=== PATIENT | female | born 1955 | race Caucasian/White ===

== ENCOUNTER → 2016-04-07 | Outpatient (CLI) | payer BC ==
[~2016-04-07] MED LIST: ATEN-173 PO; CHOL100010 PO; CLX20 PO; SIMV20TA2 PO; SNG10 PO
--- NOTE | 2016-04-10 13:48 | MAMMOGRAPHY REPORT ---
BILATERAL DIGITAL SCREENING MAMMOGRAM TOMOSYNTHESIS WITH CAD: 04/07/2016 CLINICAL HISTORY: Routine screening. Patient has no complaints. TECHNIQUE: Breast tomosynthesis in addition to standard 2D mammography was performed. Current study was also evaluated with a Computer Aided Detection (CAD) system. COMPARISON: Comparison is made to exams dated: 03/26/2015 mammogram, 02/23/2014 mammogram, 02/21/2013 mammogram, 12/03/2009 mammogram - [facility], and 06/04/2008. BREAST COMPOSITION: The tissue of both breasts is almost entirely fatty. FINDINGS: No suspicious masses, calcifications, or areas of architectural distortion are noted in e ither breast. There has been no significant interval change compared to prior exams. There are stab le postsurgical changes from bilateral reduction mammoplasty. Bilateral benign-appearing calcificat ions are not significantly changed. IMPRESSION: ACR BI-RADS CATEGORY 2: BENIGN There is no mammographic evidence of malignancy. A 1 year screening mammogram is recommended. The p atient will receive written notification of the results. Approximately 10% of breast cancers are not detected with mammography. A negative mammographic repor t should not delay biopsy if a clinically suggestive mass is present. Stormy Osborn M.D. ah/:04/07/2016 12:47:19 Building Components Designer: Dalia ELLIOTT)(Dashawn), [facility] letter sent: Normal 1/2 BI-RADS Code: ACR BI-RADS Category 2: Benign
== END | disposition home or self-care (01) ==
LOC: C.MAMM 11:05
PROVIDERS: ATTEND Family Medicine
DX: Z12.31 Encounter for screening mammogram for malignant neoplasm of breast (principal)

== ENCOUNTER → 2017-02-08 | Outpatient (CLI) | payer OTHER ==
[~2017-02-08] MED LIST changes: +CLX40 PO
[2017-02-08 12:36] LABS: BASO % 0.2 %; BASO ABS # 0.02 K/uL (0-0.2); EOS % 1.6 %; EOS ABS # 0.21 K/uL (0-0.5); HEMATOCRIT 43.2 % (37-47); HEMOGLOBIN 14.2 g/dL (12.0-16.0); LYMPH % 21.4 %; MEAN CELL VOLUME 92.1 fL (80-100); MEAN CORPUSCULAR HEMOGLOBIN 30.3 pg (25-34); MEAN CORPUSCULAR HGB CONC 32.9 g/dl (32-36); MEAN PLATELET VOLUME 11.4 fL (7.4-10.4); MONO % 8.5 %; MONO ABS # 1.11 K/uL (0.11-0.59); NEUT % 67.5 %; NEUT ABS # 8.87 K/uL (1.4-6.5); PLATELET COUNT 154 K/uL (130-400); RED CELL DISTRIBUTION WIDTH CV 14.3 % (11.5-14.5); RED CELL DISTRIBUTION WIDTH SD 48.1 fL (36.4-46.3); WHITE BLOOD COUNT 13.11 K/uL (4.8-10.8)
[2017-02-08 15:56] LABS: ALBUMIN 3.6 gm/dl (3.4-5.0); ALKALINE PHOSPHATASE 87 U/L (45-117); AST/SGOT 17 U/L (15-37); BLOOD UREA NITROGEN 21 mg/dl (7-18); CALCIUM 9.6 mg/dl (8.5-10.1); CARBON DIOXIDE 27 mmol/L (21-32); CREATININE 0.87 mg/dl (0.60-1.20); GLUCOSE 97 mg/dl (70-99); POTASSIUM 4.4 mmol/L (3.5-5.1); SODIUM 134 mmol/L (136-145); TOTAL PROTEIN 8.1 gm/dl (6.4-8.2); URIC ACID 5.6 mg/dl (2.6-7.2)
[2017-02-08 16:07] LABS: ALT/SGPT 29 U/L (12-78); CHOLESTEROL 210 mg/dl (0-200); LDL CHOLESTEROL CALCULATED 124 mg/dl
== END | disposition home or self-care (01) ==
LOC: C.LABBFT 10:22
PROVIDERS: ATTEND Internal Medicine
DX: M25.50 Pain in unspecified joint (principal); E78.5 Hyperlipidemia, unspecified; I10 Essential (primary) hypertension; R73.9 Hyperglycemia, unspecified

== ENCOUNTER → 2017-02-14 | Outpatient (CLI) | payer OTHER ==
--- NOTE | 2017-02-14 15:25 | DIAGNOSTIC IMAGING REPORT ---
LEFT ANKLE 3 VIEWS, RIGHT ANKLE 3 VIEWS HISTORY: Bilateral ankle pain. M17.10 Localized primary osteoarthritis of lower leg COMPARISON: None. FINDINGS: There is no fracture or dislocation. Mild soft tissue swelling within the right ankle. The left ankle soft tissues are unremarkable. Minor cartilage space narrowing within the bilateral ankles with small marginal osteophytes. This is consistent with osteoarthritis. Plantar and posterior calcaneal spurs bilaterally. IMPRESSION: 1. Minor arthritic changes within the bilateral ankles. 2. Soft tissue swelling within the right ankle. 3. No acute fracture or dislocation within the right or left ankle. Electronically signed by: Michael Celaya M.D. 02/14/2017 3:24 PM Dictated Date/Time: 02/14/2017 3:21 PM
--- NOTE | 2017-02-14 15:27 | DIAGNOSTIC IMAGING REPORT ---
R HIP UNILATERAL 2 VIEWS, L HIP UNILATERAL 2 VIEWS CLINICAL HISTORY: HIP PAIN,BILATERAL COMPARISON STUDY: None. FINDINGS: No fracture or dislocation within the right or left hip. Cartilage spaces are maintained for age. Soft tissues are unremarkable. The visualized pelvic bones are intact. IMPRESSION: No significant abnormality within the right or left hip. Electronically signed by: Michael Celaya M.D. 02/14/2017 3:25 PM Dictated Date/Time: 02/14/2017 3:24 PM
== END | disposition home or self-care (01) ==
LOC: C.RAD1850 14:58
PROVIDERS: ATTEND Internal Medicine
DX: M17.10 Unilateral primary osteoarthritis, unspecified knee (principal); M25.551 Pain in right hip; M25.552 Pain in left hip

== ENCOUNTER → 2017-04-10 | Outpatient (CLI) | payer OTHER ==
--- NOTE | 2017-04-12 08:01 | MAMMOGRAPHY REPORT ---
BILATERAL DIGITAL SCREENING MAMMOGRAM TOMOSYNTHESIS WITH CAD: 04/10/2017 CLINICAL HISTORY: Routine screening. Patient has no complaints. TECHNIQUE: Breast tomosynthesis in addition to standard 2D mammography was performed. Current study was also evaluated with a Computer Aided Detection (CAD) system. COMPARISON: Comparison is made to exams dated: 04/07/2016 mammogram, 03/26/2015 mammogram, 02/23/2014 ma mmogram, 02/21/2013 mammogram, 12/03/2009 mammogram - [facility], and 04/10/2007. BREAST COMPOSITION: The tissue of both breasts is almost entirely fatty. FINDINGS: There is evidence of prior bilateral breast surgery. There are benign punctate and rim rodney cifications in both breasts. No suspicious mass, architectural distortion or cluster of microcalcifi cations is seen. IMPRESSION: ACR BI-RADS CATEGORY 1: NEGATIVE There is no mammographic evidence of malignancy. A 1 year screening mammogram is recommended. The pa tient will receive written notification of the results. Approximately 10% of breast cancers are not detected with mammography. A negative mammographic report should not delay biopsy if a clinically suggestive mass is present. Griselda Kevin M.D. ay/:04/10/2017 17:21:24 Hydraulics Teacher: Ruth Ann Cruz, [facility] letter sent: Normal 1/2 BI-RADS Code: ACR BI-RADS Category 1: Negative
== END | disposition home or self-care (01) ==
LOC: C.MAMM 08:53
PROVIDERS: ATTEND Internal Medicine
DX: Z12.31 Encounter for screening mammogram for malignant neoplasm of breast (principal)

== ENCOUNTER 2022-06-18 12:47 | Inpatient (IN) ==
[2022-06-18] MEDS ORDERED: SODIUM CHLORIDE 0.9% 1000ML 1,000 ML IV STA (12:55)
[2022-06-18] MEDS ORDERED: ACETAMINOPHEN 500 MG TAB PO STA (13:02)
--- NOTE | 2022-06-18 13:08 | Emergency Department Note ---
Impression & Plan Acute pyelonephritis, Sepsis, Breathlessness, Nausea ED Provider Note Provider: Miguel Ratliff MD DATE OF SERVICE: 06/18/2022 CHIEF COMPLAINT: Chills, nausea, shortness of breath HISTORY OF PRESENT ILLNESS: Patient is a 67-year-old female history of hypertension and arthritis presenting here today reporting developing yesterday evening some shortness of breath with nausea and an episode of some nonbloody diarrhea. Denies any syncope or falls. Reports she feels short of breath and very thirsty. Had a little bit of yogurt today but not eating and drinking as much. Reports a bit of a headache. Reports some chills and shakes. Denies significant abdominal pain or chest pain. Denies sick contact to her knowledge. No trauma history reported. Denies suspect food intake. Denies significant nausea currently. Did not use any medications at home. Again chills and sweats at home. PAST MEDICAL HISTORY: As noted above MEDICATIONS: Reviewed home medications SOCIAL HISTORY: Non-smoker, PHYSICAL EXAM: GENERAL: alert and oriented in no acute distress on stretcher Head: normocephalic and atraumatic EYES: No injection, discharge or icterus. NECK: Trachea midline. Supple. ENT: Mucous membranes pink and moist. Pharynx without erythema or exudate. LUNGS: Airway patent. No retractions. Breath sounds clear but somewhat tachypneic HEART: Regular rate and rhythm. No chest wall tenderness ABDOMEN: Soft and non-tender, without guarding or rebound. No masses appreci ated. SKIN: Acyanotic, warm, dry, without rashes EXTREMITIES: Without swelling, tenderness or deformity NEUROLOGICAL: No focal deficits. No aphasia. No facial droop or slurred speech. Ambulatory. EK bpm normal sinus rhythm. No PVC or PAC. No acute ST segment elevation or depression with a QTc of 424. CONTINUOUS CARDIAC MONITORING: was ordered and showed a heart rate of 90s-100s bpm in normal sinus rhythm to sinus tachycardia Patient's laboratory studies and imaging reviewed. Differential includes Viral syndrome, otitis, pharyngitis, pneumonia, influenza, meningitis, urinary tract infection, sepsis, bacteremia, as well as other pathologies. IMPRESSION/MEDICAL DECISION MAKING: Patient with onset yesterday of some shortness of breath with mild nausea and diarrhea. Denies chest pain or abdominal pain. Benign abdomen on exam. Reports chills and sweats and feeling feverish. Febrile upon arrival. No meds prior to arrival. Given some Tylenol IV fluid here. Borderline oxygen level of 91 and no history of smoking reported. Does not sound appreciably wheezy on exam. We will complete a CT of the chest to exclude PE or other underlying pathology such as pneumonia. We will complete a CT through the abdomen pelvis as well given her diarrhea and nausea symptoms although not severe given the reported fever and chills. Respiratory viral panel ordered. EKG and basic labs as well as lactate and blood cultures ordered. Liter of IV fluid ordered initially as she has some decreased intake endorses some thirst. Denies nausea at this time. Blood work here without anemia. Stable chronic thrombocytopenia. Slight leukocytosis of approximately 12 noted. Mild lactate elevation of 2.7. 30 mL/kg of IV fluid given based on her ideal body weight for hydration. Mild hyponatremia of 132. No significant renal dysfunction. No evidence of otitis pancreatitis with a normal troponin. Procalcitonin is elevated just over 1. Negative respiratory viral panel. CT report of the chest and abdomen pelvis per radiology indicated no evidence of pulmonary embolism with atelectatic findings or scarring. Some pulmonary hypertension was noted with incidental right thyroid nodule. Made aware of the incidental thyroid nodule. CT abdomen pelvis shows inflammatory changes of the right kidney concerning for infection likely consistent with her symptoms. Given her elevated procalcitonin with symptoms of borderline sepsis discussed with her staying for further care here. Patient is however on reevaluation feeling much improved and is no longer as tachypneic or having chills/rigors. She was in agreement to stay with observation and the hospitalist was contacted. Question if her rigors if she may have bacteremia. Clinically improved at this time. DIAGNOSIS: Right pyelonephritis, nausea, chills, shortness of breath, sepsis DISPOSITION: Hospitalist will evaluate Patient was agreeable with this plan. Past Med/Surg History Medical History (Updated 06/18/22 @ 16:11 by Avinash Kelly MD) Depression Hyperlipidemia Hypertension Morbid obesity Osteoarthritis Sleep apnea USES CPAP Thrombocytopenia recent labs show plts over 110K each time Surgical History H/O tubal ligation H/O: section History of bilateral knee replacement History of carpal tunnel surgery of right wrist History of cholecystectomy Hx of breast reduction, elective Hx of colonoscopy Hx of hysterectomy, total Family History Mother Hypertension Ovarian cancer Depression Father Alcohol abuse Kidney stones Brother Rheumatoid arthritis Depression Denies family history of Sudden SIDS (sudden syndrome) Prostate cancer Diabetes Deep vein thrombosis Osteoporosis Coronary heart disease Dyslipidemia Cerebral aneurysm Alzheimer disease Bipolar disorder Clotting disorder Crohn's disease Dementia Heart disease Kidney disease Myocardial infarction Osteoarthritis Breast cancer Schizophrenia Congenital kidney disease Gestational diabetes Lung cancer COPD (chronic obstructive pulmonary disease) Colorectal cancer Pulmonary embolism Lung disease Cancer Ulcerative colitis Colonic polyp Stroke Asthma Cystic kidney disease Social History Smoking Status: Never smoker Second Hand Exposure: No; Do You Dip or Chew Tobacco: No; Hx Alcohol Use: No Hx Substance Use: No Preferred Language: Estonian Communication Ability: Effective Visual Impairment: No Limitations Hearing Ability: Normal Right Of Way Maintenance Supervisor Required: No Beliefs That Will Affect Care: None marital status: Current Living Situation: Spouse 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 Children do You have: 1 Feels Safe at Home: Yes Childhood Exposure to Second-Hand Smoke: No Diet: regular caffeine: Yes (iced tea) during the past year weight has: increased > 10 lbs Dental Care, Regularly: Yes Physical Activity Frequency: Does not Exercise Seatbelt Use: always Sunscreen Use: No Assistive Devices: CPAP and Glasses Allergies Allergies Allergy/AdvReac Type Severity Reaction Status Date / Time Sulfa (Sulfonamide Allergy Intermediate Hives Verified 06/18/22 15:15 Antibiotics) Home Meds Home Medications Medication Instructions Recorded Confirmed cholecalciferol (vitamin D3) 50 2,000 unit PO QAM 02/06/18 06/18/22 mcg (2,000 unit) tablet docusate sodium 100 mg capsule 100 mg PO BID 07/30/19 06/18/22 (Stool Softener) polyethylene glycol 3350 17 17 g PO DAILY PRN Constipation 04/21/20 06/18/22 gram/dose oral powder (ClearLax) prevagen 1 dose PO DAILY 05/15/22 06/18/22 Previous Rx's Medication Instructions Recorded losartan 50 mg tablet 50 mg PO QAM #90 tabs 11/01/21 montelukast 10 mg tablet 10 mg PO PM #90 tabs 01/17/22 citalopram 20 mg tablet 20 mg PO QAM #90 tabs 01/18/22 citalopram 40 mg tablet 40 mg PO QPM #90 tabs 01/18/22 celecoxib 200 mg capsule 200 mg PO BID #180 caps 04/27/22 cyclobenzaprine 10 mg tablet 10 mg PO TID PRN muscle spasm #90 04/27/22 tabs metformin 500 mg tablet 500 mg PO BID #180 tabs 05/31/22 rosuvastatin 40 mg tablet 40 mg PO DAILY #90 tabs 05/31/22 Results & Data (ED) Vital Signs Vital Signs - 24 hr 06/18/22 12:50 06/18/22 13:11 06/18/22 13:22 Temperature 38.2 C H Temperature Source Temporal Artery Scan Pulse Rate 103 H 91 H Pulse Rate [Apical] 95 H Respiratory Rate 20 22 Respiratory Effort / Characteristics Non-Labored Non-Labored Respiratory Depth Normal Blood Pressure 158/88 H Blood Pressure [Right Arm] 180/78 H Blood Pressure Mean 111 Blood Pressure Mean [Right Arm] 112 Pulse Oximetry 94 89 L Oxygen Delivery Method Room Air Room Air Sepsis Recent Fever Within 48 Hours No Sepsis New/Unexplained Change in Mental Status N/A Sepsis Action Taken by Nursing No Action Required 06/18/22 14:40 06/18/22 16:03 06/18/22 17:15 Temperature 37.4 C Temperature Source Oral Pulse Rate 72 Pulse Rate [Apical] 84 79 Respiratory Rate 20 20 Respiratory Effort / Characteristics Non-Labored Non-Labored Respiratory Depth Normal Normal Blood Pressure Blood Pressure [Right Arm] 127/65 133/81 Blood Pressure Mean Blood Pressure Mean [Right Arm] 85 98 Pulse Oximetry 95 93 Oxygen Delivery Method Room Air Room Air Sepsis Recent Fever Within 48 Hours Sepsis New/Unexplained Change in Mental Status Sepsis Action Taken by Nursing Laboratory Data 06/18/22 13:10 06/18/22 13:10 Lab Results 06/18/22 06/18/22 06/18/22 Range/Units 13:10 13:10 13:10 WBC 11.99 H (4.8-10.8) K/ul RBC 4.18 L (4.20-5.40) M/uL Hgb 12.9 (12.0-16.0) g/dl Hct 39.1 (37.0-47.0) % MCV 93.5 (80.0-100.0) fL MCH 30.9 (25.0-34.0) pg MCHC 33.0 (32.0-36.0) g/dL RDW Std Deviation 46.5 H (36.4-46.3) fL RDW Coeff of Jeronimo 13.7 (11.5-14.5) % Plt Count 111 L (130-400) K/uL MPV 11.3 (9.4-12.4) fL Immature Gran % (Auto) 1.4 % Neut % (Auto) 85.8 % Lymph % (Auto) 7.4 % [place] % (Auto) 5.1 % Eos % (Auto) 0.0 % Baso % (Auto) 0.3 % Neut # (Auto) 10.29 H (1.40-6.50) K/uL Lymph # (Auto) 0.89 L (1.2-3.4) K/uL [place] # (Auto) 0.61 H (0.11-0.59) K/uL Eos # (Auto) 0.00 (0-0.50) K/uL Baso # (Auto) 0.03 (0-0.2) K/uL Immature Gran # (Auto) 0.17 (0.01-0.20) K/uL Sodium 132 L (136-145) mmol/L Potassium 4.5 (3.5-5.1) mmol/L Chloride 96 L (98-107) mmol/L Carbon Dioxide 26 (21-32) mmol/L Anion Gap 10 (3-11) BUN 23 (6-23) mg/dl Creatinine 1.16 (0.6-1.2) mg/dl Est Cr Clr Drug Dosing 54.9 ml/min Est GFR ( Amer) 55.6 ml/min Est GFR (Non-Af Amer) 48.0 ml/min BUN/Creatinine Ratio 19.8 (10-20) Glucose 180 H (70-99(Fasting)) mg/dl Lactate 2.7 H* (0.4-2.0) mmol/L Calcium 9.5 (8.6-10.3) mg/dl Total Bilirubin 0.8 (0.2-1.0) mg/dl AST 33 (13-39) U/L ALT 34 (7-52) U/L Alkaline Phosphatase 101 (34-104) U/L Troponin I High Sens 8.9 (0-14) pg/ml Total Protein 7.7 (6.0-8.3) gm/dl Albumin 4.1 (3.4-5.0) gm/dl Globulin 3.6 (2.5-4.0) gm/dl Albumin/Globulin Ratio 1.1 (0.9-2) Lipase 28 (11-82) U/L Procalcitonin (0-0.5) ng/ml Urine Color Urine Appearance (Clear) Urine pH (4.5-7.5) Ur Specific Gallant (1.000-1.030) Urine Protein (Negative) Urine Glucose (UA) (Negative) Urine Ketones (Negative) Urine Blood (Negative) Urine Nitrite (Negative) Urine Bilirubin (Negative) Urine Urobilinogen (Negative) Ur Leukocyte Esterase (Negative) Urine WBC (Auto) (0-5) /hpf Urine RBC (Auto) (0-4) /hpf U Hyaline Cast (Auto) (0-5) /lpf U Epithel Cells (Auto) (0-5) /lpf Urine Bacteria (Auto) (Negative) Adenovirus (PCR) (NotDetected) B. pertussis DNA (PCR) (NotDetected) B.parapertussis DNA PCR (NotDetected) C. pneumoniae DNA (PCR) (NotDetected) Coronavirus OC43 (PCR) (NotDetected) Coronavirus HKU1 (PCR) (NotDetected) Coronavirus 229E (PCR) (NotDetected) SARS-CoV-2 (PCR) (NotDetected) Coronavirus NL63 (PCR) (NotDetected) Human Metapneumovir PCR (NotDetected) Influenza Type A (PCR) (NotDetected) Influenza Type B (PCR) (NotDetected) M. pneumoniae (PCR) (NotDetected) Parainfluenza 1 (PCR) (NotDetected) Parainfluenza 2 (PCR) (NotDetected) Parainfluenza 3 (PCR) (NotDetected) Parainfluenza 4 (PCR) (NotDetected) RSV (PCR) (NotDetected) Entero/Rhino (PCR) (NotDetected) 05/14/23 05/14/23 05/14/23 Range/Units 13:10 13:10 15:07 WBC (4.8-10.8) K/ul RBC (4.20-5.40) M/uL Hgb (12.0-16.0) g/dl Hct (37.0-47.0) % MCV (80.0-100.0) fL MCH (25.0-34.0) pg MCHC (32.0-36.0) g/dL RDW Std Deviation (36.4-46.3) fL RDW Coeff of Jeronimo (11.5-14.5) % Plt Count (130-400) K/uL MPV (9.4-12.4) fL Immature Gran % (Auto) % Neut % (Auto) % Lymph % (Auto) % [place] % (Auto) % Eos % (Auto) % Baso % (Auto) % Neut # (Auto) (1.40-6.50) K/uL Lymph # (Auto) (1.2-3.4) K/uL [place] # (Auto) (0.11-0.59) K/uL Eos # (Auto) (0-0.50) K/uL Baso # (Auto) (0-0.2) K/uL Immature Gran # (Auto) (0.01-0.20) K/uL Sodium (136-145) mmol/L Potassium (3.5-5.1) mmol/L Chloride (98-107) mmol/L Carbon Dioxide (21-32) mmol/L Anion Gap (3-11) BUN (6-23) mg/dl Creatinine (0.6-1.2) mg/dl Est Cr Clr Drug Dosing ml/min Est GFR ( Amer) ml/min Est GFR (Non-Af Amer) ml/min BUN/Creatinine Ratio (10-20) Glucose (70-99(Fasting)) mg/dl Lactate 1.2 (0.4-2.0) mmol/L Calcium (8.6-10.3) mg/dl Total Bilirubin (0.2-1.0) mg/dl AST (13-39) U/L ALT (7-52) U/L Alkaline Phosphatase (34-104) U/L Troponin I High Sens (0-14) pg/ml Total Protein (6.0-8.3) gm/dl Albumin (3.4-5.0) gm/dl Globulin (2.5-4.0) gm/dl Albumin/Globulin Ratio (0.9-2) Lipase (11-82) U/L Procalcitonin 1.03 H (0-0.5) ng/ml Urine Color Urine Appearance (Clear) Urine pH (4.5-7.5) Ur Specific Gallant (1.000-1.030) Urine Protein (Negative) Urine Glucose (UA) (Negative) Urine Ketones (Negative) Urine Blood (Negative) Urine Nitrite (Negative) Urine Bilirubin (Negative) Urine Urobilinogen (Negative) Ur Leukocyte Esterase (Negative) Urine WBC (Auto) (0-5) /hpf Urine RBC (Auto) (0-4) /hpf U Hyaline Cast (Auto) (0-5) /lpf U Epithel Cells (Auto) (0-5) /lpf Urine Bacteria (Auto) (Negative) Adenovirus (PCR) Not Detected (NotDetected) B. pertussis DNA (PCR) Not Detected (NotDetected) B.parapertussis DNA PCR Not Detected (NotDetected) C. pneumoniae DNA (PCR) Not Detected (NotDetected) Coronavirus OC43 (PCR) Not Detected (NotDetected) Coronavirus HKU1 (PCR) Not Detected (NotDetected) Coronavirus 229E (PCR) Not Detected (NotDetected) SARS-CoV-2 (PCR) Not Detected (NotDetected) Coronavirus NL63 (PCR) Not Detected (NotDetected) Human Metapneumovir PCR Not Detected (NotDetected) Influenza Type A (PCR) Not Detected (NotDetected) Influenza Type B (PCR) Not Detected (NotDetected) M. pneumoniae (PCR) Not Detected (NotDetected) Parainfluenza 1 (PCR) Not Detected (NotDetected) Parainfluenza 2 (PCR) Not Detected (NotDetected) Parainfluenza 3 (PCR) Not Detected (NotDetected) Parainfluenza 4 (PCR) Not Detected (NotDetected) RSV (PCR) Not Detected (NotDetected) Entero/Rhino (PCR) Not Detected (NotDetected) 06/18/22 Range/Units 15:07 WBC (4.8-10.8) K/ul RBC (4.20-5.40) M/uL Hgb (12.0-16.0) g/dl Hct (37.0-47.0) % MCV (80.0-100.0) fL MCH (25.0-34.0) pg MCHC (32.0-36.0) g/dL RDW Std Deviation (36.4-46.3) fL RDW Coeff of Jeronimo (11.5-14.5) % Plt Count (130-400) K/uL MPV (9.4-12.4) fL Immature Gran % (Auto) % Neut % (Auto) % Lymph % (Auto) % [place] % (Auto) % Eos % (Auto) % Baso % (Auto) % Neut # (Auto) (1.40-6.50) K/uL Lymph # (Auto) (1.2-3.4) K/uL [place] # (Auto) (0.11-0.59) K/uL Eos # (Auto) (0-0.50) K/uL Baso # (Auto) (0-0.2) K/uL Immature Gran # (Auto) (0.01-0.20) K/uL Sodium (136-145) mmol/L Potassium (3.5-5.1) mmol/L Chloride (98-107) mmol/L Carbon Dioxide (21-32) mmol/L Anion Gap (3-11) BUN (6-23) mg/dl Creatinine (0.6-1.2) mg/dl Est Cr Clr Drug Dosing ml/min Est GFR ( Amer) ml/min Est GFR (Non-Af Amer) ml/min BUN/Creatinine Ratio (10-20) Glucose (70-99(Fasting)) mg/dl Lactate (0.4-2.0) mmol/L Calcium (8.6-10.3) mg/dl Total Bilirubin (0.2-1.0) mg/dl AST (13-39) U/L ALT (7-52) U/L Alkaline Phosphatase (34-104) U/L Troponin I High Sens (0-14) pg/ml Total Protein (6.0-8.3) gm/dl Albumin (3.4-5.0) gm/dl Globulin (2.5-4.0) gm/dl Albumin/Globulin Ratio (0.9-2) Lipase (11-82) U/L Procalcitonin (0-0.5) ng/ml Urine Color Dark Yellow Urine Appearance Cloudy A (Clear) Urine pH 6.0 (4.5-7.5) Ur Specific Gallant > 1.045 H (1.000-1.030) Urine Protein 2+ H (Negative) Urine Glucose (UA) Negative (Negative) Urine Ketones Negative (Negative) Urine Blood 2+ H (Negative) Urine Nitrite Positive A (Negative) Urine Bilirubin Negative (Negative) Urine Urobilinogen Negative (Negative) Ur Leukocyte Esterase 2+ H (Negative) Urine WBC (Auto) >30 H (0-5) /hpf Urine RBC (Auto) 0-4 (0-4) /hpf U Hyaline Cast (Auto) 1-5 (0-5) /lpf U Epithel Cells (Auto) 5-10 H (0-5) /lpf Urine Bacteria (Auto) 4+ H (Negative) Adenovirus (PCR) (NotDetected) B. pertussis DNA (PCR) (NotDetected) B.parapertussis DNA PCR (NotDetected) C. pneumoniae DNA (PCR) (NotDetected) Coronavirus OC43 (PCR) (NotDetected) Coronavirus HKU1 (PCR) (NotDetected) Coronavirus 229E (PCR) (NotDetected) SARS-CoV-2 (PCR) (NotDetected) Coronavirus NL63 (PCR) (NotDetected) Human Metapneumovir PCR (NotDetected) Influenza Type A (PCR) (NotDetected) Influenza Type B (PCR) (NotDetected) M. pneumoniae (PCR) (NotDetected) Parainfluenza 1 (PCR) (NotDetected) Parainfluenza 2 (PCR) (NotDetected) Parainfluenza 3 (PCR) (NotDetected) Parainfluenza 4 (PCR) (NotDetected) RSV (PCR) (NotDetected) Entero/Rhino (PCR) (NotDetected) Administered Medications Discontinued Medications Acetaminophen (Acetaminophen 500 Mg Tab) 1,000 mg PO NOW STA Stop: 06/18/22 13:03 Last Admin: 06/18/22 13:15 Dose: 1,000 mg Documented By: ES Sodium Chloride (Nss 1000ml) 1,000 mls @ 999 mls/hr IV .Q1H1M STA Stop: 06/18/22 13:55 Last Infusion: 06/18/22 14:19 Dose: 0 mls/hr Documented By: Admin: 06/18/22 13:15 Dose: 999 mls/hr Documented By: ES Sodium Chloride (Nss 1000ml) 500 mls @ 999 mls/hr IV .Q31M ONE Stop: 06/18/22 14:19 Last Infusion: 06/18/22 16:03 Dose: 0 mls/hr Documented By: Admin: 06/18/22 15:24 Dose: 999 mls/hr Documented By: ES Ceftriaxone Sodium (Rocephin) 2,000 mg in 70 mls @ 140 mls/hr IV NOW STA Stop: 06/18/22 15:32 Last Infusion: 06/18/22 16:02 Dose: 0 mls/hr Documented By: Admin: 06/18/22 15:24 Dose: 140 mls/hr Documented By: ES Ioversol (Optiray 320 500ml) 104 ml IV ONCE ONE Stop: 06/18/22 14:25 Last Admin: 06/18/22 14:24 Dose: 104 ml Documented By: EDK Imaging Data Radiologist's Impression: Abdomen/Pelvis CT 06/18/22 13:02 CT abd pelvis IV con only CLINICAL HISTORY: PE, tachy, sob, nausea, chills TECHNIQUE: Helical axial images of the abdomen and pelvis were obtained and displayed. Automated dose lowering techniques and/or adjustment according to patient size were utilized for this exam. This exam was performed with intravenous contrast. COMPARISON: None available at the time of this dictation. FINDINGS: Lower chest: For findings above the diaphragm, please see CT chest performed same day. Liver: A 19 mm irregular cystic lesion is in the right lower liver. Gallbladder and biliary tree: Patient is status post cholecystectomy. No intra- or extrahepatic biliary ductal dilation. Pancreas: Unremarkable, no focal lesions. Spleen: Unremarkable. Adrenals: Unremarkable. Kidneys and ureters: There is ill-defined hypoenhancement of the right kidney with enlargement and surrounding fat stranding. Enhancement of the right ureteric jackson is noted. Bladder: Limited evaluation due to underdistention. Reproductive organs: Patient is status post hysterectomy. Bowel: Diverticulosis is seen without evidence of diverticulitis. Lymph nodes Retroperitoneal: Partially calcified density in the right retroperitoneal region may represent a vein with phleboliths versus a partially calcified lymph node. Pelvic: Unremarkable. Mesenteric: Unremarkable. Peritoneum: Normal. Vessels: Unremarkable. Abdominal wall: A fat-containing umbilical hernia is seen. Bones: Degenerative changes in the visualized spine. IMPRESSION: Findings are concerning for right pyelonephritis in this patient with nausea and chills. ACT 112: Negative or not required by law. Electronically signed by: David Velarde M.D. 06/18/2022 2:58 PM Chest CTA 06/18/22 13:02 CT angio chest PE protocol CLINICAL HISTORY: PE, tachy, sob, nausea, chills TECHNIQUE: Multidetector row helical CT of the chest was performed with angiographic protocol. Coronal and sagittal reformations were obtained. Coronal and sagittal MIPS were obtained from the axial data set and were submitted for review. Automated dose lowering techniques and/or adjustment according to patient size were utilized for this exam. CT DOSE: 1994.94 mGy.cm Comparison: None available at the time of this dictation. FINDINGS: Lungs and pleura: Atelectasis versus scarring is seen in the dependent portions of the lungs. There is a 3 mm nodule in the right middle lobe (image 112). Heart and pericardium: Heart size is normal. No pericardial effusion. Vessels: No evidence of pulmonary embolism. The pulmonary trunk measures 36 mm in diameter. Mediastinum and beti: Unremarkable. Chest wall and lower neck: A right thyroid nodule measures 18 mm in diameter. Abdomen: For findings below the diaphragm, please refer to CT of the abdomen dated the same. Bones: Degenerative changes in the thoracic spine. IMPRESSION: 1. No pulmonary embolus is seen. 2. Atelectasis versus scarring is seen. Pulmonary hypertension is noted. 3. Right thyroid nodule measures 18 mm. If not previously evaluated, nonemergent thyroid ultrasound can be performed. ACT 112: Negative or not required by law. Electronically signed by: David Velarde M.D. 06/18/2022 2:45 PM Discharge Plan Visit Data Chief Complaint: Illness Stated Complaint: CHILLS, VOMITING, LOOSES STOOLS, DIZZINESS ED Provider: Miguel Ratliff Discharge Problem: Acute pyelonephritis, Sepsis, Breathlessness, Nausea Patient Disposition: Admitted As Inpatient Forms Stand Alone Forms: [facility] Prescriptions Prescriptions: No Action losartan 50 mg tablet 50 mg PO QAM Qty: 90 3RF montelukast 10 mg tablet 10 mg PO PM Qty: 90 3RF citalopram 40 mg tablet 40 mg PO QPM Qty: 90 3RF citalopram 20 mg tablet 20 mg PO QAM Qty: 90 3RF celecoxib 200 mg capsule 200 mg PO BID Qty: 180 3RF cyclobenzaprine 10 mg tablet 10 mg PO TID PRN (Reason: muscle spasm) Qty: 90 1RF metformin 500 mg tablet 500 mg PO BID Qty: 180 3RF rosuvastatin 40 mg tablet 40 mg PO DAILY Qty: 90 3RF docusate sodium [Stool Softener] 100 mg capsule 100 mg PO BID prevagen 1 dose PO DAILY polyethylene glycol 3350 [ClearLax] 17 gram/dose powder 17 g PO DAILY PRN (Reason: Constipation) cholecalciferol (vitamin D3) 2,000 unit Tablet 2,000 unit PO QAM Referrals Referrals: Danisha Gage CRNP [Primary Care Provider] -
[2022-06-18 13:42] LABS: Basophils # (auto) 0.03 K/uL (0-0.2); Basophils % (auto) 0.3 %; Hematocrit (blood only) 39.1 % (37.0-47.0); Hemoglobin 12.9 g/dl (12.0-16.0); Immature Granulocytes # (auto) 0.17 K/uL (0.01-0.20); Immature Granulocytes % (auto) 1.4 %; Lymphocytes # (auto) 0.89 K/uL (1.2-3.4); Lymphocytes % (auto) 7.4 %; Mean Corpuscular Hemoglobin 30.9 pg (25.0-34.0); Mean Corpuscular Volume 93.5 fL (80.0-100.0); Mean Platelet Volume 11.3 fL (9.4-12.4); Monocytes # (auto) 0.61 K/uL (0.11-0.59); Monocytes % (auto) 5.1 %; Neutrophils # (auto) 10.29 K/uL (1.40-6.50); Neutrophils % (auto) 85.8 %; Platelet Count 111 K/uL (130-400); RDW Coefficient of Variation 13.7 % (11.5-14.5); RDW Standard Deviation 46.5 fL (36.4-46.3); Red Blood Count 4.18 M/uL (4.20-5.40); White Blood Count 11.99 K/ul (4.8-10.8)
[2022-06-18] MEDS ORDERED: SODIUM CHLORIDE 0.9% 1000ML 500 ML IV ONE (13:49)
[2022-06-18 13:55] LABS: Albumin Globulin Ratio 1.1 (0.9-2); Albumin Level 4.1 gm/dl (3.4-5.0); BUN Creatinine Ratio 19.8 (10-20); Bilirubin,Total 0.8 mg/dl (0.2-1.0); Calcium 9.5 mg/dl (8.6-10.3); Creatinine Clr Calc Pharmacy 54.9 ml/min; Est GFR (African American) 55.6 ml/min; Globulin 3.6 gm/dl (2.5-4.0); Potassium 4.5 mmol/L (3.5-5.1); Total Protein 7.7 gm/dl (6.0-8.3)
[2022-06-18 14:01] LABS: Troponin I High Sensitivity 8.9 pg/ml (0-14)
[2022-06-18 14:14] LABS: Adenovirus PCR Not Detected (NotDetected); Bordetella parapertussis PCR Not Detected (NotDetected); Bordetella pertussis PCR Not Detected (NotDetected); Chlamydia pneumoniae PCR Not Detected (NotDetected); Coronavirus 229E PCR Not Detected (NotDetected); Coronavirus CoV-2 (COVID19)PCR Not Detected (NotDetected); Coronavirus HKU1 PCR Not Detected (NotDetected); Coronavirus NL63 PCR Not Detected (NotDetected); Coronavirus OC43PCR Not Detected (NotDetected); Human Metapneumovirus PCR Not Detected (NotDetected); Influenza A PCR Not Detected (NotDetected); Influenza B PCR Not Detected (NotDetected); Mycoplasma pneumoniae PCR Not Detected (NotDetected); Parainfluenza Virus 1 PCR Not Detected (NotDetected); Parainfluenza Virus 2 PCR Not Detected (NotDetected); Parainfluenza Virus 3 PCR Not Detected (NotDetected); Parainfluenza Virus 4 PCR Not Detected (NotDetected); Respiratory Syncytial VirusPCR Not Detected (NotDetected); Rhinovirus/Enterovirus PCR Not Detected (NotDetected)
[2022-06-18] MEDS ORDERED: OPTIRAY 320 500ml IV ONE (14:24)
--- NOTE | 2022-06-18 14:47 | CT Scan Report ---
CT angio chest PE protocol CLINICAL HISTORY: PE, tachy, sob, nausea, chills TECHNIQUE: Multidetector row helical CT of the chest was performed with angiographic protocol. [place] l and sagittal reformations were obtained. Coronal and sagittal MIPS were obtained from the axial manolo a set and were submitted for review. Automated dose lowering techniques and/or adjustment according to patient size were utilized for this exam. CT DOSE: 1994.94 mGy.cm Comparison: None available at the time of this dictation. FINDINGS: Lungs and pleura: Atelectasis versus scarring is seen in the dependent portions of the lungs. There i s a 3 mm nodule in the right middle lobe (image 112). Heart and pericardium: Heart size is normal. No pericardial effusion. Vessels: No evidence of pulmonary embolism. The pulmonary trunk measures 36 mm in diameter. Mediastinum and beti: Unremarkable. Chest wall and lower neck: A right thyroid nodule measures 18 mm in diameter. Abdomen: For findings below the diaphragm, please refer to CT of the abdomen dated the same. Bones: Degenerative changes in the thoracic spine. IMPRESSION: 1. No pulmonary embolus is seen. 2. Atelectasis versus scarring is seen. Pulmonary hypertension is noted. 3. Right thyroid nodule measures 18 mm. If not previously evaluated, nonemergent thyroid ultrasound can be performed. ACT 112: Negative or not required by law. Electronically signed by: David Velarde M.D. 06/18/2022 2:45 PM
--- NOTE | 2022-06-18 15:00 | CT Scan Report ---
CT abd pelvis IV con only CLINICAL HISTORY: PE, tachy, sob, nausea, chills TECHNIQUE: Helical axial images of the abdomen and pelvis were obtained and displayed. Automated dose lowering techniques and/or adjustment according to patient size were utilized for this exam. This e xam was performed with intravenous contrast. COMPARISON: None available at the time of this dictation. FINDINGS: Lower chest: For findings above the diaphragm, please see CT chest performed same day. Liver: A 19 mm irregular cystic lesion is in the right lower liver. Gallbladder and biliary tree: Patient is status post cholecystectomy. No intra- or extrahepatic bilia ry ductal dilation. Pancreas: Unremarkable, no focal lesions. Spleen: Unremarkable. Adrenals: Unremarkable. Kidneys and ureters: There is ill-defined hypoenhancement of the right kidney with enlargement and parada rrounding fat stranding. Enhancement of the right ureteric jackson is noted. Bladder: Limited evaluation due to underdistention. Reproductive organs: Patient is status post hysterectomy. Bowel: Diverticulosis is seen without evidence of diverticulitis. Lymph nodes Retroperitoneal: Partially calcified density in the right retroperitoneal region may represent a vein with phleboliths versus a partially calcified lymph node. Pelvic: Unremarkable. Mesenteric: Unremarkable. Peritoneum: Normal. Vessels: Unremarkable. Abdominal wall: A fat-containing umbilical hernia is seen. Bones: Degenerative changes in the visualized spine. IMPRESSION: Findings are concerning for right pyelonephritis in this patient with nausea and chills. ACT 112: Negative or not required by law. Electronically signed by: David Velarde M.D. 06/18/2022 2:58 PM
[2022-06-18] MEDS ORDERED: cefTRIAXone SODIUM 2,000 MG/70 ML BAG IV STA (15:03)
[2022-06-18 15:29] LABS: Appearance Urine Cloudy (Clear); Bacteria Urine Automated 4+ (Negative); Bilirubin Urine Negative (Negative); Blood Urine 2+ (Negative); Color Urine Dark Yellow; Glucose Urine UA Negative (Negative); Ketones Urine Negative (Negative); Leukocyte Esterase Urine 2+ (Negative); Nitrite Urine Positive (Negative); Protein Urine 2+ (Negative); RBC Urine Automated 0-4 /hpf (0-4); Specific Gravity Urine > 1.045 (1.000-1.030); Urobilinogen Urine Negative (Negative); WBC Urine Automated >30 /hpf (0-5)
--- NOTE | 2022-06-18 16:07 | History & Physical Report ---
Date of Service June 18, 2022 Assessment & Plan (1) Acute pyelonephritis: Plan: Sepsis 2/2 pyelonephritis. Acute initially unstable, improving and hemodynamically stable on reassessment Patient reports febrile with shaking chills at home, tachycardic to 103 on arrival to ER, febrile at 38.2 in ER Troponin is normal, no transaminitis Lactate elevated 2.7 on admission with procalcitonin of 1.03, lactate normalized post fluids UA infected appearing with 4+ bacteria CTA/P: Fat stranding and hypoenhancement of right kidney with aortic wall enhancement suspicious for pyelonephritis CTAchest: No PE appreciated, right thyroid nodule 18 mm appreciated, parada spected atelectasis versus scarring. No evidence of pneumonia Leukocytosis of 11.99 Patient has received 1500 cc NSS and Rocephin while in the ER. Ong body weight 48 kg, adjusted body weight 75 kg. Patient has had normalization of blood pressure and heart rate following 30 cc/kg of ideal body weight, additional aggressive fluids deferred Blood cultures pending Urine cultures pending Following conservative fluids, antibiotic therapy patient's symptoms have significantly improved, and she is hemodynamically stable. Will admit to medical/surgical. Type II DM Hold home antiglycemic's Weight-based SSI/basal Goal BSG [id number] Last A1c 6.5% HTN - Losartan continued for 06/19 Hyperlipidemia Continue rosuvastatin Anxiety/depression Continue home citalopram Lumbar stenosis Continue cyclobenzaprine as needed, hold for sedation DVT prophylaxis: Lovenox Diet: DM 2 Disposition: Medical/surgical CODE STATUS: Full code (2) Sepsis: (3) Degenerative joint disease (DJD) of hip: (4) Hyperglycemia: (5) Hyperlipidemia: (6) Hypertension: (7) Sleep apnea: History of Present Illness Primary Care Provider: VICTOR HUGO Goodwin Reshma is a 67-year-old female with a past medical history of lumbar stenosis, ROSS, hyperlipidemia, impaired fasting glucose, hypertension, and arthritis who presented with shortness of breath, nonbloody diarrhea, shaking chills/sweats and fatigue. She is found to have significantly elevated procalcitonin and inflammatory change of the right kidney concerning for urosepsis/pyelonephritis for which she has been recommended for admission 1 day of symptoms shakes, severe chills, fevers no dysuria, signiicantly increased urinary frequency and urgency No chest pressure or chest pain Had some shortness of breath when she came, this has resolved with fluids and abx No hx of MA/CAD/Heart failure. No hx of kidney disease. No hx lung disease. Hx of borderline DM. Has not yet started metformin, has been borderline for many years last A1C 6.5% Took no medicaitons this AM Hx lumbar stenosis and arthritis. Has been at baseline, pain improves with lidocaine patch. No numbness/tingling in legs, no recent weakness. + Mild R flank pain 07/15 but toleration/ Medical History: Reviewed Medications: Reviewed Surgical History: Reviewed Family history: Reviewed Allergies: Reviewed Social History: No tobacco product use or alcohol use Code Status: Full Allergies Allergy/AdvReac Type Severity Reaction Status Date / Time Sulfa (Sulfonamide Allergy Intermediate Hives Verified 06/18/22 15:15 Antibiotics) Home Medications Medication Instructions Recorded Confirmed Type cholecalciferol (vitamin D3) 50 2,000 unit PO QAM 02/06/18 06/18/22 History mcg (2,000 unit) tablet docusate sodium 100 mg capsule 100 mg PO BID 07/30/19 06/18/22 History (Stool Softener) polyethylene glycol 3350 17 17 g PO DAILY PRN Constipation 04/21/20 06/18/22 History gram/dose oral powder (ClearLax) losartan 50 mg tablet 50 mg PO QAM #90 tabs 11/01/21 06/18/22 Rx montelukast 10 mg tablet 10 mg PO PM #90 tabs 01/17/22 06/18/22 Rx citalopram 20 mg tablet 20 mg PO QAM #90 tabs 01/18/22 06/18/22 Rx citalopram 40 mg tablet 40 mg PO QPM #90 tabs 01/18/22 06/18/22 Rx celecoxib 200 mg capsule 200 mg PO BID #180 caps 04/27/22 06/18/22 Rx cyclobenzaprine 10 mg tablet 10 mg PO TID PRN muscle spasm #90 04/27/22 06/18/22 Rx tabs prevagen 1 dose PO DAILY 05/15/22 06/18/22 History metformin 500 mg tablet 500 mg PO BID #180 tabs 05/31/22 06/18/22 Rx rosuvastatin 40 mg tablet 40 mg PO DAILY #90 tabs 05/31/22 06/18/22 Rx Past Med/Surg History Medical History (Updated 06/18/22 @ 16:11 by Avinash Kelly MD) Depression Hyperlipidemia Hypertension Morbid obesity Osteoarthritis Sleep apnea USES CPAP Thrombocytopenia recent labs show plts over 110K each time Surgical History H/O tubal ligation H/O: section History of bilateral knee replacement History of carpal tunnel surgery of right wrist History of cholecystectomy Hx of breast reduction, elective Hx of colonoscopy Hx of hysterectomy, total Family History Mother Hypertension Ovarian cancer Depression Father Alcohol abuse Kidney stones Brother Rheumatoid arthritis Depression Denies family history of Sudden SIDS (sudden syndrome) Prostate cancer Diabetes Deep vein thrombosis Osteoporosis Coronary heart disease Dyslipidemia Cerebral aneurysm Alzheimer disease Bipolar disorder Clotting disorder Crohn's disease Dementia Heart disease Kidney disease Myocardial infarction Osteoarthritis Breast cancer Schizophrenia Congenital kidney disease Gestational diabetes Lung cancer COPD (chronic obstructive pulmonary disease) Colorectal cancer Pulmonary embolism Lung disease Cancer Ulcerative colitis Colonic polyp Stroke Asthma Cystic kidney disease Social History Smoking Status: Never smoker Second Hand Exposure: No; Do You Dip or Chew Tobacco: No; Hx Alcohol Use: No Hx Substance Use: No Preferred Language: Bur[place]ian Communication Ability: Effective Visual Impairment: No Limitations Hearing Ability: Normal Spring Fitter Helper Required: No Beliefs That Will Affect Care: None marital status: Current Living Situation: Spouse 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 Children do You have: 1 Feels Safe at Home: Yes Childhood Exposure to Second-Hand Smoke: No Diet: regular caffeine: Yes (iced tea) during the past year weight has: increased > 10 lbs Dental Care, Regularly: Yes Physical Activity Frequency: Does not Exercise Seatbelt Use: always Sunscreen Use: No Assistive Devices: CPAP and Glasses Review of Systems Review of Systems: All systems reviewed & are unremarkable except as noted in HPI & below Physical Exam Physical Exam: General: A&Ox3. NAD. Cooperative. HEENT: Atraumatic, normocephalic. Vision/hearing grossly intact Pulm: CTAB A&P. -wheezes, -rales, -rhonchi. Symmetrical chest rise. No increased work of breathing. No respiratory distress. Cardiac: RRR, -mrg. Radial pulses intact and symmetrical. Abdominal: Mild right CVA tenderness, otherwise nontender, nondistended, soft. BS present. Ext: warm, dry. moving all extremities equally. Results & Data Results & Data Vital Signs (Past 12 Hours) Vital Signs Temp Pulse Pulse Resp BP BP Pulse Ox 06/18/22 14:40 37.4 C 84 20 127/65 95 06/18/22 13:22 95 H 22 180/78 H 89 L 06/18/22 13:11 91 H 06/18/22 12:50 38.2 C H 103 H 20 158/88 H 94 O2 Del Method 06/18/22 14:40 Room Air 06/18/22 13:22 Room Air 06/18/22 13:11 06/18/22 12:50 Room Air PG Care Time/CCT Total # of Minutes Spent Total Time Spent with Patient: Total time spent is greater than 50% in coordination of care (as documented) at patient's floor/unit and/or counseling patient: Coding Level of Care Code 18441 INT INP/OBS CARE 3/75MIN Diagnoses Acute pyelonephritis N10 Sepsis A41.9 Degenerative joint disease (DJD) of hip M16.9 Hyperglycemia R73.9 Hyperlipidemia E78.5 Hypertension I10 Sleep apnea G47.30
[2022-06-18] MEDS ORDERED: GLUCAGON FOR INJ 1 MG VIAL SQ PRN (18:32)
[2022-06-18] MEDS ORDERED: POLYETHYLENE (MIRALAX) 17 GM PACK PO PRN (18:32)
[2022-06-18] MEDS ORDERED: CARBOHYDRATES FOR HYPOGLYCEMIA PO PRN (18:32)
[2022-06-18] MEDS ORDERED: GLUCOSE 10 TAB/TUBE PO PRN (18:32)
[2022-06-18] MEDS ORDERED: CYCLOBENZAPRINE HCL 10 MG TAB PO PRN (18:32)
[2022-06-18] MEDS ORDERED: GLUCOSE 40% GEL 15 GM TUBE PO PRN (18:32)
[2022-06-18] MEDS ORDERED: ONDANSETRON INJ 2 MG/ML 2 ML VIAL IV PRN (18:32)
[2022-06-18] MEDS ORDERED: DEXTROSE 50% 50 ML SYRINGE IV PRN (18:32)
[2022-06-18] MEDS ORDERED: hydrALAZINE HCL 20 MG/ML VIAL IV PRN (18:38)
[2022-06-18] MEDS: INSULIN ASPART PER UNIT CHARGE SC SCH ×2 (20:22→20:45)
[2022-06-18] MEDS: ACETAMINOPHEN 325 MG TAB PO PRN (20:30)
[2022-06-18] MEDS: MONTELUKAST SODIUM 10 MG TABLET PO SCH (20:31)
[2022-06-18] MEDS: CITALOPRAM 40 MG TAB PO SCH (20:32)
[2022-06-18] MEDS: DOCUSATE SODIUM 100 MG CAP PO SCH (20:32)
[2022-06-18] MEDS: CeleBREX 200 MG CAP PO SCH (20:33)
[2022-06-18] MEDS: ENOXAPARIN INJ 40 MG/0.4 ML SYR SQ SCH (20:33)
[2022-06-18] MEDS: LANTUS PER UNIT CHARGE SQ SCH (20:44)
[2022-06-19 05:01] LABS: A calco-baum cmplx NotReported Not Detected (NotDetected); Bact fragilis Not Reported Not Detected (NotDetected); C auris Not Reported Not Detected (NotDetected); CTX-M Resistant Gene Not Detected (NotDetected); Calbicans Not Reported Not Detected (NotDetected); Candida glabrata Not Reported Not Detected (NotDetected); Candida krusei Not Reported Not Detected (NotDetected); Cneoformans/gatti Not Reported Not Detected (NotDetected); Cparapsilosis Not Reported Not Detected (NotDetected); Ctropicalis Not Reported Not Detected (NotDetected); E cloacae compx Not Reported Not Detected (NotDetected); Efaecalis Not Reported Not Detected (NotDetected); Efaecium Not Reported Not Detected (NotDetected); Enterobacterales DETECTED (NotDetected); Enterobacterales Not Reported DETECTED (NotDetected); Escherichia coli Not Reported DETECTED (NotDetected); H influenzae Not Reported Not Detected (NotDetected); IMP Resistant Gene Not Detected (NotDetected); K aerogenes Not Reported Not Detected (NotDetected); KPC Resistant Gene Not Detected (NotDetected); Koxytoca Not Reported Not Detected (NotDetected); Kpneumoniae grp Not Reported Not Detected (NotDetected); Lmonocyt Not Reported Not Detected (NotDetected); N meningitidis Not Reported Not Detected (NotDetected); NDM Resistant Gene Not Detected (NotDetected); OXA 48 Like Resistant Gene Not Detected (NotDetected); P aeruginosa Not Reported Not Detected (NotDetected); Proteus spp Not Reported Not Detected (NotDetected); Salmonella spp Not Reported Not Detected (NotDetected); Smarcescens Not Reported Not Detected (NotDetected); Staph lugdunensis Not Reported Not Detected (NotDetected); Staph spp. Not Reported Not Detected (NotDetected); Staphaureus Not Reported Not Detected (NotDetected); Staphepi Not Reported Not Detected (NotDetected); Stenmaltophilia Not Reported Not Detected (NotDetected); Strep agal(GrpB) Not Reported Not Detected (NotDetected); Strep pneum Not Reported Not Detected (NotDetected); Strep pyog (GrpA) Not Reported Not Detected (NotDetected); Strep spp Not Reported Not Detected (NotDetected); VIM Resistant Gene Not Detected (NotDetected); mcr-1 Colistin Resistant Gene Not Detected (NotDetected)
--- NOTE | 2022-06-19 07:09 | Hospitalist Progress Note ---
Date of Service June 19, 2022 Assessment & Plan (1) Acute pyelonephritis: (2) Impaired fasting glucose: (3) Hypertension: (4) Anxiety: (5) Lumbar spinal stenosis: Admission and Anticipated Discharge Date Admission Date: June 18, 2022 Review of Systems Review of Systems: All systems reviewed & are unremarkable except as noted in HPI & below Results & Data Results & Data Vital Signs (Past 12 Hours) Vital Signs Temp Pulse Resp BP Pulse Ox O2 Del Method O2 Flow Rate 06/18/22 21:58 37.2 C 91 H 94 Nasal Cannula 2 06/18/22 20:50 Room Air 06/18/22 19:58 39.1 C H 106 H 16 126/65 93 Nasal Cannula 2
[2022-06-19 07:13] LABS: Basophils # (auto) 0.04 K/uL (0-0.2); Basophils % (auto) 0.3 %; Eosinophils # (auto) 0.03 K/uL (0-0.50); Eosinophils % (auto) 0.2 %; Hematocrit (blood only) 34.5 % (37.0-47.0); Immature Granulocytes % (auto) 0.8 %; Lymphocytes # (auto) 0.98 K/uL (1.2-3.4); Lymphocytes % (auto) 7.7 %; Mean Corpuscular Hemoglobin 29.7 pg (25.0-34.0); Mean Corpuscular Hgb Conc 31.9 g/dL (32.0-36.0); Mean Corpuscular Volume 93.2 fL (80.0-100.0); Mean Platelet Volume 11.1 fL (9.4-12.4); Monocytes # (auto) 1.43 K/uL (0.11-0.59); Monocytes % (auto) 11.2 %; Neutrophils # (auto) 10.17 K/uL (1.40-6.50); Neutrophils % (auto) 79.8 %; Platelet Count 104 K/uL (130-400); RDW Coefficient of Variation 13.6 % (11.5-14.5); RDW Standard Deviation 46.4 fL (36.4-46.3); White Blood Count 12.75 K/ul (4.8-10.8)
[2022-06-19 07:26] LABS: BUN Creatinine Ratio 19.7 (10-20); Calcium 9.2 mg/dl (8.6-10.3); Creatinine Clr Calc Pharmacy 52.1 ml/min; Est GFR (African American) 52.3 ml/min; Est GFR (Non-African American) 45.2 ml/min; Potassium 4.8 mmol/L (3.5-5.1)
[2022-06-19] MEDS: INSULIN ASPART PER UNIT CHARGE SC SCH ×4 (08:28→21:15)
[2022-06-19] MEDS: LANTUS PER UNIT CHARGE SQ SCH ×2 (08:29→21:15)
[2022-06-19] MEDS: ENOXAPARIN INJ 40 MG/0.4 ML SYR SQ SCH ×2 (08:34→21:15)
[2022-06-19] MEDS: CITALOPRAM 20 MG TAB PO SCH (08:35)
[2022-06-19] MEDS: DOCUSATE SODIUM 100 MG CAP PO SCH ×2 (08:35→21:16)
[2022-06-19] MEDS: ROSUVASTATIN CALCIUM 20 MG TAB PO SCH (08:36)
[2022-06-19] MEDS: LOSARTAN POTASSIUM 50 MG TAB PO SCH (08:36)
[2022-06-19] MEDS: CeleBREX 200 MG CAP PO SCH ×2 (08:36→21:33)
[2022-06-19] MEDS: ACETAMINOPHEN 325 MG TAB PO PRN ×3 (10:07→21:58)
--- NOTE | 2022-06-19 15:28 | Hospitalist Progress Note ---
Date of Service June 19, 2022 Assessment & Plan (1) Acute pyelonephritis: Plan: 67 F with PMH lumbar stenosis, ROSS, hyperlipidemia, hypertension, impaired fasting glucose, who presented with SOB, NB diarrhea, fever + shaking chills, sweats, and fatigue, found to have UCx positive for gram-negative bacilli and acute pyelonephritis of right kidney on CT A/P. Admitted for further management of gram-negative bacteremia with presumed urinary source. GNB bacteremia 2/2 acute right pyelonephritis -Discovered on CT A/P, positive urine culture (2/2 samples). Lactate of 2.7 on admission, procalcitonin 1.03. Lactate normalized post fluids. -WBC 11.99 on admission. No laboratory evidence of MIGEL. -S/p ceftriaxone 2 g, 1.5 L IV NSS bolus in the ED. Pain well controlled on Tylenol 1000 mg p.o. -Now off fluids, tolerating p.o. nutrition well. Consider sepsis resolved at this time. * Continue IV ceftriaxone 2 g daily x10 days. Transition to p.o. once clinically improved. * Pain control with Tylenol 1000 mg p.o. every 8 hours as needed * Await urine culture speciation, sensitivities. * Trend CBC Impaired fasting glucose/prediabetes -Chronic; managed at home on metformin 500 mg twice daily. -Metformin held on admission. -Hemoglobin A1c of 6.5% from last month. * Basal/bolus insulin ordered on admission: Lantus 10 units SQ twice daily + SSI coverage * BSG checks ACHS Hyperlipidemia -Chronic; managed at home on rosuvastatin 40 mg daily. * Continue home regimen Hypertension -Chronic; managed at home on losartan 50 mg daily. * Continue home regimen Anxiety/depression -Chronic; managed at home on citalopram * Continue home citalopram 20 mg every morning, 40 mg every afternoon DJD of the hip -Chronic; managed at home on celecoxib 200 mg twice daily, cyclobenzaprine 10 mg p.o. 3 times daily as needed * Continue home regimen. Code: Full code Dispo: Med-Surg FEN/GI: Carb consistent DVT Prophylaxis: Lovenox 40 mg q12h PT/OT: No Consults: None Case Management: No (2) Sepsis: (3) Impaired fasting glucose: (4) Hypertension: (5) Hyperlipidemia: (6) Anxiety: (7) Lumbar spinal stenosis: Admission and Anticipated Discharge Date Admission Date: June 18, 2022 Supervising Physician Co-Signing Physician Notes Attending attestation Pt seen and examined in concert with Dr. Cordon. In agreement with the documented findings as noted in the resident documentation with any exceptions or additions as noted here. Bilateral but improving flank pain without further urinary symptom nor fever, lightheadedness, palpitations. On examination, S1/S2 nl RRR no MCG. CTAB. Abd ND BS+ve, bilateral flank tenderness with gentle bellotment, worse on the left. Acute right pyelonephritis with gram negative bacteremia - continue ceftriaxone and follow up sensitivities for guidance for transition of abx. Likely 10 day course. Trend CBC. Diabetes type 2, controlled in the setting of morbid obesity with BMI 49.1 - continue basal bolus as noted. likely to resume metformin on discharge. Else see resident documentation as noted. Subjective Resting comfortably in bed on arrival this morning. Denies headache, fever, chills, nausea. Tolerated breakfast well. Back pain significantly improved. She thinks this may have been her infection along. Review of Systems Review of Systems: All systems reviewed & are unremarkable except as noted in HPI & below Physical Exam Physical Exam: General: No acute distress HEENT: PERRLA. Normal conjunctiva, anicteric sclera. Oropharynx normal. Respiratory: Normal respiratory effort, CTABL. Cardiovascular: RRR without murmurs, gallops, or rubs. No pedal edema. GI: Soft abdomen with normal bowel sounds heard on auscultation. Right-sided flank, CVA tenderness to moderate palpation. No abdominal TTP x4 quadrants. Neuro: Alert and oriented x3. Results & Data Results & Data Vital Signs (Past 12 Hours) Vital Signs Temp Pulse Resp BP Pulse Ox O2 Del Method 06/19/22 07:21 36.6 C 72 18 136/68 99 Room Air Resident Activity Tracking Resident Involvement: Resident Care Provided Care Provided: Adult Hospital Medicine
[2022-06-19] MEDS: cefTRIAXone SODIUM 2,000 MG in DEXTROSE 5% 50 ML IV SCH (16:46)
--- NOTE | 2022-06-19 17:10 | Electrocardiogram Report ---
Test Reason : Blood Pressure : / mmHG Vent. Rate : 097 BPM Atrial Rate : 097 BPM P-R Int : 154 ms QRS Dur : 084 ms QT Int : 334 ms P-R-T Axes : 043 040 083 degrees QTc Int : 424 ms Normal sinus rhythm Normal ECG When compared with ECG of 22-JUL-2018 09:28, Vent. rate has increased BY [address] no longer elevated in Inferior leads Nonspecific T wave abnormality now evident in Lateral leads Confirmed by Clement Cummings ([id number]) on 06/19/2022 5:10:34 PM Referred By: REFERRED SELF Confirmed By:Bertin Cummings
[2022-06-19] MEDS: MONTELUKAST SODIUM 10 MG TABLET PO SCH (21:16)
[2022-06-19] MEDS: CITALOPRAM 40 MG TAB PO SCH (21:33)
[2022-06-20] MEDS: ENOXAPARIN INJ 40 MG/0.4 ML SYR SQ SCH ×2 (07:25→20:44)
--- NOTE | 2022-06-20 08:29 | Hospitalist Progress Note ---
Date of Service June 20, 2022 Assessment & Plan (1) Acute pyelonephritis: Plan: 67 F with PMH lumbar stenosis, ROSS, hyperlipidemia, hypertension, impaired fasting glucose, who presented with SOB, NB diarrhea, fever + shaking chills, sweats, and fatigue, found to have UCx positive for gram-negative bacilli and acute pyelonephritis of right kidney on CT A/P. Admitted for further management of gram-negative bacteremia with presumed urinary source. GNB bacteremia 2/2 acute right pyelonephritis -Discovered on CT A/P, positive urine culture (2/2 samples). Lactate of 2.7 on admission, procalcitonin 1.03. Lactate normalized post fluids. -WBC 11.99 on admission. No laboratory evidence of MIGEL. -S/p ceftriaxone 2 g, 1.5 L IV NSS bolus in the ED. Pain well controlled on Tylenol 1000 mg p.o. -Now off fluids, tolerating p.o. nutrition well. Consider sepsis resolved at this time. * Continue IV ceftriaxone 2 g daily x10 days. Transition to p.o. once clinically improved. * Pain control with Tylenol 1000 mg p.o. every 8 hours as needed * Await urine culture speciation, sensitivities. * Trend CBC Impaired fasting glucose/prediabetes -Chronic; managed at home on metformin 500 mg twice daily. -Metformin held on admission. -Hemoglobin A1c of 6.5% from last month. * Basal/bolus insulin ordered on admission: Lantus 10 units SQ twice daily + SSI coverage * BSG checks ACHS Hyperlipidemia -Chronic; managed at home on rosuvastatin 40 mg daily. * Continue home regimen Hypertension -Chronic; managed at home on losartan 50 mg daily. * Continue home regimen Anxiety/depression -Chronic; managed at home on citalopram * Continue home citalopram 20 mg every morning, 40 mg every afternoon DJD of the hip -Chronic; managed at home on celecoxib 200 mg twice daily, cyclobenzaprine 10 mg p.o. 3 times daily as needed * Continue home regimen. Code: Full code Dispo: Med-Surg FEN/GI: Carb consistent DVT Prophylaxis: Lovenox 40 mg q12h PT/OT: No Consults: None Case Management: No (2) Sepsis: (3) Impaired fasting glucose: (4) Hypertension: (5) Hyperlipidemia: (6) Anxiety: (7) Lumbar spinal stenosis: Admission and Anticipated Discharge Date Admission Date: June 18, 2022 Review of Systems Review of Systems: All systems reviewed & are unremarkable except as noted in HPI & below Results & Data Results & Data Vital Signs (Past 12 Hours) Vital Signs Temp Pulse Resp BP Pulse Ox O2 Del Method 06/20/22 07:14 37.3 C 87 18 149/75 H 92 Room Air 06/19/22 21:51 37.9 C H 86 18 141/71 H 95 Room Air 06/19/22 21:34 Room Air
[2022-06-20 08:39] LABS: Hematocrit (blood only) 34.1 % (37.0-47.0); Hemoglobin 11.3 g/dl (12.0-16.0); Mean Corpuscular Hemoglobin 30.2 pg (25.0-34.0); Mean Corpuscular Hgb Conc 33.1 g/dL (32.0-36.0); Mean Corpuscular Volume 91.2 fL (80.0-100.0); Mean Platelet Volume 11.2 fL (9.4-12.4); Platelet Count 103 K/uL (130-400); RDW Coefficient of Variation 13.6 % (11.5-14.5); RDW Standard Deviation 45.9 fL (36.4-46.3); Red Blood Count 3.74 M/uL (4.20-5.40); White Blood Count 8.78 K/ul (4.8-10.8)
[2022-06-20] MEDS: LANTUS PER UNIT CHARGE SQ SCH ×2 (08:47→20:43)
[2022-06-20] MEDS: INSULIN ASPART PER UNIT CHARGE SC SCH ×4 (08:47→20:43)
[2022-06-20] MEDS: DOCUSATE SODIUM 100 MG CAP PO SCH ×2 (08:52→20:46)
[2022-06-20] MEDS: CeleBREX 200 MG CAP PO SCH ×2 (08:52→20:45)
[2022-06-20] MEDS: LOSARTAN POTASSIUM 50 MG TAB PO SCH (08:52)
[2022-06-20] MEDS: ROSUVASTATIN CALCIUM 20 MG TAB PO SCH (08:52)
[2022-06-20] MEDS: CITALOPRAM 20 MG TAB PO SCH (08:52)
[2022-06-20 08:59] LABS: BUN Creatinine Ratio 24.2 (10-20); Calcium 9.2 mg/dl (8.6-10.3); Creatinine Clr Calc Pharmacy 66.9 ml/min; Est GFR (African American) 70.8 ml/min; Est GFR (Non-African American) 61.1 ml/min; Magnesium 1.9 mg/dl (1.7-2.4); Phosphorus 2.6 mg/dl (2.5-4.9); Potassium 4.2 mmol/L (3.5-5.1)
--- NOTE | 2022-06-20 15:41 | Hospitalist Progress Note ---
Date of Service June 20, 2022 Assessment & Plan (1) Acute pyelonephritis: Plan: 67 F with PMH lumbar stenosis, ROSS, hyperlipidemia, hypertension, impaired fasting glucose, who presented with SOB, NB diarrhea, fever + shaking chills, sweats, and fatigue, found to have blood positive for gram-negative bacilli, urine culture positive for E. coli, and acute pyelonephritis of right kidney on CT A/P. GNB bacteremia 2/2 acute right pyelonephritis -Discovered on CT A/P, positive urine culture (2/2 samples). Lactate of 2.7 on admission, procalcitonin 1.03. Lactate normalized post fluids. -WBC 11.99 on admission, now downtrending. No laboratory evidence of MIGEL. -Now off fluids, tolerating p.o. nutrition well. * Continue IV ceftriaxone 2 g daily x10 days. Transition to p.o. ciprofloxacin 300mg once clinically improved. * Pain control with Tylenol 1000 mg p.o. every 8 hours as needed * Urine culture grew cabrera-sensitive E. coli. * Awaiting blood culture and sensitivities. * Add 10mg Pepsid pid for nausea * Trend CBC and temperatures Impaired fasting glucose/diabetes -Chronic; metformin prescribed by PCP prior to admission and had not yet started, will start after discharge -Metformin held on admission. -Hemoglobin A1c of 6.5% from last month. * Basal/bolus insulin ordered on admission: Lantus 10 units SQ twice daily + SSI coverage * BSG checks ACHS Hyperlipidemia -Chronic; managed at home on rosuvastatin 40 mg daily. * Continue home regimen Hypertension -Chronic; managed at home on losartan 50 mg daily. * Continue home regimen Anxiety/depression -Chronic; managed at home on citalopram * Continue home citalopram 20 mg every morning, 40 mg every afternoon DJD of the hip -Chronic; managed at home on celecoxib 200 mg twice daily, cyclobenzaprine 10 mg p.o. 3 times daily as needed * Continue home regimen. Code: Full code Dispo: Med-Surg FEN/GI: Carb consistent DVT Prophylaxis: Lovenox 40 mg q12h PT/OT: No Consults: None Case Management: No (2) Sepsis: (3) Impaired fasting glucose: (4) Hypertension: (5) Hyperlipidemia: (6) Anxiety: (7) Lumbar spinal stenosis: Admission and Anticipated Discharge Date Admission Date: June 18, 2022 Supervising Physician Co-Signing Physician Notes Attending attestation Pt seen and examined in concert with St. Dr. Leander Chacon. In agreement with the documented findings as noted in the resident documentation with any exceptions or additions as noted here. Ongoing improving bilateral flank pain. Episode of nausea in the AM which patient feels is related to decreased POI overnight which has gradually improved through the day. On examination, S1/S2 nl RRR no MCG. CTAB. Abd ND BS+ve, bilateral flank tenderness with gentle bellotment, worse on the left. Acute right pyelonephritis with gram negative bacteremia - continue ceftriaxone, to transition to likely FQ in AM with BCx sensitivities to complete 10 day course. Trend CBC. Diabetes type 2, controlled in the setting of morbid obesity with BMI 49.1 - continue basal bolus as noted. likely to resume metformin on discharge. Else see resident documentation as noted. Subjective She is feeling better today than she was yesterday. She does not have any flank tenderness this AM. She did state that she did not have dinner last night because she did not feel up to eating, and this morning she felt nauseous. Nurse gave her Zofran an hour ago and it has not helped. The nausea resolved after she ate breakfast, and she was able to eat lunch without difficulty. She has not needed another dose of Zofran. Her O2 sats were 92-95 last night into this morning. Per nursing she had lower sats when admitted and was put on NC. She transitioned to room air yesterday. She does not have shortness of breath or dyspnea. Review of Systems Respiratory: No shortness of breath or dyspnea Cardiovascular: Additional Comments: No chest pain, pressure, or palpitations Gastrointestinal: No constipation or diarrhea Genitourinary: No dysuria Neurologic: No numbness or tingling Physical Exam Physical Exam: General: A&Ox3. NAD. Cooperative HEENT: PERRLA. Atraumatic, normocephalic Respiratory: CTAB, no wheezes, rales, or rhonchi. Symmetrical chest rise. No increased work of breathing or respiratory distress. Cardiovascular: RRR without murmurs, rubs, or gallops. Abdominal: No CVA or flank tenderness. Neuro: Alert and oriented x3. Results & Data Results & Data Vital Signs (Past 12 Hours) Vital Signs Temp Pulse Resp BP Pulse Ox O2 Del Method 06/20/22 07:14 37.3 C 87 18 149/75 H 92 Room Air CBC w Diff Results Results CBC w Diff Results: RBC 3.74 M/uL (4.20-5.40) L 06/20/22 WBC 8.78 K/ul (4.8-10.8) 06/20/22 Hgb 11.3 g/dl (12.0-16.0) L 06/20/22 Hct 34.1 % (37.0-47.0) L 06/20/22 MCV 91.2 fL (80.0-100.0) 06/20/22 MCH 30.2 pg (25.0-34.0) 06/20/22 MCHC 33.1 g/dL (32.0-36.0) 06/20/22 RDW Standard Deviation 45.9 fL (36.4-46.3) 06/20/22 RDW Coefficient of Variation 13.6 % (11.5-14.5) 06/20/22 Plt Count 103 K/uL (130-400) L 06/20/22 MPV 11.2 fL (9.4-12.4) 06/20/22 Neutrophils (%) (Auto) 79.8 % 06/19/22 Lymphocytes (%) (Auto) 7.7 % 06/19/22 Monocytes # (Auto) 1.43 K/uL (0.11-0.59) H 06/19/22 Eosinophils # (Auto) 0.03 K/uL (0-0.50) 06/19/22 Immature Granulocyte % (Auto) 0.8 % 06/19/22 Neutrophils # (Auto) 10.17 K/uL (1.40-6.50) H 06/19/22 Lymphocytes # (Auto) 0.98 K/uL (1.2-3.4) L 06/19/22 Monocytes # (Auto) 1.43 K/uL (0.11-0.59) H 06/19/22 Eosinophils # (Auto) 0.03 K/uL (0-0.50) 06/19/22 Basophils # (Auto) 0.04 K/uL (0-0.2) 06/19/22 Immature Granulocyte # (Auto) 0.10 K/uL (0.01-0.20) 3
[2022-06-20] MEDS: cefTRIAXone SODIUM 2,000 MG in DEXTROSE 5% 50 ML IV SCH (16:32)
[2022-06-20] MEDS: ACETAMINOPHEN 325 MG TAB PO PRN (20:43)
[2022-06-20] MEDS: CITALOPRAM 40 MG TAB PO SCH (20:45)
[2022-06-20] MEDS: FAMOTIDINE 10 MG TABLET PO SCH (20:46)
[2022-06-20] MEDS: MONTELUKAST SODIUM 10 MG TABLET PO SCH (20:46)
[2022-06-21] MEDS: LOSARTAN POTASSIUM 50 MG TAB PO SCH (08:47)
[2022-06-21] MEDS: ROSUVASTATIN CALCIUM 20 MG TAB PO SCH (08:48)
[2022-06-21] MEDS: CeleBREX 200 MG CAP PO SCH (08:48)
[2022-06-21] MEDS: ENOXAPARIN INJ 40 MG/0.4 ML SYR SQ SCH (08:48)
[2022-06-21] MEDS: DOCUSATE SODIUM 100 MG CAP PO SCH (08:48)
[2022-06-21] MEDS: INSULIN ASPART PER UNIT CHARGE SC SCH ×2 (08:50→12:45)
[2022-06-21] MEDS: CITALOPRAM 20 MG TAB PO SCH (08:52)
[2022-06-21] MEDS: FAMOTIDINE 10 MG TABLET PO SCH (08:54)
[2022-06-21] MEDS: LANTUS PER UNIT CHARGE SQ SCH (08:58)
[2022-06-21] MEDS ORDERED: CEFDINIR 300 MG CAP PO SCH (09:00)
[2022-06-21 09:13] LABS: Hematocrit (blood only) 34.5 % (37.0-47.0); Hemoglobin 11.3 g/dl (12.0-16.0); Mean Corpuscular Hgb Conc 32.8 g/dL (32.0-36.0); Mean Corpuscular Volume 91.5 fL (80.0-100.0); Mean Platelet Volume 11.5 fL (9.4-12.4); Platelet Count 106 K/uL (130-400); RDW Coefficient of Variation 13.7 % (11.5-14.5); RDW Standard Deviation 46.4 fL (36.4-46.3); Red Blood Count 3.77 M/uL (4.20-5.40); White Blood Count 8.68 K/ul (4.8-10.8)
[2022-06-21 09:33] LABS: BUN Creatinine Ratio 26.1 (10-20); Calcium 9.5 mg/dl (8.6-10.3); Creatinine Clr Calc Pharmacy 72.3 ml/min; Est GFR (African American) 77.7 ml/min; Phosphorus 3.5 mg/dl (2.5-4.9); Potassium 4.2 mmol/L (3.5-5.1)
[2022-06-21] MEDS ORDERED: AMOXICILLIN/CLAVULANATE 875 MG TAB PO SCH (12:00)
--- NOTE | 2022-06-21 15:00 | Discharge Summary ---
Date of Service June 21, 2022 Admission HPI Per Admitting Provider Reshma is a 67-year-old female with a past medical history of lumbar stenosis, ROSS, hyperlipidemia, impaired fasting glucose, hypertension, and arthritis who presented with shortness of breath, nonbloody diarrhea, shaking chills/sweats and fatigue. She is found to have significantly elevated procalcitonin and inflammatory change of the right kidney concerning for urosepsis/pyelonephritis for which she has been recommended for admission 1 day of symptoms shakes, severe chills, fevers no dysuria, signiicantly increased urinary frequency and urgency No chest pressure or chest pain Had some shortness of breath when she came, this has resolved with fluids and abx No hx of ID/CAD/Heart failure. No hx of kidney disease. No hx lung disease. Hx of borderline DM. Has not yet started metformin, has been borderline for many years last A1C 6.5% Took no medicaitons this AM Hx lumbar stenosis and arthritis. Has been at baseline, pain improves with lidocaine patch. No numbness/tingling in legs, no recent weakness. + Mild R flank pain 6/10 but toleration/ Medical History: Reviewed Medications: Reviewed Surgical History: Reviewed Family history: Reviewed Allergies: Reviewed Social History: No tobacco product use or alcohol use Code Status: Full Admission Exam Per Admitting Provider General: A&Ox3. NAD. Cooperative. HEENT: Atraumatic, normocephalic. Vision/hearing grossly intact Pulm: CTAB A&P. -wheezes, -rales, -rhonchi. Symmetrical chest rise. No increased work of breathing. No respiratory distress. Cardiac: RRR, -mrg. Radial pulses intact and symmetrical. Abdominal: Mild right CVA tenderness, otherwise nontender, nondistended, soft. BS present. Ext: warm, dry. moving all extremities equally. Principal Diagnosis Acute pyelonephritis + gram-negative bacteremia Discharge Exam General: No acute distress HEENT: PERRLA. Normal conjunctiva, anicteric sclera. Oropharynx normal. Respiratory: Normal respiratory effort, CTABL. Cardiovascular: RRR without murmurs, gallops, or rubs. No pedal edema. GI: Soft abdomen with normal bowel sounds heard on auscultation. Nontender x4 quadrants Neuro: Alert and oriented x3. Discharge Data Allergies Allergy/AdvReac Type Severity Reaction Status Date / Time Sulfa (Sulfonamide Allergy Intermediate Hives Verified 06/18/22 15:15 Antibiotics) Consultations 06/18/22 15:53 ED Decision to Admit Stat Ordered Studies 06/18/22 13:02 CT abd pelvis IV con only Stat CT angio chest PE protocol Stat Total Time Total Time Spent Total Time Spent (In Minutes): Please see attending attestation. Discharge Plan Discharge Items Patient Disposition: Home - Self-Care Reason For Visit: PYELONEPHRITIS Discharge Diagnosis: Acute pyelonephritis Activity: Per Instructions section Non-emergency contact: Primary Care Provider Call non-emergency contact if: you have any medication questions, your symptoms worsen and your temperature is above 101 Follow-up/Referrals: Danisha Gage CRNP [Primary Care Provider] - Diet: Regular Addtl Attending Provider Instructions: Deakasia Justice, You came to the hospital because of worsening back pain and fevers and chills. You were evaluated and found to have an inflammation of your upper urinary tract, a condition known as pyelonephritis. You received IV fluids, as well as IV antibiotics until your symptoms improved. Now that they have, we feel you are ready to be discharged home to complete the remainder of your course. 1. We are sending a medication called amoxicillin/clavulanate, or Augmentin to your pharmacy. Take Augmentin 875/125 mg twice daily for 7 days. Do not stop taking even after your symptoms resolve. 2. Please follow-up with your outpatient PCP within 2 weeks of your hospital discharge. If you are unable to schedule an appointment, or need a new PCP, you may contact the hospital at [phone] and ask to be put in touch with the matchbook maker. 3. If your fever persists while you are at home, or your symptoms worsen over the next 10 days, contact your PCP, or if unable to, head to the emergency room. It has been a pleasure to care for you here at [facility]. If you have any questions or concerns about your care, you may reach us at [phone]. Pending Studies at Discharge: No Stand-Alone Forms: My [facility] [employer], Smoking Cessation Medications and DC Order Prescriptions: New amoxicillin-pot clavulanate 875-125 mg tablet 1 tab PO BID 7 Days Qty: 14 0RF Continued losartan 50 mg tablet 50 mg PO QAM Qty: 90 3RF montelukast 10 mg tablet 10 mg PO PM Qty: 90 3RF citalopram 40 mg tablet 40 mg PO QPM Qty: 90 3RF citalopram 20 mg tablet 20 mg PO QAM Qty: 90 3RF celecoxib 200 mg capsule 200 mg PO BID Qty: 180 3RF cyclobenzaprine 10 mg tablet 10 mg PO TID PRN (Reason: muscle spasm) Qty: 90 1RF metformin 500 mg tablet 500 mg PO BID Qty: 180 3RF rosuvastatin 40 mg tablet 40 mg PO DAILY Qty: 90 3RF docusate sodium [Stool Softener] 100 mg capsule 100 mg PO BID prevagen 1 dose PO DAILY polyethylene glycol 3350 [ClearLax] 17 gram/dose powder 17 g PO DAILY PRN (Reason: Constipation) cholecalciferol (vitamin D3) 2,000 unit Tablet 2,000 unit PO QAM Discharge Orders: Discharge Order (Routine); Ordered 06/21/22 Ordered By: Edna Cordon Admission Data Admit Date/Time: 06/18/22 16:14 Attending Provider: Adolfo Sanches Admit Provider: Avinash Kelly Primary Care Provider: Danisha Gage Other Providers: Avinash Kelly
--- NOTE | 2022-06-21 15:10 | Hospitalist Progress Note ---
Date of Service June 19, 2022 Assessment & Plan (1) Acute pyelonephritis: Plan: 67 F with PMH lumbar stenosis, ROSS, hyperlipidemia, hypertension, impaired fasting glucose, who presented with SOB, NB diarrhea, fever + shaking chills, sweats, and fatigue, found to have blood positive for gram-negative bacilli, urine culture positive for E. coli, and acute pyelonephritis of right kidney on CT A/P. GNB bacteremia 2/2 acute right pyelonephritis -Discovered on CT A/P, positive urine culture (2/2 samples). Lactate of 2.7 on admission, procalcitonin 1.03. Lactate normalized post fluids. -WBC 11.99 on admission, now downtrending. No laboratory evidence of MIGEL. -Now off fluids, tolerating p.o. nutrition well. * Continue IV ceftriaxone 2 g daily x10 days. Transition to p.o. once clinically improved. * Pain control with Tylenol 1000 mg p.o. every 8 hours as needed * Urine culture pending * Awaiting blood culture and sensitivities. * Add 10mg Pepcid bid for nausea * Trend CBC and temperatures Impaired fasting glucose/diabetes -Chronic; metformin prescribed by PCP prior to admission and had not yet started, will start after discharge -Metformin held on admission. -Hemoglobin A1c of 6.5% from last month. * Basal/bolus insulin ordered on admission: Lantus 10 units SQ twice daily + SSI coverage * BSG checks ACHS * Recommend initiating metformin 500 mg at discharge or outpatient PCP follow- up. Hyperlipidemia -Chronic; managed at home on rosuvastatin 40 mg daily. * Continue home regimen Hypertension -Chronic; managed at home on losartan 50 mg daily. * Continue home regimen Anxiety/depression -Chronic; managed at home on citalopram * Continue home citalopram 20 mg every morning, 40 mg every afternoon DJD of the hip -Chronic; managed at home on celecoxib 200 mg twice daily, cyclobenzaprine 10 mg p.o. 3 times daily as needed * Continue home regimen. Code:Full code Dispo:Med-Surg FEN/GI:Carb consistent DVT Prophylaxis:Lovenox 40 mg q12h PT/OT:No Consults:None Case Management:No (2) Sepsis: (3) Impaired fasting glucose: (4) Hypertension: (5) Hyperlipidemia: (6) Anxiety: (7) Lumbar spinal stenosis: Admission and Anticipated Discharge Date Admission Date: June 18, 2022 Supervising Physician Co-Signing Physician Notes Attending attestation Pt seen and examined in concert with Dr. Cordon. In agreement with the documented findings as noted in the resident documentation with any exceptions or additions as noted here. Bilateral flank pain, tolerating therapy.. On examination, S1/S2 nl RRR no MCG. CTAB. Abd ND BS+ve, bilateral flank tenderness with gentle bellotment, worse on the left. Acute right pyelonephritis with gram negative bacteremia - continue ceftriaxone pending culture/sensitivity. Trend CBC. Diabetes type 2, controlled in the setting of morbid obesity with BMI 49.1 - continue basal bolus as noted. likely to resume metformin on discharge. Else see resident documentation as noted. This documentation is to replace an accidentally deleted note from 06/19/22 Subjective Overnight, patient had fever. This morning, she reports significant improvement in her back pain. As she has chronic history of back pain, she initially thought this was her back, but now that her pain is improved, she believes that this was her back all along. Pain has been adequately controlled on Tylenol 650 mg. Review of Systems Review of Systems: All systems reviewed & are unremarkable except as noted in HPI & below Physical Exam Physical Exam: General: No acute distress HEENT: PERRLA. Normal conjunctiva, anicteric sclera. Oropharynx normal. Respiratory: Normal respiratory effort, CTABL. Cardiovascular: RRR without murmurs, gallops, or rubs. No pedal edema. GI: Soft abdomen with normal bowel sounds heard on auscultation. Right-sided flank tenderness to mild to moderate palpation. Neuro: Alert and oriented x3. Results & Data Results & Data Vital Signs (Past 12 Hours) Vital Signs Temp Pulse Resp BP Pulse Ox O2 Del Method 06/21/22 07:50 Room Air 06/21/22 07:40 36.8 C 75 16 132/74 95 Room Air 06/21/22 06:11 36.7 C 81 16 125/79 93 Room Air
--- NOTE | 2022-06-21 15:16 | Discharge Summary ---
Date of Service June 21, 2022 Admission HPI Per Admitting Provider Reshma is a 67-year-old female with a past medical history of lumbar stenosis, ROSS, hyperlipidemia, impaired fasting glucose, hypertension, and arthritis who presented with shortness of breath, nonbloody diarrhea, shaking chills/sweats and fatigue. She is found to have significantly elevated procalcitonin and inflammatory change of the right kidney concerning for urosepsis/pyelonephritis for which she has been recommended for admission 1 day of symptoms shakes, severe chills, fevers no dysuria, signiicantly increased urinary frequency and urgency No chest pressure or chest pain Had some shortness of breath when she came, this has resolved with fluids and abx No hx of VA/CAD/Heart failure. No hx of kidney disease. No hx lung disease. Hx of borderline DM. Has not yet started metformin, has been borderline for many years last A1C 6.5% Took no medicaitons this AM Hx lumbar stenosis and arthritis. Has been at baseline, pain improves with lidocaine patch. No numbness/tingling in legs, no recent weakness. + Mild R flank pain 6/10 but toleration/ Medical History: Reviewed Medications: Reviewed Surgical History: Reviewed Family history: Reviewed Allergies: Reviewed Social History: No tobacco product use or alcohol use Code Status: Full Admission Exam Per Admitting Provider General: A&Ox3. NAD. Cooperative. HEENT: Atraumatic, normocephalic. Vision/hearing grossly intact Pulm: CTAB A&P. -wheezes, -rales, -rhonchi. Symmetrical chest rise. No increased work of breathing. No respiratory distress. Cardiac: RRR, -mrg. Radial pulses intact and symmetrical. Abdominal: Mild right CVA tenderness, otherwise nontender, nondistended, soft. BS present. Ext: warm, dry. moving all extremities equally. Principal Diagnosis Acute pyelonephritis + gram-negative bacteremia (E. coli) Discharge Exam General: No acute distress HEENT: PERRLA. Normal conjunctiva, anicteric sclera. Oropharynx normal. Respiratory: Normal respiratory effort, CTABL. Cardiovascular: RRR without murmurs, gallops, or rubs. No pedal edema. GI: Soft abdomen with normal bowel sounds heard on auscultation. Nontender x4 quadrants Neuro: Alert and oriented x3. Discharge Data Allergies Allergy/AdvReac Type Severity Reaction Status Date / Time Sulfa (Sulfonamide Allergy Intermediate Hives Verified 06/18/22 15:15 Antibiotics) Consultations 06/18/22 15:53 ED Decision to Admit Stat Ordered Studies 06/18/22 13:02 CT abd pelvis IV con only Stat CT angio chest PE protocol Stat Hospital Course (1) Acute pyelonephritis: 67 F with PMH lumbar stenosis, ROSS, hyperlipidemia, hypertension, impaired fasting glucose, who presented with SOB, NB diarrhea, fever + shaking chills, sweats, and fatigue, found to have blood positive for gram-negative bacilli, urine culture positive for E. coli, and acute pyelonephritis of right kidney on CT A/P. GNB bacteremia 2/2 acute right pyelonephritis -Discovered on CT A/P, positive urine culture (2/2 samples). Lactate of 2.7 on admission, procalcitonin 1.03. Lactate normalized post fluids. -WBC 11.99 on admission, now downtrending. No laboratory evidence of MIGEL. -Now off fluids, tolerating p.o. nutrition well. * Started IV ceftriaxone 2 g daily x 3 days. Transition to p.o. Augmentin 875 mg - 125 mg twice daily x7 days (10 days total antibiotics course) once clinically improved. * Pain control with Tylenol 1000 mg p.o. every 8 hours as needed. * Urine culture positive for E. coli (pansensitive). * Blood cultures: No growth to date. * Pepcid 10 mg twice daily as needed for nausea Impaired fasting glucose/diabetes -Chronic; metformin prescribed by PCP prior to admission and had not yet started, will start after discharge -Metformin held on admission. -Hemoglobin A1c of 6.5% from last month. * Basal/bolus insulin ordered on admission: Lantus 10 units SQ twice daily + SSI coverage * BSG checks ACHS * Recommend initiation of metformin 500 mg at discharge or outpatient PCP follow-up. Hyperlipidemia -Chronic; managed at home on rosuvastatin 40 mg daily. * Continue home regimen Hypertension -Chronic; managed at home on losartan 50 mg daily. * Continue home regimen Anxiety/depression -Chronic; managed at home on citalopram * Continue home citalopram 20 mg every morning, 40 mg every afternoon DJD of the hip -Chronic; managed at home on celecoxib 200 mg twice daily, cyclobenzaprine 10 mg p.o. 3 times daily as needed * Continue home regimen. (2) Sepsis: (3) Impaired fasting glucose: (4) Hypertension: (5) Hyperlipidemia: (6) Anxiety: (7) Lumbar spinal stenosis: Total Time Total Time Spent Total Time Spent (In Minutes): Please see attending attestation. Discharge Plan Discharge Items Patient Disposition: Home - Self-Care Reason For Visit: PYELONEPHRITIS Discharge Diagnosis: Acute pyelonephritis Activity: Per Instructions section Non-emergency contact: Primary Care Provider Call non-emergency contact if: you have any medication questions, your symptoms worsen and your temperature is above 101 Follow-up/Referrals: Danisha Gage CRNP [Primary Care Provider] - 06/28/22 2:00 pm Diet: Regular Addtl Attending Provider Instructions: Dear Reshma, You came to the hospital because of worsening back pain and fevers and chills. You were evaluated and found to have an inflammation of your upper urinary tract, a condition known as pyelonephritis. You received IV fluids, as well as IV antibiotics until your symptoms improved. Now that they have, we feel you are ready to be discharged home to complete the remainder of your course. 1. We are sending a medication called amoxicillin/clavulanate, or Augmentin to your pharmacy. Take Augmentin 875/125 mg twice daily for 7 days. Do not stop taking even after your symptoms resolve. 2. Please follow-up with your outpatient PCP within 2 weeks of your hospital discharge. If you are unable to schedule an appointment, or need a new PCP, you may contact the hospital at [phone] and ask to be put in touch with the master scheduler. 3. If your fever persists while you are at home, or your symptoms worsen over the next 10 days, contact your PCP, or if unable to, head to the emergency room. It has been a pleasure to care for you here at [facility]. If you have any questions or concerns about your care, you may reach us at [phone]. Pending Studies at Discharge: No Stand-Alone Forms: My [facility] [employer], Smoking Cessation Medications and DC Order Prescriptions: New amoxicillin-pot clavulanate 875-125 mg tablet 1 tab PO BID 7 Days Qty: 14 0RF Continued losartan 50 mg tablet 50 mg PO QAM Qty: 90 3RF montelukast 10 mg tablet 10 mg PO PM Qty: 90 3RF citalopram 40 mg tablet 40 mg PO QPM Qty: 90 3RF citalopram 20 mg tablet 20 mg PO QAM Qty: 90 3RF celecoxib 200 mg capsule 200 mg PO BID Qty: 180 3RF cyclobenzaprine 10 mg tablet 10 mg PO TID PRN (Reason: muscle spasm) Qty: 90 1RF metformin 500 mg tablet 500 mg PO BID Qty: 180 3RF rosuvastatin 40 mg tablet 40 mg PO DAILY Qty: 90 3RF docusate sodium [Stool Softener] 100 mg capsule 100 mg PO BID prevagen 1 dose PO DAILY polyethylene glycol 3350 [ClearLax] 17 gram/dose powder 17 g PO DAILY PRN (Reason: Constipation) cholecalciferol (vitamin D3) 2,000 unit Tablet 2,000 unit PO QAM Discharge Orders: Discharge Order (Routine); Ordered 06/21/22 Ordered By: Edna Gonzalez/Other Patient Handouts: ED Pyelonephritis, Female (Adult) Admission Data Admit Date/Time: 06/18/22 16:14 Attending Provider: Adolfo Sanches Admit Provider: Avinash Kelly Primary Care Provider: Danisha Gage Other Providers: Avinash Kelly Other Interventions: Discharge Summary Assessment (RN) Last Done: 06/21/22 15:12 Supervising Physician Co-Signing Physician Notes Attending attestation Pt seen and examined in concert with Dr. Cordon. In agreement with the documented findings as noted in the resident documentation with any exceptions or additions as noted here. Flank pain essentially resolved at time of examination and tolerating POI w ithout nausea. On examination, S1/S2 nl RRR no MCG. CTAB. Abd ND BS+ve, minimal bilateral flank tenderness. Acute right pyelonephritis with gram negative bacteremia - after d/w pharmacy, complete course of augmentin as noted. Precautions re: recurrent/worsening symptoms and indications for follow up. Diabetes type 2, controlled in the setting of morbid obesity with BMI 49.1 - Resume metformin. Else see resident documentation as noted. Total attending physician time spent with this patient's care on the day of discharge: 35 minutes. Resident Activity Tracking Resident Involvement: Resident Care Provided Care Provided: Adult [facility]
== END 2022-06-21 17:08 | disposition home or self-care (01) | DRG 872 ==
LOC: ED 12:47 → 3N 16:14 → SUATTDRO 16:14 → 3N 18:11

== ENCOUNTER 2023-04-30 05:26 | Inpatient (IN) ==
--- NOTE | 2023-04-04 12:23 | PAT Medication Instructions ---
Medication Instructions Date of Service April 04, 2023 Home Medications Medication Instructions Recorded metformin 500 mg tablet 500 mg PO BID #180 tabs 05/31/22 losartan 50 mg tablet 50 mg PO QAM #90 tabs 11/06/22 cyclobenzaprine 10 mg tablet 10 mg PO TID PRN muscle spasm #90 01/01/23 tabs citalopram 20 mg tablet 20 mg PO QPM #90 tabs 03/05/23 citalopram 40 mg tablet 40 mg PO QAM #90 tabs 03/05/23 cholecalciferol (vitamin D3) 50 mcg (2,000 unit) tablet 2,000 unit PO QAM docusate sodium 100 mg capsule (Stool Softener) 100 mg PO BID polyethylene glycol 3350 17 gram/dose oral powder (ClearLax) 17 g PO QAM Constipation prevagen 1 dose PO QAM metformin 500 mg tablet 500 mg PO BID losartan 50 mg tablet 50 mg PO QAM cyclobenzaprine 10 mg tablet 10 mg PO TID PRN muscle spasm celecoxib 100 mg capsule (Celebrex) 100 mg PO BID citalopram 20 mg tablet 20 mg PO QPM citalopram 40 mg tablet 40 mg PO QAM montelukast 10 mg tablet 10 mg PO HS PRN Allergy Symptoms rosuvastatin 40 mg tablet 40 mg PO QAM semaglutide 1 mg/dose (4 mg/3 mL) subcutaneous pen injector 1 mg subcut Q7D ASK your surgeon for instructions celecoxib 100 mg capsule (Celebrex) 100 mg PO BID STOP taking 2 weeks before surgery prevagen 1 dose PO QAM STOP taking 7 days before surgery semaglutide 1 mg/dose (4 mg/3 mL) subcutaneous pen injector 1 mg subcut Q7D DO NOT take the morning of surgery cholecalciferol (vitamin D3) 50 mcg (2,000 unit) tablet 2,000 unit PO QAM docusate sodium 100 mg capsule (Stool Softener) 100 mg PO BID polyethylene glycol 3350 17 gram/dose oral powder (ClearLax) 17 g PO QAM Constipation metformin 500 mg tablet 500 mg PO BID losartan 50 mg tablet 50 mg PO QAM Take morning of surgery With a small sip of water, OTHERWISE NOTHING TO EAT OR DRINK AFTER MIDNIGHT: cyclobenzaprine 10 mg tablet 10 mg PO TID PRN muscle spasm (if needed) citalopram 40 mg tablet 40 mg PO QAM rosuvastatin 40 mg tablet 40 mg PO QAM Take evening before surgery docusate sodium 100 mg capsule (Stool Softener) 100 mg PO BID metformin 500 mg tablet 500 mg PO BID cyclobenzaprine 10 mg tablet 10 mg PO TID PRN muscle spasm (if needed) citalopram 20 mg tablet 20 mg PO QPM montelukast 10 mg tablet 10 mg PO HS PRN Allergy Symptoms (if needed) Other Notes If you have any questions please call us at [phone] or [phone] or [phone] or [phone]
--- NOTE | 2023-04-09 10:27 | Anesthesiology Consultation ---
Date of Service April 09, 2023 Assessment & Plan (1) Encounter for pre-operative examination: - Check BSG AM DOS - Infectious disease screening: Per assessment on 04/09/23: No known infectious disease contacts or current infectious disease symptoms. No noted recent Covid positive test result. - Semaglutide instructions: Patient takes on Sundays. Patient informed at PAT visit to stop 7 days prior to surgery- voiced understanding. DOS 04/30/23. Last dose advised to be 04/22/23. Chart Review Chart Review: Acceptable Risk for Surgery and Patient seen in Pre Admission Testing Teaching & Discussion Pre-Anesthesia Teaching/Discussion Notes: Instructed NPO after midnight before surgery,except medications with 15 cc of water. Medication instructions provided according to the PAT guidelines. History Surgery Operation Date: 04/30/23 07:00 Proposed Procedures p Lumbar 4-5, Lateral Interbody Fusion with Post Instrumentation, Lumbar Decompression L2-3, L3-4, L4-5, With Local Bone Graft - Jose Bravo MD Height/Weight Height: 5 ft 1 in Weight: 103.2 kg Allergies Allergy/AdvReac Type Severity Reaction Status Date / Time Sulfa (Sulfonamide Allergy Intermediate Hives Verified 03/30/23 10:11 Antibiotics) Medications Home Medications Medication Instructions Recorded Confirmed Last Taken cholecalciferol (vitamin D3) 50 2,000 unit PO QAM 02/06/18 03/30/23 09/02/18 mcg (2,000 unit) tablet docusate sodium 100 mg capsule 100 mg PO BID 07/30/19 03/30/23 Unknown (Stool Softener) polyethylene glycol 3350 17 17 g PO QAM Constipation 04/21/20 03/30/23 Unknown gram/dose oral powder (ClearLax) prevagen 1 dose PO QAM 05/15/22 03/30/23 Unknown metformin 500 mg tablet 500 mg PO BID #180 tabs 05/31/22 03/30/23 Unknown losartan 50 mg tablet 50 mg PO QAM #90 tabs 11/06/22 03/30/23 Unknown cyclobenzaprine 10 mg tablet 10 mg PO TID PRN muscle spasm #90 01/01/23 03/30/23 Unknown tabs celecoxib 100 mg capsule (Celebrex) 100 mg PO BID 01/05/23 03/30/23 Unknown citalopram 20 mg tablet 20 mg PO QPM #90 tabs 03/05/23 03/30/23 Unknown citalopram 40 mg tablet 40 mg PO QAM #90 tabs 03/05/23 03/30/23 Unknown montelukast 10 mg tablet 10 mg PO HS PRN Allergy Symptoms 03/30/23 03/30/23 Unknown rosuvastatin 40 mg tablet 40 mg PO QAM 03/30/23 03/30/23 Unknown semaglutide 1 mg/dose (4 mg/3 mL) 1 mg subcut Q7D 03/30/23 03/30/23 Unknown subcutaneous pen injector Past Medical History Medical History Depression Hyperlipidemia Hypertension Lumbosacral facet joint syndrome Morbid obesity Osteoarthritis Sleep apnea CPAP (compliant) Type II diabetes mellitus Semaglutide weekly Exercise / Class Metabolic Activity III < 4 Walking/Shop/Light housework (one FS: No CP, + SOB) Past Family History Family History Mother Hypertension Ovarian cancer Depression Father Alcohol abuse Kidney stones Brother Rheumatoid arthritis Depression Denies family history of Sudden SIDS (sudden syndrome) Prostate cancer Diabetes Deep vein thrombosis Osteoporosis Coronary heart disease Dyslipidemia Cerebral aneurysm Alzheimer disease Bipolar disorder Clotting disorder Crohn's disease Dementia Heart disease Kidney disease Myocardial infarction Osteoarthritis Breast cancer Schizophrenia Congenital kidney disease Gestational diabetes Lung cancer COPD (chronic obstructive pulmonary disease) Colorectal cancer Pulmonary embolism Lung disease Cancer Ulcerative colitis Colonic polyp Stroke Asthma Cystic kidney disease Past Surgical History Surgical History H/O tubal ligation H/O: section History of bilateral knee replacement History of carpal tunnel surgery of left wrist History of carpal tunnel surgery of right wrist History of cholecystectomy Hx of breast reduction, elective Hx of colonoscopy Hx of hysterectomy, total Past Anesthesia History No Hx of Anesthesia Complications and No Family Hx of Anesthesia Complications History of PONV No Hx of PONV and No Hx of Motion Sickness Social History Smoking Status: Never smoker Do You Dip or Chew Tobacco: No Hx Alcohol Use: No Hx Substance Use: No substance use type: does not use Review of Systems Patient denies chest pain, shortness of breath, fever, chills, cough, wheezing, palpitations. Physical Exam Vital Signs BP 139/73 P 59 TEMP 98.4 SP02 95%RA RESP 16 Physical Mildly decreased cervical extension range of motion. Full TMJ range of motion. TMD > 3.5 finger breaths Mallampati Score 3 Dentition: intact, + caps Lungs: clear throughout to auscultation Cardiac: regular rate and rhythm, no murmurs noted Spine: normal Carotid arteries: negative bruit Extremities: no LE edema Short neck Lab Results Anesthesia Preop Results Results Anesthesia Widget: WBC 7.39 K/ul (4.8-10.8) 04/09/23 Hgb 11.7 g/dl (12.0-16.0) L 04/09/23 Hct 36.5 % (37.0-47.0) L 04/09/23 Plt 126 K/uL (130-400) L 04/09/23 Na 137 mmol/L (136-145) 04/09/23 K 4.7 mmol/L (3.5-5.1) 04/09/23 Cl 106 mmol/L (98-107) 04/09/23 CO2 26 mmol/L (21-32) 04/09/23 BUN 31 mg/dl (6-23) H 04/09/23 Creat 1.23 mg/dl (0.6-1.2) H 04/09/23 Glucose Level 97 mg/dl (70-99(Fasting)) 04/09/23 PT 10.8 Seconds (9.0-12.0) 04/09/23 PTT 29 Seconds (21-31) 04/09/23 INR 1.0 (0.9-1.1) 04/09/23 HA1c 5.9 % (4.5-5.6) H 04/09/23 Blood Type A Positive 04/09/23 Antibody Screen NEGATIVE 04/09/23 Testing Electrocardiogram Date: 06/18/22 NSR at 97bpm. NS TWA lateral leads. "Normal ECG" Chest X-Ray Date: 04/09/23 FINDINGS: No lines and tubes are seen. The cardiomediastinal silhouette is normal. There is eventration of the right hemidiaphragm. No evidence of pleural effusion or pneumothorax. IMPRESSION: No acute chest disease.
[2023-04-30] MEDS ORDERED: DexMEDEtomidine HCL IV 100 MCG/ML VIAL IV ONE (06:19)
[2023-04-30] MEDS ORDERED: KETAMINE HCL 10MG/ML SYR ONE (06:20)
[2023-04-30] MEDS: LR 15ML/HR IV SCH (06:30)
[2023-04-30] MEDS: LR 60ML/HR IV SCH (06:30)
[2023-04-30] MEDS ORDERED: NALOXONE HCL 0.4 MG/1 ML VIAL/CARP IV PRN ×2 (06:34→16:31)
[2023-04-30] MEDS ORDERED: ePHEDrine sulfate 50 MG/ML AMP IV PRN (06:34)
[2023-04-30] MEDS ORDERED: LABETALOL HCL IV 5 MG/ML 20ML IV PRN (06:34)
[2023-04-30] MEDS ORDERED: ONDANSETRON INJ 2 MG/ML 2 ML VIAL IV PRN ×3 (06:34→16:31)
[2023-04-30] MEDS ORDERED: FLUMAZENIL 0.1 MG/1 ML 10 ML VIAL IV PRN (06:34)
[2023-04-30] MEDS ORDERED: fentaNYL citrate PF 100 MCG/2 ML VIAL IV PRN (06:34)
[2023-04-30] MEDS ORDERED: ATROPINE SULFATE 0.1 MG/ML 10ML SYR IV PRN (06:34)
[2023-04-30] MEDS ORDERED: HYDROmorphone INJ 1 MG/ML SYRINGE IV PRN (06:34)
[2023-04-30] MEDS ORDERED: PROMETHAZINE HCL 6.25 MG in SODIUM CHLORIDE 0.9% 50 ML IV PRN (06:34)
[2023-04-30] MEDS ORDERED: fentaNYL citrate PF 100 MCG/2 ML VIAL ONE (06:37)
[2023-04-30] MEDS ORDERED: MIDAZOLAM HCL 1 MG/ML 2ML VIAL ONE (06:37)
[2023-04-30] MEDS ORDERED: PROPOFOL IV EMULSION 10 MG/ML 20 ML VIAL IV ONE (06:39)
[2023-04-30] MEDS ORDERED: LIDOCAINE 2% 2 ML VIAL/AMP(20MG/ML) INFIL ONE (06:39)
[2023-04-30] MEDS ORDERED: SUGAMMADEX SODIUM 200 MG/2 ML VIAL IV ONE ×2 (06:40→15:29)
[2023-04-30] MEDS ORDERED: ALBUMIN HUMAN 5% 12.5 GM/250 ML VIAL IV ONE (06:43)
--- NOTE | 2023-04-30 07:44 | History & Physical Bridge Note ---
Date of Service April 30, 2023 History & Physical Bridge Note I have examined the patient, reviewed the History & Physical and in the interval since the performance of the History & Physical I have noted the following changes of clinical significance: no changes noted
[2023-04-30] MEDS: ceFAZolin 2000MG 2,000 MG/15 ML SYR IV SCH (09:24)
[2023-04-30] MEDS ORDERED: ePHEDrine sulfate 50 MG/5 ML SYR ONE ×3 (09:56→12:58)
[2023-04-30] MEDS ORDERED: VASOPRESSIN 20 UNIT/ML VIAL ONE (09:56)
[2023-04-30] MEDS ORDERED: HYDROmorphone INJ 2 MG/ML SYR/VIAL ONE (10:10)
[2023-04-30] MEDS ORDERED: ACETAMINOPHEN 1000 MG/100 ML IV IV ONE (12:14)
[2023-04-30] MEDS ORDERED: FAMOTIDINE/PF 20 MG/2 ML VIAL IV ONE (12:14)
[2023-04-30] MEDS ORDERED: PHENYLEPHRINE HCL 10 MG/ML VIAL ONE (13:15)
[2023-04-30] MEDS ORDERED: PHENYLEPHRINE 100MCG/ML 10ML SYR IV ONE (13:15)
[2023-04-30] MEDS ORDERED: ceFAZolin 330 MG/ML 1 GM VIAL ONE (14:27)
[2023-04-30] MEDS: ceFAZolin 2000MG 2,000 MG/15 ML SYR IV ONE (14:27)
[2023-04-30] MEDS: GELATIN SPONGE SZ 100 ONE (14:31)
[2023-04-30] MEDS: THROMBIN 5000 UNITS KIT ONE (15:15)
[2023-04-30] MEDS: VANCOMYCIN HCL 1000MG/20ML VIAL ONE (15:26)
[2023-04-30] MEDS: BUPIVACAINE/EPINEPHRINE 0.5% MPF 1:200,000 30 ML VIAL ONE (15:37)
--- NOTE | 2023-04-30 16:20 | Post Operative Brief Note ---
PG Immediate Post Op with CF Date of Surgery April 30, 2023 Pre & Post Diagnosis Operation Date: 04/30/23 07:15 Pre-Op Diagnosis: Scoliosis of Lumbar Region Due to Degenerative Disease Post-Op Diagnosis: Scoliosis of Lumbar Region Due to Degenerative Disease I identified the patient and participated in the time-out.: Yes Procedure Operation Date: 04/30/23 07:15 Actual Procedures p Lumbar 4-5 Lateral Interbody Fusion with Posterior Instrumentation, Lumbar Decompression L2-3, L3-4, L4-5, With Local Bone Graft(Not Applicable) - Jose Bravo MD Surgeon Jose Bravo MD Supervisor Dumping none Estimated Blood Loss 200 Findings Consistent with Post-Op Diagnosis Specimens Specimen Description: None per surgeon Drains Stoll Catheter
[2023-04-30] MEDS ORDERED: POLYETHYLENE (MIRALAX) 17 GM PACK PO PRN (16:21)
[2023-04-30] MEDS ORDERED: ACETAMINOPHEN 325 MG TAB PO PRN (16:21)
[2023-04-30] MEDS ORDERED: ALUMINUM/MAGNESIUM SUSP 30 ML UDC PO PRN ×2 (16:21→16:31)
[2023-04-30] MEDS ORDERED: MAGNESIUM HYDROXIDE SUSP 30 ML UDC PO PRN ×2 (16:21→16:31)
[2023-04-30] MEDS ORDERED: LORazepam 0.5 MG in SYRINGE 0.25 ML IV PRN (16:31)
[2023-04-30] MEDS ORDERED: SOD PHOSPHATE/SOD BIPHOSPHATE ENEMA 132 ML BTL PR PRN (16:31)
[2023-04-30] MEDS ORDERED: PROMETHAZINE HCL 12.5 MG in SODIUM CHLORIDE 0.9% 50 ML IV PRN (16:31)
[2023-04-30] MEDS ORDERED: ACETAMINOPHEN 1,000 MG/100 ML VIAL IV PRN (16:31)
[2023-04-30] MEDS ORDERED: LORazepam 0.5 MG TAB PO PRN (16:31)
[2023-04-30] MEDS ORDERED: METOCLOPRAMIDE HCL INJ 5 MG/ML 2 ML VIAL IV PRN (16:31)
[2023-04-30] MEDS ORDERED: DO NOT ADMINISTER PNEUMOCOCCAL VACCINE PRN (16:31)
[2023-04-30] MEDS ORDERED: ACETAMINOPHEN 500 MG TAB PO PRN (16:31)
[2023-04-30] MEDS ORDERED: diphenhydrAMINE Capsule 25 MG CAP PO PRN (16:31)
[2023-04-30] MEDS ORDERED: ONDANSETRON 4 MG OD TAB PO PRN (16:31)
[2023-04-30] MEDS ORDERED: DO NOT ADMINISTER FLU VACCINE PRN (16:31)
[2023-04-30] MEDS ORDERED: FAMOTIDINE 20 MG TAB PO PRN (16:31)
[2023-04-30] MEDS ORDERED: hydrOXYzine HCl 25 MG TAB PO PRN (16:31)
[2023-04-30] MEDS ORDERED: bisacodyL 10 MG SUPP PR PRN (16:31)
--- NOTE | 2023-04-30 16:36 | Fluoroscopy Report ---
INTRAOPERATIVE RADIOGRAPHS CLINICAL HISTORY: Lumbar spinal fusion surgery. Fluoro time: 255 seconds Ka,r: 31.05 mGy FINDINGS: 13 spot fluoroscopic views of the lumbar spine are presented. There is discectomy at L4-L5 with laminectomy and posterior fusion at this level. Interpedicular screws are in place. The orthoped ic hardware appears intact. IMPRESSION: Intraoperative images from lumbar spinal fusion surgery as above. Electronically signed by: Deng Hou M.D. 04/30/2023 4:35 PM
--- NOTE | 2023-04-30 17:02 | Anesthesiology Progress Note ---
Date of Service April 30, 2023 Anesthesia Post Procedure Vital Signs Vital Signs: Temp Pulse Resp BP BP Pulse Ox O2 Del Method 04/30/23 16:55 36.4 C L 89 17 127/66 96 Nasal Cannula 04/30/23 16:45 90 17 143/70 H 95 Nasal Cannula 04/30/23 16:35 88 18 131/65 95 Nasal Cannula 04/30/23 16:25 85 20 140/66 95 Oxymask 04/30/23 16:15 83 16 139/67 98 Oxymask 04/30/23 16:06 36.2 C L 89 14 132/61 93 Oxymask 04/30/23 05:43 37.1 C 64 16 171/84 H 95 Room Air O2 Flow Rate 04/30/23 16:55 2 04/30/23 16:45 4 04/30/23 16:35 4 04/30/23 16:25 5 04/30/23 16:15 9 04/30/23 16:06 9 04/30/23 05:43 Pain Intensity Lower Back: Pain Intensity: 0 Transfer of Care Handoff Completed per policy Notes Mental Status: alert / awake / arousable Patient Amnestic to Procedure: Yes Nausea / Vomiting: adequately controlled Pain: adequately controlled Airway Patency, RR, SpO2: stable & adequate BP & HR: stable & adequate Hydration State: stable & adequate Anesthetic Complications: no major complications apparent
[2023-04-30] MEDS ORDERED: MONTELUKAST SODIUM 10 MG TABLET PO PRN (17:37)
[2023-04-30] MEDS: LACTATED RINGER'S 1,000 ML IV SCH (18:06)
[2023-04-30] MEDS: HYDROmorphone INJ 0.5 MG/0.5 ML SYR IV PRN (18:12)
--- NOTE | 2023-04-30 18:26 | Hospitalist Consultation ---
Date of Consultation April 30, 2023 Assessment & Plan (1) Status post lumbar spine surgery for decompression of spinal cord: W/ Dr. Jose Bravo on 04/29 Postop lumbar spine x-ray revealed hardware intact Pain control, perioperative antibiotics, DVT PPx, and fluids per the primary team OOB with assistance as tolerated PT/OT consulted Wean off supplemental oxygen therapy as tolerated Added on a.m. CBC, BMP; we will follow (2) Type II diabetes mellitus: Last A1c 5.9% on 04/09/23; no need to repeat Glucose 166 at time of consult Not currently on steroids Will hold metformin and add on loose SSI with target range [id number]; CF 45, no carb ratio Can be managed without basal insulin BSG ACHS Advance to T2DM diet Added on hypoglycemia medications as needed (3) Sleep apnea: Patient brought in her own CPAP from home May use own CPAP HS (4) Hypertension: Given patient has been mildly hypertensive postop, we will plan to restart losartan tomorrow morning on 04/30 Hold AM losartan if SBP <100 (5) Depression: Continue Celexa Plan Agree with medical decision making Disposition: MedSurg Clear liquid diet and advance to T2DM diet as tolerated VTE PPx: SCDs Thank you for allowing us participate in the care of this patient, please reach out with any additional questions or concerns; we will continue to follow. Supervising Physician Co-Signing Physician Notes I personally saw and examined the patient. I independently reviewed the labs, EKG, imaging, problem list, medication list, past medical history and family history. I verified all dillon points and agree with Michael Escamilla PA-C with the following exceptions and/or additions: 68 year old female s/p lumbar spine decompression, fusion with posterior instrumentation O/E A&Ox3, HS RRR, no murmurs, Chest CTAB, Abdo SNT A/P s/p lumbar spine surgery - VTE/bowel/pain management per primary team T2DM - insulin for correction overnight ROSS - CPAP HS HTN - hold losartan if sBP < 100 otherwise can continue History of Present Illness Reason for Consultation: Medical management Requesting Physician: Dr. Bravo Attending Physician: Jose Bravo MD History of Present Illness Reshma is a 68-year-old female with PMH of sleep apnea, T2DM, HLD, HTN, bilateral cataracts, anxiety, DJD of hip, degenerative spondylolisthesis, and lumbar stenosis with neurogenic claudication. She presented on 04/30/23 for an L4-5 lateral interbody fusion and L2-[address] Jose Bravo. Per review of brief operative note, EBL was listed as 200 cc, and findings were consistent with postop diagnosis of lumbar scoliosis due to degenerative disease. At time of consult, patient endorses 8/10 lower back pain which has been constant since her procedure. No radiation down the legs or up the spine. She describes it as a sharp stabbing pain, that is worse with movements. She has not tried eating or drinking since being up. She does endorse 1 episode of vomiting, which she attributes to feeling overheated; she denies any nausea and declines nausea medication at time of consult. She does have a Stoll catheter in place; denies burning sensation or suprapubic tenderness. No saddle anesthesia. Patient did not take her regular morning medications; she reports that she only took her Celexa and rosuvastatin. No recent change in medications. She takes metformin and Ozempic for her diabetes. Patient uses a CPAP at night, and brought her own CPAP in from home. No other supplemental oxygen use at home. Per review of patient's vitals postop, she has been mildly hypertensive with a peak at 162/80; vitals otherwise stable. ROS: Patient endorses lower back pain, and 1 episode of vomiting postop (which patient attributes to feeling overheated). Patient denies fever, chills, sweats, dizziness, lightheadedness, headache, chest pain, pleuritic CP, SOB, abdominal pain, nausea, diarrhea, saddle anesthesia, urinary symptoms, or numbness/tingling/pain in the lower extremities bilaterally. Allergies Allergy/AdvReac Type Severity Reaction Status Date / Time Sulfa (Sulfonamide Allergy Intermediate Hives Verified 04/30/23 05:53 Antibiotics) Home Medications Medication Instructions Recorded Confirmed Type cholecalciferol (vitamin D3) 50 2,000 unit PO QAM 02/06/18 04/30/23 History mcg (2,000 unit) tablet docusate sodium 100 mg capsule 100 mg PO BID 07/30/19 04/30/23 History (Stool Softener) polyethylene glycol 3350 17 17 g PO QAM Constipation 04/21/20 04/30/23 History gram/dose oral powder (ClearLax) prevagen 1 dose PO QAM 05/15/22 04/30/23 History metformin 500 mg tablet 500 mg PO BID #180 tabs 05/31/22 04/30/23 Rx losartan 50 mg tablet 50 mg PO QAM #90 tabs 11/06/22 04/30/23 Rx cyclobenzaprine 10 mg tablet 10 mg PO TID PRN muscle spasm #90 01/01/23 04/30/23 Rx tabs celecoxib 100 mg capsule (Celebrex) 100 mg PO BID 01/05/23 04/30/23 History citalopram 20 mg tablet 20 mg PO QPM #90 tabs 03/05/23 04/30/23 Rx citalopram 40 mg tablet 40 mg PO QAM #90 tabs 03/05/23 04/30/23 Rx montelukast 10 mg tablet 10 mg PO HS PRN Allergy Symptoms 03/30/23 04/30/23 History rosuvastatin 40 mg tablet 40 mg PO QAM 03/30/23 04/30/23 History semaglutide 1 mg/dose (4 mg/3 mL) 1 mg subcut Q7D 03/30/23 04/30/23 History subcutaneous pen injector Patient History Medical History (Updated 04/30/23 @ 19:26 by Michael Escamilla PA-C) Lumbosacral facet joint syndrome Type II diabetes mellitus Semaglutide weekly Morbid obesity Depression Sleep apnea CPAP (compliant) Osteoarthritis Hyperlipidemia Hypertension Surgical History (Updated 04/30/23 @ 18:30 by Michael Escamilla PA-C) History of carpal tunnel surgery of left wrist H/O tubal ligation H/O: section Hx of colonoscopy History of carpal tunnel surgery of right wrist Hx of breast reduction, elective Hx of hysterectomy, total History of bilateral knee replacement History of cholecystectomy Family History Mother Hypertension Ovarian cancer Depression Father Alcohol abuse Kidney stones Brother Rheumatoid arthritis Depression Denies family history of Sudden SIDS (sudden infant syndrome) Prostate cancer Diabetes Deep vein thrombosis Osteoporosis Coronary heart disease Dyslipidemia Cerebral aneurysm Alzheimer disease Bipolar disorder Clotting disorder Crohn's disease Dementia Heart disease Kidney disease Myocardial infarction Osteoarthritis Breast cancer Schizophrenia Congenital kidney disease Gestational diabetes Lung cancer COPD (chronic obstructive pulmonary disease) Colorectal cancer Pulmonary embolism Lung disease Cancer Ulcerative colitis Colonic polyp Stroke Asthma Cystic kidney disease Social History Smoking Status: Never smoker Second Hand Exposure: No; Do You Dip or Chew Tobacco: No; Tobacco Cessation Education Requested by Patient: No Hx Alcohol Use: No Hx Substance Use: No Preferred Language: [place] Communication Ability: Effective Visual Impairment: No Limitations Hearing Ability: Normal Leather Fitter Required: No Beliefs That Will Affect Care: None marital status: Current Living Situation: Spouse 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 Children do You have: 1 Other Information That Helps Us Care for You: No Feels Safe at Home: Yes Safety Concerns: Feels Safe At This Time Childhood Exposure to Second-Hand Smoke: No Diet: regular caffeine: Yes (iced tea) during the past year weight has: increased > 10 lbs Dental Care, Regularly: Yes Physical Activity Frequency: Does not Exercise Seatbelt Use: always Sunscreen Use: No Assistive Devices: Glasses Assistive Devices Comment: glasses prn Review of Systems Review of Systems: See HPI above Physical Exam Physical Exam: General: Moderate distress secondary to lower back pain; non-toxic appearing; well-nourished; cooperative; 95% on 2L NC HEENT: normocephalic, atraumatic; no scleral icterus; PERRLA; moist mucus membrane; vision and hearing intact Neck: supple; no lymphadenopathy; trachea midline Skin: warm, dry without signs of tenting; no cyanosis; no rashes, bruising, lesions, or erythema noted CV: chest wall NTP; RRR; S1/S2 normal; no murmurs/rubs/gallops; pulses intact and symmetric at radial, DP, and PT Lungs: no acute respiratory distress; symmetrical chest wall expansion; clear breath sounds across all lung birch w/o adventitious sounds; no wheezing ABD: Soft, NTP; BS present; no rebound/guarding Back: Dressing without signs of erythema, drainage, or bleeding; lower back TTP bilateral; upper back NTP MSK: no tics or fasciculations; no edema noted in the LEs b/l, nonerythematous; patient demonstrates ability to wiggle toes bilaterally Neuro: A&Ox3; normal mood and affect; fluent speech; no focal deficits; s ensation grossly intact in the LEs b/l; feet are neurovascularly intact assessed at DP and PT Results & Data Results & Data Vital Signs (Past 12 Hours) Vital Signs Temp Pulse Pulse Resp BP Pulse Ox O2 Del Method 04/30/23 18:00 36.4 C L 91 H 18 139/70 94 Nasal Cannula 04/30/23 17:30 36.3 C L 94 H 16 162/80 H 95 Nasal Cannula 04/30/23 17:15 36.4 C L 90 19 129/69 96 Nasal Cannula 04/30/23 17:05 36.4 C L 91 H 17 128/57 L 96 Nasal Cannula 04/30/23 16:55 36.4 C L 89 17 127/66 96 Nasal Cannula 04/30/23 16:45 90 17 143/70 H 95 Nasal Cannula 04/30/23 16:35 88 18 131/65 95 Nasal Cannula 04/30/23 16:25 85 20 140/66 95 Oxymask 04/30/23 16:15 83 16 139/67 98 Oxymask 04/30/23 16:06 36.2 C L 89 14 132/61 93 Oxymask O2 Flow Rate 04/30/23 18:00 2 04/30/23 17:30 2 04/30/23 17:15 2 04/30/23 17:05 2 04/30/23 16:55 2 04/30/23 16:45 4 04/30/23 16:35 4 04/30/23 16:25 5 04/30/23 16:15 9 04/30/23 16:06 9 Laboratory Results Abnormal lab results 04/30/23 04/30/23 04/30/23 Range/Units 05:48 06:03 12:52 POC Glucose 105 H 149 H (70-99) mg/dl Crossmatch See Detail 04/30/23 04/30/23 Range/Units 16:14 17:31 POC Glucose 140 H 166 H (70-99) mg/dl Crossmatch Diagnostic Findings Lumbar Spine X-Ray 04/30/23 07:15 INTRAOPERATIVE RADIOGRAPHS CLINICAL HISTORY: Lumbar spinal fusion surgery. Fluoro time: 255 seconds Ka,r: 31.05 mGy FINDINGS: 13 spot fluoroscopic views of the lumbar spine are presented. There is discectomy at L4-L5 with laminectomy and posterior fusion at this level. Interpedicular screws are in place. The orthopedic hardware appears intact. IMPRESSION: Intraoperative images from lumbar spinal fusion surgery as above. Electronically signed by: Deng Hou M.D. 04/30/2023 4:35 PM PG Care Time/CCT Total # of Minutes Spent Total Time Spent with Patient: Total time spent is greater than 50% in coordination of care (as documented) at patient's floor/unit and/or counseling patient: [place] [address] IN/OBS CONSULT LVL 4,60M Patient Type New Medical Decision Making Moderate Complexity Diagnoses Status post lumbar spine surgery for decompression of spinal cord Z98.890 Type II diabetes mellitus E11.9 Sleep apnea G47.30 Hypertension I10 Depression F32.9
[2023-04-30] MEDS ORDERED: DEXTROSE 50% 50 ML SYRINGE IV PRN (18:53)
[2023-04-30] MEDS ORDERED: CARBOHYDRATES FOR HYPOGLYCEMIA PO PRN (18:53)
[2023-04-30] MEDS ORDERED: GLUCAGON FOR INJ 1 MG VIAL SQ PRN (18:53)
[2023-04-30] MEDS ORDERED: GLUCOSE 40% GEL 15 GM TUBE PO PRN (18:53)
[2023-04-30] MEDS ORDERED: GLUCOSE 10 TAB/TUBE PO PRN (18:53)
[2023-04-30] MEDS: CITALOPRAM 20 MG TAB PO SCH (20:06)
[2023-04-30] MEDS: oxyCODONE/ACETAMINOPHEN 5mg/325mg TAB PO PRN (20:06)
[2023-04-30] MEDS: DOCUSATE SODIUM/SENNA 50/8.6MG TAB PO SCH (20:06)
[2023-04-30] MEDS: DOCUSATE SODIUM 100 MG CAP PO SCH (20:07)
[2023-04-30] MEDS: metFORMIN HCL 500 MG TAB PO SCH (21:30)
[2023-04-30] MEDS: ceFAZolin 1000MG 1,000 MG/7.5 ML SYR IV SCH (23:18)
[2023-04-30] MEDS: INSULIN ASPART PER UNIT CHARGE SC SCH (23:18)
[2023-04-30] MEDS: CYCLOBENZAPRINE HCL 10 MG TAB PO PRN (23:22)
[2023-05-01] MEDS: POLYETHYLENE (MIRALAX) 17 GM PACK PO SCH ×2 (06:10→08:14)
[2023-05-01 06:50] LABS: Basophils # (auto) 0.02 K/uL (0.00-0.20); Basophils % (auto) 0.1 %; Hematocrit (blood only) 33.3 % (37.0-47.0); Hemoglobin 10.1 g/dl (12.0-16.0); Immature Granulocytes # (auto) 0.05 K/uL (0.01-0.20); Immature Granulocytes % (auto) 0.4 %; Lymphocytes # (auto) 0.88 K/uL (1.20-3.40); Lymphocytes % (auto) 6.4 %; Mean Corpuscular Hemoglobin 28.5 pg (25.0-34.0); Mean Corpuscular Hgb Conc 30.3 g/dL (32.0-36.0); Mean Corpuscular Volume 94.1 fL (80.0-100.0); Mean Platelet Volume 11.2 fL (9.4-12.4); Monocytes # (auto) 1.09 K/uL (0.11-0.59); Neutrophils # (auto) 11.61 K/uL (1.40-6.50); Neutrophils % (auto) 85.1 %; Platelet Count 102 K/uL (130-400); RDW Coefficient of Variation 13.9 % (11.5-14.5); RDW Standard Deviation 48.1 fL (36.4-46.3); Red Blood Count 3.54 M/uL (4.20-5.40); White Blood Count 13.65 K/ul (4.8-10.8)
[2023-05-01 07:03] LABS: BUN Creatinine Ratio 24.1 (10-20); Calcium 8.8 mg/dl (8.6-10.3); Creatinine Clr Calc Pharmacy 49.1 ml/min; Est GFR (African American) 55.2 ml/min; Est GFR (Non-African American) 47.7 ml/min; Potassium 4.7 mmol/L (3.5-5.1)
[2023-05-01] MEDS: LOSARTAN POTASSIUM 50 MG TAB PO SCH (08:27)
[2023-05-01] MEDS: CITALOPRAM 40 MG TAB PO SCH (08:27)
[2023-05-01] MEDS ORDERED: NON-FORMULARY MEDICATION (Prevagen 1 EA) PO SCH (09:00)
--- NOTE | 2023-05-01 11:41 | Orthopedic Progress Note ---
Date of Service May 01, 2023 Assessment & Plan (1) Status post lumbar spine surgery for decompression of spinal cord: Patient presentation and plan discussed with Dr. Bravo. Overall, she is doing quite well today postoperatively. She has worked with physical therapy and was able to do ambulation and range of motion exercises quite well. She may be discharged home later this morning if she feels comfortable and her pain is well-controlled. She will follow-up with Dr. Bravo in 2 weeks for postopera tive management. Jair Justice was seen and evaluated this morning as she was working with physical therapy. She notes that her postoperative pain is well-controlled at this point with current analgesic regimen. She notes that her leg symptoms have improved postoperatively. She notes that she was easily able to ambulate with physical therapy with use of her wheeled walker. She denies any other concerns today. Review of Systems All systems reviewed & are unremarkable except as noted in HPI & below. Physical Exam . On physical examination of the lower lumbar spine, dressings are clean, dry, intact. Her legs are out in full extension bilaterally. Able to do bilateral straight leg raises. Plantarflexion dorsiflexion intact bilaterally at the ankles. +2 DP and PT pulses. Less than 2-second capillary refill. Normal sensation. Neurovascular intact. Results & Data Results & Data Laboratory Results . Diagnostic Findings . PG Care Time/CCT Total # of Minutes Spent Total Time Spent with Patient: Total time spent is greater than 50% in coordination of care (as documented) at patient's floor/unit and/or counseling patient: Coding Level of Care Code 03428 Post Operative Follow-Up Diagnoses Status post lumbar spine surgery for decompression of spinal cord Z98.890
--- NOTE | 2023-05-01 12:37 | Hospitalist Progress Note ---
Date of Service May 01, 2023 Assessment & Plan (1) Status post lumbar spine surgery for decompression of spinal cord: Plan: L umbar 4-5 Lateral Interbody Fusion with Posterior Instrumentation, Lumbar Decompression L2-3, L3-4, L4-5, With Local Bone Graft W/ Dr. Bravo on 04/29 - Pain control, perioperative antibiotics, DVT PPx, and fluids per the primary team - PT/OT consulted - stable on room air - EBL 200 - hgb 10.1, down from 11.7 preoperatively, suspect acute blood loss anemia (2) Type II diabetes mellitus: Plan: Last A1c 5.9% on 04/09/23; managed with home Metformin Will hold metformin and add on loose SSI with target range [id number]; CF 45, no carb ratio BSG ACHS (3) Sleep apnea: Plan: Patient brought in her own CPAP from home May use own CPAP HS (4) Hypertension: Plan: Losartan resumed this morning Hold AM losartan if SBP <100 (5) Depression: Plan: Continue Celexa (6) Thrombocytopenia: Plan: Chronic, has seen heme in the past Platelets 102 this morning, 126 preoperatively Plan Disposition: medically stable, would recommend patient tolerating advanced diet and passing flatulence prior to discharge VTE PPx: SCDs Thank you for allowing us participate in the care of this patient, please reach out with any additional questions or concerns; we will continue to follow. Admission and Anticipated Discharge Date Admission Date: April 30, 2023 Supervising Physician Co-Signing Physician Notes RUFUS Supervision Note: I did not personally see or examine the patient today, but I verified all dillon points of RUFUS Hines's assessment and plan with the following exceptions/additions: None Subjective Patient lying in bed, present at bedside. States that her pain is about a 5 out of 10, has been responding well to the pain medication. No bowel movement since surgery, not passing flatulence. Only had a clear liquid diet for breakfast this morning Review of Systems Review of Systems: All systems reviewed & are unremarkable except as noted in Subjective Physical Exam Physical Exam: General: NAD, VS as above Resp: normal respiratory effort, lungs clear to auscultation. patient using CPAP machine when i walked into room CV: RRR, no murmur, Abd: normal bowel sounds, non tender, no hepatosplenomegaly Extremities: Moves all extremities, no edema Results & Data Results & Data Vital Signs (Past 12 Hours) Vital Signs Temp Pulse Resp BP BP Pulse Ox O2 Del Method 05/01/23 07:47 37.0 C 85 16 132/72 91 Room Air 05/01/23 03:58 36.5 C 77 17 138/73 92 Room Air Laboratory Results CBC and chemistry reviewed PG Care Time/CCT Total # of Minutes Spent Total Time Spent with Patient: Total time spent is greater than 50% in coordination of care (as documented) at patient's floor/unit and/or counseling patient: Coding Level of Care Code 37139 SUB INP/OBS CARE 2/35MIN Diagnoses Status post lumbar spine surgery for decompression of spinal cord Z98.890 Type II diabetes mellitus E11.9 Sleep apnea G47.30 Hypertension I10 Depression F32.9 Thrombocytopenia D69.6
--- NOTE | 2023-05-01 14:31 | Operative Report ---
PG Post Operative Report Pre & Post Diagnosis Operation Date: 04/30/23 07:15 Pre-Op Diagnosis: Scoliosis of Lumbar Region Due to Degenerative Disease Post-Op Diagnosis: Scoliosis of Lumbar Region Due to Degenerative Disease I identified the patient and participated in the time-out.: Yes Procedure Operation Date: 04/30/23 07:15 Actual Procedures p Lumbar 4-5 Lateral Interbody Fusion with Posterior Instrumentation, Lumbar Decompression L2-3, L3-4, L4-5, With Local Bone Graft(Not Applicable) - Jose Bravo MD Surgeon Jose Bravo MD Data Entry Email Processor none Estimated Blood Loss 200 Findings Consistent with Post-Op Diagnosis Specimens none Description of Procedure 1. Right L4-5 lateral interbody arthrodesis (50331) 2. Insertion of intervertebral cage L4-5, NuVasive cohere XL 10 x 18 x 55 lordotic (54591) 3. L4-5 posterior arthrodesis (47833) 4. L4-5 posterior nonsegmental instrumentation, NuVasive reline (53564) 5. L2-3 posterior lumbar decompression (24169) 6. L3-4 posterior lumbar decompression (20545) 7. Utilization of products of decompression for fusion purposes (91610) Patient was taken the operating room after adequate anesthesia was carefully positioned in the left lateral decubitus right side up on the OR table. After doing positioning, and fluoroscopy for localization of level and adjustments, nancy elise underwent a preprepped in the right flank region and also posterior lumbar region. Incision area just over the iliac crest on the right was marked followed by prep and drape. I began the procedure with a transverse incision just over the iliac crest, and I then dissected down through subcutaneous tissues, through the fascial layer and into the retroperitoneal region. From here I was able to advance the initial probe from the NuVasive set and guided using fluoroscopy and monitoring to the lateral aspect of the L4-5 disc space. Monitoring was then used to confirm a location about the midportion of the disc, I was then able to add the additional dilators and then the access tubing. This was secured to the table in routine fashion, and then I visualized the region of the lateral disc. This was also tested with the probe and when noted to be free of any plexus, I then incised the lateral annulus. From here cobs were inserted along with kirsten and ring curettes, I continued this process until a thorough discectomy had been performed with removal of disc and cartilage from the endplates. Once this had been achieved, I then went through trials selecting a size cage as noted, this was then packed with fusion materials and advanced into the interspace with excellent position on AP and lateral views. With this now completed I then removed the access apparatus after starting small amount of vancomycin powder. No issues were noted on removal of the access apparatus, the incision was closed with 0 and 2-0 Vicryl sutures and rayna for the skin, sterile dressing applied. Patient was then repositioned to the prone position on the Nicanor frame, and once again fluoroscopy was brought in to shaheen for the area of the incision followed by prepping and draping. I began the procedure with a midline incision carried down through the subcutaneous tissues to either side of the spinous process with fascial release. I then mobilized the tissues from the spinous processes to expose the interlaminar region of L2-3, L3-4 and L4-5. I then exposed the facets in the L4 and L5 regions, and once this was completed I then moved ahead with the instrumentation. High-speed bur was then utilized to make the start point for the pedicle screws using fluoroscopic control, from here I then inserted the gearshift's and monitor them with advancement into the vertebral bodies at L5. Tap was utilized at 5.5 mm, monitoring was utilized with all readings greater than 20. 6.5 millimeter screws 50 mm in length were inserted without issue. The same process was then repeated for L4 with excellent placement of all instrumentation. Rods were then inserted, I secured them at the L5 level slightly proud and then using the reduction tool was able to continue to mobilize the L4 vertebral body closer to normal position. All setscrews were torqued down properly. The interspinous ligament was then removed between L2-3 and L3-4. I spent time mobilizing the tissues in and around the interspaces at both levels exposing the laminar edges of L2-3 and L3-4. Starting at the L3-4 level, the inferior laminar edge of L3 and the superior laminar edge of L4 along the medial facets on both sides where then burred and I used combination curettes and Kerrison punches to then thinned the ligamentum flavum. Once adequate laminotomies and or laminectomies were performed, I then remove the remaining thickened ligamentum flavum bilaterally exposing the dura and then undercutting the facets. This process continued until the level was well decompressed for the L3 and L4 nerve roots. I then moved to the L2-3 level and then performed the same procedure with bilateral exposures using inferior laminectomy of the L2 and superior laminar edge of L3, similar exposure with thinning of the ligamentum flavum, moving down the medial facets and then removing the remaining ligamentum flavum and undercutting the facets and lateral recess region completing a decompression. There was a small disc fragment on the left at L2-3 I did mobilize the dura over and remove this small fragment. With completion of the decompressions, the area was irrigated. I then decorticated the L4 and L5 lamina regions, the products of decompression which were collected from the burring and also removal of the spinous processes was then applied to the posterior fusion at L4-5 bilaterally along with the remaining infuse sponge on each side. Operative site was then closed after placing vancomycin powder with interrupted 0 Vicryl sutures reattaching the supraspinous ligament were available, and an additional layer of 0 and 2-0 Vicryl sutures, rayna for the skin. Sterile dressing was applied, patient tolerated procedure well was taken recovery room satisfactory condition. I attest to the content of the Intraoperative Record and any orders documented therein. Any exceptions are noted below.
[2023-05-02 06:30] LABS: BUN Creatinine Ratio 19.9 (10-20); Calcium 8.9 mg/dl (8.6-10.3); Creatinine Clr Calc Pharmacy 41.9 ml/min; Est GFR (African American) 45.6 ml/min; Est GFR (Non-African American) 39.3 ml/min; Potassium 4.2 mmol/L (3.5-5.1)
[2023-05-02 06:42] LABS: Basophils # (auto) 0.03 K/uL (0.00-0.20); Basophils % (auto) 0.2 %; Eosinophils # (auto) 0.05 K/uL (0.00-0.50); Eosinophils % (auto) 0.4 %; Hematocrit (blood only) 28.2 % (37.0-47.0); Hemoglobin 8.7 g/dl (12.0-16.0); Immature Granulocytes # (auto) 0.09 K/uL (0.01-0.20); Immature Granulocytes % (auto) 0.7 %; Lymphocytes # (auto) 1.56 K/uL (1.20-3.40); Lymphocytes % (auto) 11.5 %; Mean Corpuscular Hgb Conc 30.9 g/dL (32.0-36.0); Mean Platelet Volume 11.7 fL (9.4-12.4); Monocytes # (auto) 1.76 K/uL (0.11-0.59); Neutrophils # (auto) 10.07 K/uL (1.40-6.50); Neutrophils % (auto) 74.2 %; Platelet Count 95 K/uL (130-400); RDW Coefficient of Variation 14.1 % (11.5-14.5); RDW Standard Deviation 48.9 fL (36.4-46.3); White Blood Count 13.56 K/ul (4.8-10.8)
--- NOTE | 2023-05-02 10:58 | Hospitalist Progress Note ---
Date of Service May 02, 2023 Assessment & Plan (1) Status post lumbar spine surgery for decompression of spinal cord: Plan: L umbar 4-5 Lateral Interbody Fusion with Posterior Instrumentation, Lumbar Decompression L2-3, L3-4, L4-5, With Local Bone Graft W/ Dr. Bravo on 04/29 - Pain control, perioperative antibiotics, DVT PPx, and fluids per the primary team - PT/OT consulted - recommend return home. - stable on room air - EBL 200 - hgb 10.1, down from 11.7 preoperatively, suspect acute blood loss anemia - hgb down to 8.7 this morning. Patient asymptomatic. Will recheck outpatient CBC, encouraged hydration. Discussed monitoring for signs of light headedness of dizziness. (2) Hypertension: Plan: Blood pressures now low - normal Orthostatic VS WNL Creatinine increased this morning to 1.36 - Plan to hold losartan until repeat labs early next week. Outpatient BMP ordered (3) Type II diabetes mellitus: Plan: Last A1c 5.9% on 04/09/23; managed with home Metformin Did not require sliding scale insulin while inpatient Resume Metformin at discharge (4) Sleep apnea: Plan: Patient brought in her own CPAP from home May use own CPAP HS (5) Depression: Plan: Continue Celexa (6) Thrombocytopenia: Plan: Chronic, has seen heme in the past Platelets 102 this morning, 126 preoperatively Now 95 - recheck outpatient CBC ordered Plan Disposition: medically stable, okay to discharge. Outpatient labs ordered and results forwarded to PCP Thank you for allowing us participate in the care of this patient, please reach out with any additional questions or concerns; we will continue to follow. Admission and Anticipated Discharge Date Admission Date: April 30, 2023 Supervising Physician Co-Signing Physician Notes PA Supervision Note: I did not personally see or examine the patient today, but I verified all dillon points of RUFUS Hines's assessment and plan with the following exceptions/additions: None Subjective Patient ambulating independently in room. Reports feeling well, tolerating food without issue. Reports ambulating two laps around the carrasco this morning. Review of Systems Review of Systems: All systems reviewed & are unremarkable except as noted in Subjective Physical Exam Physical Exam: General: NAD, VS as above, ambulating in room, appears well Resp: normal respiratory effort, lungs clear to auscultation. CV: RRR, no murmur, Abd: normal bowel sounds, non tender, no hepatosplenomegaly Back: dressing c/d/i Extremities: Moves all extremities, no edema Results & Data Results & Data Vital Signs (Past 12 Hours) Vital Signs Temp Pulse Resp BP Pulse Ox O2 Del Method 05/02/23 07:00 36.6 C 70 18 109/61 96 Room Air Laboratory Results CBC and chemsitry reviewed PG Care Time/CCT Total # of Minutes Spent Total Time Spent with Patient: Total time spent is greater than 50% in coordination of care (as documented) at patient's floor/unit and/or counseling patient: Coding Level of Care Code 40571 SUB INP/OBS CARE 3/50MIN Diagnoses Status post lumbar spine surgery for decompression of spinal cord Z98.890 Hypertension I10 Type II diabetes mellitus E11.9 Sleep apnea G47.30 Depression F32.9 Thrombocytopenia D69.6
--- NOTE | 2023-05-02 12:04 | Orthopedic Progress Note ---
Date of Service May 02, 2023 Assessment & Plan (1) Status post lumbar spine surgery for decompression of spinal cord: Patient presentation and plan discussed with Dr. Bravo. Overall, she is doing quite well today postoperatively. She has worked with physical therapy and was able to do ambulation and range of motion exercises quite well. She may be discharged home later this morning if she feels comfortable and her pain is well-controlled. She will follow-up with Dr. Bravo in 2 weeks for postopera tive management. Jair Justice was seen and evaluated this morning resting comfortably at bedside no apparent distress. She notes that her pain is much better today than it was yesterday. He is able to get out of bed and ambulate without much issues or discomfort. She has participated well with physical therapy working on ambulation and range of motion exercises. She is hopeful for discharge today. Review of Systems All systems reviewed & are unremarkable except as noted in HPI & below. Physical Exam .On physical examination of the lower lumbar spine, dressings are clean, dry, intact. Her legs are out in full extension bilaterally. Able to do bilateral straight leg raises. Plantarflexion dorsiflexion intact bilaterally at the ankles. +2 DP and PT pulses. Less than 2-second capillary refill. Normal sensation. Neurovascular intact. Results & Data Results & Data Laboratory Results . Diagnostic Findings . PG Care Time/CCT Total # of Minutes Spent Total Time Spent with Patient: Total time spent is greater than 50% in coordination of care (as documented) at patient's floor/unit and/or counseling patient: Coding Level of Care Code 36023 Post Operative Follow-Up Diagnoses Status post lumbar spine surgery for decompression of spinal cord Z98.890
--- NOTE | 2023-05-02 12:08 | Discharge Summary ---
Date of Service May 02, 2023 Principal Diagnosis Same as "Discharge Diagnosis" noted below under Discharge Instructions. Discharge Exam .On physical examination of the lower lumbar spine, dressings are clean, dry, intact. Her legs are out in full extension bilaterally. Able to do bilateral straight leg raises. Plantarflexion dorsiflexion intact bilaterally at the ankles. +2 DP and PT pulses. Less than 2-second capillary refill. Normal sensation. Neurovascular intact. Discharge Data Consultations 04/30/23 16:36 Consult Hospitalist Routine Procedures Performed Operation Date: 04/30/23 07:15 Actual Procedures p Lumbar 4-5 Lateral Interbody Fusion with Posterior Instrumentation, Lumbar Decompression L2-3, L3-4, L4-5, With Local Bone Graft(Not Applicable) - Jose Bravo MD Ordered Studies 04/30/23 07:15 FL lumbar spine 2-3V Routine Hospital Course (1) Status post lumbar spine surgery for decompression of spinal cord: On April 30, [address] [facility], [place] and underwent a lumbar 4-5 lateral interbody fusion with posterior instrumentation with lumbar decompression L2-L3 and L3-L4 and L4-L5 with local bone graft performed by Dr. Bravo with no complications. She had a general anesthetic. Postoperatively, she was transferred to the PACU for immediate postoperative management and then transferred to the general orthopedic floor in stable condition. Her hospital course was uneventful. On postoperative day 1, her vital signs are stable and her pain was well-controlled. She participated well with physical therapy working on ambulation and range of motion exercises. As the morning went on, she did not feel that she would be ready for discharge and felt that she would be more comfortable staying 1 more night with anticipated discharge the next day. No other significant events occurred on this day. On postoperative day #2, her vital signs were stable and her pain was well-controlled. She participa alexandro well with physical therapy working on ambulation and range of motion exercises. She was then discharged home in stable condition. She will follow- up in [address] Bravo for postoperative management. PG Care Time/CCT Total # of Minutes Spent Total Time Spent with Patient: Total time spent is greater than 50% in coordination of care (as documented) at patient's floor/unit and/or counseling patient: Discharge Plan Discharge Items Patient Disposition: Home - Self-Care Reason For Visit: SURGERY Discharge Diagnosis: Same Activity: Per Instructions section Non-emergency contact: Surgeon Call non-emergency contact if: your temperature is above 101.5, your wound has increased redness, your wound has increased drainage and your wound pain has increased Follow-up/Referrals: Danisha Gage CRNP [Primary Care Provider] - Diet: Regular Ambulatory Orders: Basic Metabolic Panel (Routine) Timeframe: 20230505 Location: Determined by Patient Ordered By: Hattie Hines Complete Blood Count no Diff (Timed) Timeframe: 20230505 Location: Determined by Patient Ordered By: Hattie Hines Addtl Attending Provider Instructions: Please follow Dr. Bravo Post Operative Instructions that were given in the office upon scheduling surgery. -Dressings will be changed prior to discharge. -Keep Surgical site dry for the next 3 days. -May shower after 3 days with no soaking of the surgical site -May leave surgical site open to air if dry. -Cover the surgical site with a bandage if draining or getting caught on clothes. -Take it easy for the next 2 weeks. (Ex: No Lifting, running, bending, or twisting, etc.). -You will F/u with Dr. Bravo in 2 weeks for postoperative care. -If any questions or concerns in the mean time, Reach out to [facility] at [phone] Add Senior Radiation Therapist Provider Instructions: Hospital Medicine: - Your blood work on day of discharged showed a low hemoglobin and increased creatinine - I have ordered repeat labs to check on these. Please get these labs done on Sunday or Sunday next week. The results will go to your PCP. - Do NOT take the losartan until you have these lab results back and know that your kidney function is improving - Make sure you are staying hydrated over the next few days - Change positions slowly and monitor if you are feeling lightheaded or dizzy Follow-up appointments: Make an appointment with your primary care physician within one week of discharge. A copy of this summary will be sent to them. Every time you see your primary care physician, or any other doctor, bring your medication list, and a list of questions. CONTACT YOUR PRIMARY CARE PROVIDER if you experience any of the following: Shortness of breath or difficulty breathing Fevers or chills Feeling tired with normal activity or experiencing dizziness or fainting Difficulty following your treatment plan, or difficulty taking medications CALL 911 OR GO TO THE EMERGENCY DEPARTMENT if you experience any of the following: Severe abdominal pain or nausea/vomiting Severe chest pain, or chest pain that radiates (moves) to your jaw or arm Sudden, severe shortness of breath or difficulty breathing Thank you for allowing us to participate in your care. Pending Studies at Discharge: No Stand-Alone Forms: My [facility] [employer], Smoking Cessation Medications and DC Order Prescriptions: New oxycodone-acetaminophen [Percocet] 5-325 mg Tablet 1 tab PO Q6 PRN (Reason: pain) Qty: 28 0RF Continued celecoxib [Celebrex] 100 mg capsule 100 mg PO BID metformin 500 mg tablet 500 mg PO BID Qty: 180 3RF cyclobenzaprine 10 mg tablet 10 mg PO TID PRN (Reason: muscle spasm) Qty: 90 1RF Patient Comments: rarely takes citalopram 40 mg tablet 40 mg PO QAM Qty: 90 3RF citalopram 20 mg tablet 20 mg PO QPM Qty: 90 3RF docusate sodium [Stool Softener] 100 mg capsule 100 mg PO BID prevagen 1 dose PO QAM polyethylene glycol 3350 [ClearLax] 17 gram/dose powder 17 g PO QAM cholecalciferol (vitamin D3) 2,000 unit Tablet 2,000 unit PO QAM montelukast 10 mg tablet 10 mg PO HS PRN (Reason: Allergy Symptoms) rosuvastatin 40 mg tablet 40 mg PO QAM semaglutide 1 mg/dose (4 mg/3 mL) pen injector 1 mg subcut Q7D Patient Comments: sundays Rx Instructions: 1 mg subcutaneously once weekly; Held losartan 50 mg tablet 50 mg PO QAM Qty: 90 3RF Hold Instructions: Resume on 05/08/23. hold until you hear from your PCP regarding your lab results Discharge Orders: Discharge Order (Routine); Ordered 05/02/23 Ordered By: Drake Gonzalez/Other Patient Handouts: Post-Op Tips: Back Admission Data Admit Date/Time: 04/30/23 16:21 Attending Provider: Jose Bravo Admit Provider: Jose Bravo Primary Care Provider: Danisha Gage Other Providers: Kim Todd Other Interventions: Discharge Summary Assessment (RN) Last Done: 05/02/23 11:18
== END 2023-05-02 12:00 | disposition home or self-care (01) | DRG 457 ==
LOC: ASU 05:26 → 3N 16:21

== ENCOUNTER 2023-05-07 17:31 | Observation (INO) ==
[2023-05-07 18:37] LABS: Basophils # (auto) 0.04 K/uL (0.00-0.20); Basophils % (auto) 0.4 %; Eosinophils # (auto) 0.34 K/uL (0.00-0.50); Eosinophils % (auto) 3.7 %; Hematocrit (blood only) 26.9 % (37.0-47.0); Hemoglobin 8.4 g/dl (12.0-16.0); Immature Granulocytes # (auto) 0.11 K/uL (0.01-0.20); Immature Granulocytes % (auto) 1.2 %; Lymphocytes # (auto) 1.36 K/uL (1.20-3.40); Mean Corpuscular Hemoglobin 28.9 pg (25.0-34.0); Mean Corpuscular Hgb Conc 31.2 g/dL (32.0-36.0); Mean Corpuscular Volume 92.4 fL (80.0-100.0); Mean Platelet Volume 10.6 fL (9.4-12.4); Monocytes # (auto) 0.91 K/uL (0.11-0.59); Neutrophils # (auto) 6.31 K/uL (1.40-6.50); Neutrophils % (auto) 69.7 %; Platelet Count 228 K/uL (130-400); RDW Coefficient of Variation 13.8 % (11.5-14.5); Red Blood Count 2.91 M/uL (4.20-5.40); White Blood Count 9.07 K/ul (4.8-10.8)
[2023-05-07 18:51] LABS: Alanine Aminotransferase 16 U/L (7-52); Albumin Globulin Ratio 1.1 (0.9-2); Albumin Level 3.5 gm/dl (3.4-5.0); Alkaline Phosphatase 102 U/L (34-104); Anion Gap 8 (3-11); Aspartate Aminotransferase 21 U/L (13-39); BUN Creatinine Ratio 18.4 (10-20); Bilirubin,Total 0.4 mg/dl (0.2-1.0); Blood Urea Nitrogen 67 mg/dl (6-23); Calcium 9.9 mg/dl (8.6-10.3); Carbon Dioxide 25 mmol/L (21-32); Chloride 102 mmol/L (98-107); Est GFR (African American) 13.9 ml/min; Globulin 3.1 gm/dl (2.5-4.0); Glucose 96 mg/dl (70-99(Fasting)); Potassium 4.8 mmol/L (3.5-5.1); Sodium 135 mmol/L (136-145); Total Protein 6.6 gm/dl (6.0-8.3)
[2023-05-07 19:05] LABS: Partial Thromboplastin Ratio 0.9; Partial Thromboplastin Time 26 Seconds (21-31); Prothrombin Time 10.9 Seconds (9.0-12.0)
[2023-05-07] MEDS: SODIUM CHLORIDE 0.9% 1,000 ML IV ONE (21:15)
--- NOTE | 2023-05-07 21:16 | CT Scan Report ---
Exam(s): CT ABDOMEN + PELVIS Without Contrast EXAM: CT Abdomen and Pelvis Without Intravenous Contrast CLINICAL HISTORY: Reason for exam: MIGEL. TECHNIQUE: Axial computed tomography images of the abdomen and pelvis without intravenous contrast. CTDI is 35.95 mGy and DLP is 1826.28 mGy-cm. Automated exposure control was utilized for the study. A dose lowering technique was utilized adhering to the principles of ALARA. COMPARISON: No relevant prior studies available. FINDINGS: Lung bases: Unremarkable. No mass. No consolidation. ABDOMEN: Liver: RIGHT hepatic low attenuation lesion measures 1.8 cm, which may represent a cyst. Gallbladder and bile ducts: Cholecystectomy. No ductal dilation. Pancreas: Unremarkable. No ductal dilation. Spleen: Unremarkable. No splenomegaly. Adrenals: Unremarkable. No mass. Kidneys and ureters: Unremarkable. No obstructing stones. No hydronephrosis. Stomach and bowel: Diverticulosis, without acute diverticulitis. No small bowel obstruction. No free intraperitoneal air. PELVIS: Appendix: No findings to suggest acute appendicitis. Bladder: Unremarkable. No stones. Reproductive: Hysterectomy. ABDOMEN and PELVIS: Intraperitoneal space: Free air in the RIGHT abdomen, inferior to the liver as well as posterior to the spine and right-sided subcutaneous fat. This is likely secondary to recent spinal surgery. No definite CT evidence of gastrointestinal perforation however, this should be correlated with physical exam. No significant fluid collection. Bones/joints: Posterior lumbar fusion hardware at L4-L5. Overlying cutaneous skin rayna. No acute fracture. No dislocation. Soft tissues: See above. Vasculature: Unremarkable. No abdominal aortic aneurysm. Lymph nodes: Unremarkable. No enlarged lymph nodes. IMPRESSION: 1. Free air in the RIGHT abdomen, inferior to the liver as well as posterior to the spine and right-sided subcutaneous fat. This is likely secondary to recent spinal surgery. No definite CT evidence of gastrointestinal perforation however, this should be correlated with physical exam. 2. Cholecystectomy. 3. Hysterectomy. 4. Posterior lumbar fusion hardware at L4-L5. Overlying cutaneous skin rayna. 5. Diverticulosis, without acute diverticulitis. No small bowel obstruction. No free intraperitoneal air. Electronically signed by: Rene Owusu MD 05/07/23 21:15 PM
--- NOTE | 2023-05-07 21:20 | Emergency Department Note ---
Impression & Plan Acute kidney injury ED Provider Note NAME: HOUSTON DAVIES AGE: 68 SEX: F : 1955 ARRIVES VIA: Walk-In INFORMANT: Patient, ED PROVIDER(S): Pollo Mccarthy MD CHIEF COMPLAINT: MIGEL HPI: This is a 68-year-old female presenting for abnormal blood work. Patient states she had a spinal surgery last week. She was noted to have a slight bump in creatinine last week after surgery. She then had repeat labs done today which showed a worsening of this creatinine. She has had no current symptoms such as flank pain, oliguria, hematuria, chills, fevers, dysuria, urgency or frequency. Patient does report that she has been eating and drinking less since the surgery due to the recovery. As well as pain medicine she is taking. She takes only oxycodone, no NSAIDs. Able to walk otherwise normally. ROS: See above HPI for pertinent positives & negatives. A total of 10 systems reviewed and were otherwise negative. PAST MEDICAL HISTORY: See Below PAST SURGICAL HISTORY: See Below FAMILY HISTORY: See Below SOCIAL HISTORY: See Below HOME MEDICATIONS: See Below ALLERGIES: See Below VITALS: See Below PHYSICAL EXAMINATION: General: resting comfortably in no acute distress Head: Normocephalic and atraumatic Eyes: Normal inspection, extraocular muscles intact Ear, nose, throat: Normal external exam Neck: Normal range of motion Respiratory: lungs clear to auscultation bilaterally Cardiovascular: Regular rate/rhythm, no murmur GI: soft, nontender, no guarding or rebound, well-healing surgical scar posteriorly, rayna in the midline lumbar region as well as right hip Extremities: nontender, moves all extremities Neuro: The patient awake and alert, appropriately conversive, no focal deficits, symmetric faces Skin: Warm, dry, and intact MEDICAL DECISION MAKING: This is a 68-year-old female presenting for abnormal blood work. Patient has a creatinine elevation. Previous baseline was below 1, now 3.6 patient also has a anemia that was noted post surgery but has not significantly changed since discharge. -CT abdomen/pelvis reveals no acute pathology aside from postsurgical free air -Blood work otherwise reveals no electrolyte disturbances, BUN and creatinine are both elevated, no transaminitis. -Will admit for patient's current MIGEL. Will give fluid cessation here, 1 L normal saline. Differential diagnosis: Dehydration, medication side effect, pyelonephritis, obstructive uropathy ER treatment provided: See below Diagnostics interpreted by me: ECG: None Cardiac Monitoring: An order was placed for continuous cardiac monitoring. The monitor shows a rate of 66 with sinus rhythm. Laboratory studies: As stated above and show below. Imaging studies: See below. Past Med/Surg History Medical History (Updated 05/07/23 @ 22:17 by Pollo Mccarthy MD) Lumbosacral facet joint syndrome Type II diabetes mellitus Semaglutide weekly Morbid obesity Depression Sleep apnea CPAP (compliant) Osteoarthritis Hyperlipidemia Hypertension Surgical History (Updated 04/30/23 @ 18:30 by Michael Escamilla PA-C) History of carpal tunnel surgery of left wrist H/O tubal ligation H/O: section Hx of colonoscopy History of carpal tunnel surgery of right wrist Hx of breast reduction, elective Hx of hysterectomy, total History of bilateral knee replacement History of cholecystectomy Family History Mother Hypertension Ovarian cancer Depression Father Alcohol abuse Kidney stones Brother Rheumatoid arthritis Depression Denies family history of Sudden SIDS (sudden infant syndrome) Prostate cancer Diabetes Deep vein thrombosis Osteoporosis Coronary heart disease Dyslipidemia Cerebral aneurysm Alzheimer disease Bipolar disorder Clotting disorder Crohn's disease Dementia Heart disease Kidney disease Myocardial infarction Osteoarthritis Breast cancer Schizophrenia Congenital kidney disease Gestational diabetes Lung cancer COPD (chronic obstructive pulmonary disease) Colorectal cancer Pulmonary embolism Lung disease Cancer Ulcerative colitis Colonic polyp Stroke Asthma Cystic kidney disease Social History Smoking Status: Never smoker Second Hand Exposure: No; Do You Dip or Chew Tobacco: No; Hx Alcohol Use: No Hx Substance Use: No Preferred Language: Burundian Communication Ability: Effective Visual Impairment: No Limitations Hearing Ability: Normal Reed Dipper Required: No Beliefs That Will Affect Care: None marital status: Current Living Situation: Spouse 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 Children do You have: 1 Feels Safe at Home: Yes Childhood Exposure to Second-Hand Smoke: No Diet: regular caffeine: Yes (iced tea) during the past year weight has: increased > 10 lbs Dental Care, Regularly: Yes Physical Activity Frequency: Does not Exercise Seatbelt Use: always Sunscreen Use: No Assistive Devices: Cane and Walker Allergies Allergies Allergy/AdvReac Type Severity Reaction Status Date / Time Sulfa (Sulfonamide Allergy Intermediate Hives Verified 05/07/23 21:45 Antibiotics) Home Meds Home Medications Medication Instructions Recorded Confirmed cholecalciferol (vitamin D3) 50 2,000 unit PO QAM 02/06/18 05/07/23 mcg (2,000 unit) tablet docusate sodium 100 mg capsule 100 mg PO BID 07/30/19 05/07/23 (Stool Softener) polyethylene glycol 3350 17 17 g PO QAM Constipation 04/21/20 05/07/23 gram/dose oral powder (ClearLax) prevagen 1 dose PO QAM 05/15/22 05/07/23 celecoxib 100 mg capsule (Celebrex) 100 mg PO BID 01/05/23 05/07/23 montelukast 10 mg tablet 10 mg PO HS PRN Allergy Symptoms 03/30/23 05/07/23 rosuvastatin 40 mg tablet 40 mg PO QAM 03/30/23 05/07/23 semaglutide 1 mg/dose (4 mg/3 mL) 1 mg subcut WK 03/30/23 05/07/23 subcutaneous pen injector Previous Rx's Medication Instructions Recorded metformin 500 mg tablet 500 mg PO BID #180 tabs 05/31/22 losartan 50 mg tablet 50 mg PO QAM #90 tabs 11/06/22 cyclobenzaprine 10 mg tablet 10 mg PO TID PRN muscle spasm #90 01/01/23 tabs citalopram 20 mg tablet 20 mg PO QPM #90 tabs 03/05/23 citalopram 40 mg tablet 40 mg PO QAM #90 tabs 03/05/23 oxycodone-acetaminophen 5 mg-325 1 tab PO Q6 PRN pain #28 tabs 05/01/23 mg tablet (Percocet) Results & Data (ED) Vital Signs Vital Signs - 24 hr 05/07/23 18:01 05/07/23 20:45 Temperature 36.5 C Temperature Source Temporal Artery Scan Pulse Rate 59 L 66 Respiratory Rate 18 Respiratory Effort / Characteristics Non-Labored Spontaneous Respiratory Depth Normal Blood Pressure 136/79 Blood Pressure Mean 98 Pulse Oximetry 96 Oxygen Delivery Method Room Air Sepsis Recent Fever Within 48 Hours No Sepsis New/Unexplained Change in Mental Status No Sepsis Action Taken by Nursing No Action Required Laboratory Data 05/07/23 18:15 05/07/23 18:15 Lab Results 05/07/23 Range/Units 18:15 WBC 9.07 (4.8-10.8) K/ul RBC 2.91 L (4.20-5.40) M/uL Hgb 8.4 L (12.0-16.0) g/dl Hct 26.9 L (37.0-47.0) % MCV 92.4 (80.0-100.0) fL MCH 28.9 (25.0-34.0) pg MCHC 31.2 L (32.0-36.0) g/dL RDW Std Deviation 47.0 H (36.4-46.3) fL RDW Coeff of Jeronimo 13.8 (11.5-14.5) % Plt Count 228 (130-400) K/uL MPV 10.6 (9.4-12.4) fL Immature Gran % (Auto) 1.2 % Neut % (Auto) 69.7 % Lymph % (Auto) 15.0 % Towner % (Auto) 10.0 % Eos % (Auto) 3.7 % Baso % (Auto) 0.4 % Neut # (Auto) 6.31 (1.40-6.50) K/uL Lymph # (Auto) 1.36 (1.20-3.40) K/uL Towner # (Auto) 0.91 H (0.11-0.59) K/uL Eos # (Auto) 0.34 (0.00-0.50) K/uL Baso # (Auto) 0.04 (0.00-0.20) K/uL Immature Gran # (Auto) 0.11 (0.01-0.20) K/uL PT 10.9 (9.0-12.0) Seconds INR 1.0 (0.9-1.1) APTT 26 (21-31) Seconds PTT Ratio 0.9 Sodium 135 L (136-145) mmol/L Potassium 4.8 (3.5-5.1) mmol/L Chloride 102 (98-107) mmol/L Carbon Dioxide 25 (21-32) mmol/L Anion Gap 8 (3-11) BUN 67 H (6-23) mg/dl Creatinine 3.64 H (0.6-1.2) mg/dl Est Cr Clr Drug Dosing Not Reportable Est GFR ( Amer) 13.9 ml/min Est GFR (Non-Af Amer) 12.0 ml/min BUN/Creatinine Ratio 18.4 (10-20) Glucose 96 (70-99(Fasting)) mg/dl Calcium 9.9 (8.6-10.3) mg/dl Total Bilirubin 0.4 (0.2-1.0) mg/dl AST 21 (13-39) U/L ALT 16 (7-52) U/L Alkaline Phosphatase 102 (34-104) U/L Total Protein 6.6 (6.0-8.3) gm/dl Albumin 3.5 (3.4-5.0) gm/dl Globulin 3.1 (2.5-4.0) gm/dl Albumin/Globulin Ratio 1.1 (0.9-2) Administered Medications Discontinued Medications Sodium Chloride (Nss) 1,000 mls @ 999 mls/hr IV .Q1H1M ONE Stop: 05/07/23 22:15 Last Admin: 05/07/23 21:15 Dose: 999 mls/hr Documented By: JEREMY Imaging Data Radiologist's Impression: Abdomen/Pelvis CT 05/07/23 19:06 Exam(s): CT ABDOMEN + PELVIS Without Contrast EXAM: CT Abdomen and Pelvis Without Intravenous Contrast CLINICAL HISTORY: Reason for exam: MIGEL. TECHNIQUE: Axial computed tomography images of the abdomen and pelvis without intravenous contrast. CTDI is 35.95 mGy and DLP is 1826.28 mGy-cm. Automated exposure control was utilized for the study. A dose lowering technique was utilized adhering to the principles of ALARA. COMPARISON: No relevant prior studies available. FINDINGS: Lung bases: Unremarkable. No mass. No consolidation. ABDOMEN: Liver: RIGHT hepatic low attenuation lesion measures 1.8 cm, which may represent a cyst. Gallbladder and bile ducts: Cholecystectomy. No ductal dilation. Pancreas: Unremarkable. No ductal dilation. Spleen: Unremarkable. No splenomegaly. Adrenals: Unremarkable. No mass. Kidneys and ureters: Unremarkable. No obstructing stones. No hydronephrosis. Stomach and bowel: Diverticulosis, without acute diverticulitis. No small bowel obstruction. No free intraperitoneal air. PELVIS: Appendix: No findings to suggest acute appendicitis. Bladder: Unremarkable. No stones. Reproductive: Hysterectomy. ABDOMEN and PELVIS: Intraperitoneal space: Free air in the RIGHT abdomen, inferior to the liver as well as posterior to the spine and right-sided subcutaneous fat. This is likely secondary to recent spinal surgery. No definite CT evidence of gastrointestinal perforation however, this should be correlated with physical exam. No significant fluid collection. Bones/joints: Posterior lumbar fusion hardware at L4-L5. Overlying cutaneous skin rayna. No acute fracture. No dislocation. Soft tissues: See above. Vasculature: Unremarkable. No abdominal aortic aneurysm. Lymph nodes: Unremarkable. No enlarged lymph nodes. IMPRESSION: 1. Free air in the RIGHT abdomen, inferior to the liver as well as posterior to the spine and right-sided subcutaneous fat. This is likely secondary to recent spinal surgery. No definite CT evidence of gastrointestinal perforation however, this should be correlated with physical exam. 2. Cholecystectomy. 3. Hysterectomy. 4. Posterior lumbar fusion hardware at L4-L5. Overlying cutaneous skin rayna. 5. Diverticulosis, without acute diverticulitis. No small bowel obstruction. No free intraperitoneal air. Electronically signed by: Rene Owusu MD 05/07/23 21:15 PM Discharge Plan Visit Data Chief Complaint: Abnormal Labs/Diagnostic Testing Stated Complaint: ABNORMAL BLOOD TESTS, REF BY DOC ED Provider: Pollo Mccarthy Discharge Problem: Acute kidney injury Forms Stand Alone Forms: My [facility] [place] [employer] Prescriptions Prescriptions: No Action celecoxib [Celebrex] 100 mg capsule 100 mg PO BID metformin 500 mg tablet 500 mg PO BID Qty: 180 3RF losartan 50 mg tablet 50 mg PO QAM Qty: 90 3RF Hold Instructions: Resume on 05/08/23. hold until you hear from your PCP regarding your lab results Rx Instructions: ON HOLD cyclobenzaprine 10 mg tablet 10 mg PO TID PRN (Reason: muscle spasm) Qty: 90 1RF Patient Comments: rarely takes citalopram 40 mg tablet 40 mg PO QAM Qty: 90 3RF citalopram 20 mg tablet 20 mg PO QPM Qty: 90 3RF docusate sodium [Stool Softener] 100 mg capsule 100 mg PO BID prevagen 1 dose PO QAM polyethylene glycol 3350 [ClearLax] 17 gram/dose powder 17 g PO QAM cholecalciferol (vitamin D3) 2,000 unit Tablet 2,000 unit PO QAM montelukast 10 mg tablet 10 mg PO HS PRN (Reason: Allergy Symptoms) rosuvastatin 40 mg tablet 40 mg PO QAM semaglutide 1 mg/dose (4 mg/3 mL) pen injector 1 mg subcut WK Patient Comments: sundays Rx Instructions: SUNDAYS oxycodone-acetaminophen [Percocet] 5-325 mg Tablet 1 tab PO Q6 PRN (Reason: pain) Qty: 28 0RF Referrals Referrals: Danisha Gage CRNP [Primary Care Provider] -
--- NOTE | 2023-05-07 21:39 | History & Physical Report ---
"Date of Service May 07, 2023 Assessment & Plan (1) Acute kidney injury: (2) Acute blood loss anemia: (3) Depression: (4) Status post lumbar spine surgery for decompression of spinal cord: (5) Vitamin D insufficiency: (6) Anxiety: (7) Type II diabetes mellitus: (8) Sleep apnea: (9) Hypertension: (10) Hyperlipidemia: Plan Summary: Reshma is a 68F w/ PMH of HLD, HTN, ROSS, TII DM, thrombocytopenia, depression/anxiety, lumbar spinal stenosis/chronic LBP, and class III obesity who presented to the ED for abnormal labs and was found to be anemic w/ an MIGEL. Patient recently had spinal surgery 05/01/23, was discharged with asymptomatic Hgb of 8.7. ED Course: S/p 1L NSS Acute Kidney Injury * Baseline 1.16, elevated to 1.36 post surgery, now 3.64 * S/p 1L NSS in ED with improvement of Cr * No known history of CKD, but patient does have DM2 * Patient endorses poor PO intake and hydration due to lack of appetite * Continue @ 200 cc for 1.5 x mIVF * Hold nephrotoxic agents Anemia * Baseline 11.3-11.7, patient 8.7 post surgery, now 8.4 * Hemodynamically stable * Likely 2/2 recent surgery/acute blood loss anemia * Patient denies any hematuria, hematemesis, or hematochezia/melena * Start GI Ppx w/ Protonic 40mg PO BID * Hemoccult all stools * Patient remains asymptomatic * Transfuse for Hgb <7, or symptomatic anemia Recent Spinal Surgery | Chronic Low Back Pain * Spinal Surgery 05/01/23: Lumbar 4-5 Lateral Interbody Fusion with Posterior Instrumentation, Lumbar Decompression L2-3, L3-4, L4-5, With Local Bone Graft * Procedure performed due to Scoliosis of Lumbar Region Due to Degenerative Disease * Patient discharged 05/02/23 asymptomatic w/ close follow up labs * Pain management noted to be adequate at home * Hold Celebrex and Cyclobenzaprine d/t MIGEL, continue Percocet, ordered Dilaudid 0.25 for breakthrough pain Chronic Conditions: * HLD: hold statin * HTN: hold Losartan * ROSS: may use home CPAP * T2DM: hold metformin and Ozempic, SSI and BSG checks ACHS ordered * Depression/Anxiety: continue Citalopram Code Status:Full Diet:T2DM IVF:1.5 x mIVF DVT PPx:SCD CM: None Dispo: Med Surg History of Present Illness Chief Complaint: Abnormal Labs Primary Care Provider: VICTOR HUGO Goodwin is a 68F w/ PMH of HLD, HTN, ROSS, TII DM, thrombocytopenia, depression/anxiety, lumbar spinal stenosis/chronic LBP, and class III obesity who presented to the ED for abnormal labs and was found to be anemic w/ an MIGEL. Patient recently had spinal surgery 05/01/23, was discharged with asymptomatic Hgb of 8.7. ED Course: S/p 1L NSS Patient notes that she is overall feeling well and only presented due to abnormal labs outpatient. She states that since her surgery she has had a poor appetite and has not been able to eat more than cottage cheese and occasional fruit. Furthermore, her only source of hydration is the 40-60 ounces of iced tea she drinks in a day. Patient endorses good pain control with home regimen. She denies chest pain, dyspnea, nausea, emesis, lightheadedness, dizziness or bowel/bladder changes. She notes that she urinates 4-5 times a day, clear-yellow urine. She has not had any hematuria, hematochezia, or melena. She has moved her bowels multiple times since surgery. Patient has a history of T2DM for which she takes Ozempic (started in December) and Metformin, but has no known history of CKD. Allergies Allergy/AdvReac Type Severity Reaction Status Date / Time Sulfa (Sulfonamide Allergy Intermediate Hives Verified 05/07/23 21:45 Antibiotics) Home Medications Medication Instructions Recorded Confirmed Type cholecalciferol (vitamin D3) 50 2,000 unit PO QAM 02/06/18 05/07/23 History mcg (2,000 unit) tablet docusate sodium 100 mg capsule 100 mg PO BID 07/30/19 05/07/23 History (Stool Softener) polyethylene glycol 3350 17 17 g PO QAM Constipation 04/21/20 05/07/23 History gram/dose oral powder (ClearLax) prevagen 1 dose PO QAM 05/15/22 05/07/23 History metformin 500 mg tablet 500 mg PO BID #180 tabs 05/31/22 05/07/23 Rx losartan 50 mg tablet 50 mg PO QAM #90 tabs 11/06/22 05/07/23 Rx cyclobenzaprine 10 mg tablet 10 mg PO TID PRN muscle spasm #90 01/01/23 05/07/23 Rx tabs celecoxib 100 mg capsule (Celebrex) 100 mg PO BID 01/05/23 05/07/23 History citalopram 20 mg tablet 20 mg PO QPM #90 tabs 03/05/23 05/07/23 Rx citalopram 40 mg tablet 40 mg PO QAM #90 tabs 03/05/23 05/07/23 Rx montelukast 10 mg tablet 10 mg PO HS PRN Allergy Symptoms 03/30/23 05/07/23 History rosuvastatin 40 mg tablet 40 mg PO QAM 03/30/23 05/07/23 History semaglutide 1 mg/dose (4 mg/3 mL) 1 mg subcut WK 03/30/23 05/07/23 History subcutaneous pen injector oxycodone-acetaminophen 5 mg-325 1 tab PO Q6 PRN pain #28 tabs 05/01/23 05/07/23 Rx mg tablet (Percocet) Past Med/Surg History Medical History (Updated 05/07/23 @ 22:17 by Pollo Mccarthy MD) Lumbosacral facet joint syndrome Type II diabetes mellitus Semaglutide weekly Morbid obesity Depression Sleep apnea CPAP (compliant) Osteoarthritis Hyperlipidemia Hypertension Surgical History (Updated 04/30/23 @ 18:30 by Michael Escamilla PA-C) History of carpal tunnel surgery of left wrist H/O tubal ligation H/O: section Hx of colonoscopy History of carpal tunnel surgery of right wrist Hx of breast reduction, elective Hx of hysterectomy, total History of bilateral knee replacement History of cholecystectomy Family History Mother Hypertension Ovarian cancer Depression Father Alcohol abuse Kidney stones Brother Rheumatoid arthritis Depression Denies family history of Sudden SIDS (sudden infant syndrome) Prostate cancer Diabetes Deep vein thrombosis Osteoporosis Coronary heart disease Dyslipidemia Cerebral aneurysm Alzheimer disease Bipolar disorder Clotting disorder Crohn's disease Dementia Heart disease Kidney disease Myocardial infarction Osteoarthritis Breast cancer Schizophrenia Congenital kidney disease Gestational diabetes Lung cancer COPD (chronic obstructive pulmonary disease) Colorectal cancer Pulmonary embolism Lung disease Cancer Ulcerative colitis Colonic polyp Stroke Asthma Cystic kidney disease Social History Smoking Status: Never smoker Second Hand Exposure: No; Do You Dip or Chew Tobacco: No; Hx Alcohol Use: No Hx Substance Use: No Preferred Language: Panamanian Communication Ability: Effective Visual Impairment: No Limitations Hearing Ability: Normal Zoology Technical Officer Required: No Beliefs That Will Affect Care: None marital status: Current Living Situation: Spouse 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 Children do You have: 1 Feels Safe at Home: Yes Safety Concerns: Feels Safe At This Time Childhood Exposure to Second-Hand Smoke: No Diet: regular caffeine: Yes (iced tea) during the past year weight has: increased > 10 lbs Dental Care, Regularly: Yes Physical Activity Frequency: Does not Exercise Seatbelt Use: always Sunscreen Use: No Assistive Devices: Raised Toilet Seat and Walker Physical Exam Physical Exam: Gen: NAD, alert, interactive HEENT: Supple, no LAD, no thyromegaly, no JVD Resp:Non-labored, no wheezing/rhonchi/rales, CTAB CV:RRR, normal S1/S2, 2/6 systolic murmur Abd: Soft, non-distended, no TTP, normoactive bowels, no masses Extr: 2+ dp bilaterally, no edema Skin: No rashes lesions or erythema Back: Midline incision present over lumbar spine, rayna intact, minimal surrounding erythema, no purulence, scant serous drainage Results & Data Results & Data Vital Signs (Past 12 Hours) Vital Signs Temp Pulse Resp BP Pulse Ox O2 Del Method 04/01/24 20:45 66 05/07/23 18:01 36.5 C 59 L 18 136/79 96 Room Air Supervising Physician Co-Signing Physician Notes Attending addendum: I have physically seen this patient, have supervised the medical residents activities, and agree with the H&P unless as otherwise noted. Assessment and Plan: Acute kidney injury superimposed on CKD- Creatinine 3.64, with base range 1.16-1.36 Hold Celebrex, continue to hold losartan Status post 1 L normal saline bolus from the ED Continue IV fluids as noted Repeat laboratories in a.m. Likely contributing factors: decreased oral intake due to lack of appetite and use of Celebrex, semaglutide Anemia- Hemoglobin 8.4, with base presurgery 11 Hemoccult stools Started Protonix as noted Type and screen Diabetes mellitus- Hold metformin and semaglutide Placed on Accu-Cheks with NovoLog SSI Status post spinal surgery 05/01/2023 Continue current pain management, except holding Celebrex and cyclobenzaprine Percocet for moderate pain, Dilaudid for severe breakthrough pain Resident Activity Tracking Resident Involvement: Resident Care Provided Care Provided: Adult Hospital Medicine (night)"
[2023-05-07] MEDS ORDERED: CARBOHYDRATES FOR HYPOGLYCEMIA PO PRN (23:12)
[2023-05-07] MEDS ORDERED: GLUCOSE 10 TAB/TUBE PO PRN (23:12)
[2023-05-07] MEDS ORDERED: GLUCAGON FOR INJ 1 MG VIAL SQ PRN (23:12)
[2023-05-07] MEDS ORDERED: HYDROmorphone INJ 0.5 MG/0.5 ML SYR IV PRN (23:12)
[2023-05-07] MEDS ORDERED: ONDANSETRON INJ 2 MG/ML 2 ML VIAL IV PRN (23:12)
[2023-05-07] MEDS ORDERED: POLYETHYLENE (MIRALAX) 17 GM PACK PO PRN (23:12)
[2023-05-07] MEDS ORDERED: GLUCOSE 40% GEL 15 GM TUBE PO PRN (23:12)
[2023-05-07] MEDS ORDERED: DEXTROSE 50% 50 ML SYRINGE IV PRN (23:12)
[2023-05-07] MEDS: SODIUM CHLORIDE 0.9% 1,000 ML IV SCH (23:30)
[2023-05-08] MEDS: PANTOprazole 40 MG TAB PO SCH (00:10)
[2023-05-08] MEDS: oxyCODONE/ACETAMINOPHEN 5mg/325mg TAB PO PRN (00:14)
[2023-05-08 02:47] LABS: Appearance Urine Clear (Clear); Bacteria Urine Automated Negative (Negative); Bilirubin Urine Negative (Negative); Blood Urine 1+ (Negative); Color Urine Yellow; Epithelial Cell Urine Auto >30 /lpf (0-5); Glucose Urine UA Negative (Negative); Ketones Urine Negative (Negative); Leukocyte Esterase Urine 2+ (Negative); Nitrite Urine Negative (Negative); Protein Urine Trace (Negative); RBC Urine Automated 0-4 /hpf (0-4); Specific Gravity Urine 1.007 (1.000-1.030); Urobilinogen Urine Negative (Negative)
[2023-05-08] MEDS: POLYETHYLENE (MIRALAX) 17 GM PACK PO SCH (08:12)
[2023-05-08] MEDS: CITALOPRAM 40 MG TAB PO SCH (08:12)
[2023-05-08] MEDS: CHOLECALCIFEROL 25 MCG (1000 UNITS) TAB PO SCH (08:12)
[2023-05-08] MEDS: INSULIN ASPART PER UNIT CHARGE SC SCH (08:16)
[2023-05-08] MEDS: DOCUSATE SODIUM 100 MG CAP PO SCH (08:17)
--- NOTE | 2023-05-08 08:24 | Hospitalist Progress Note ---
"Date of Service May 08, 2023 Assessment & Plan (1) Acute kidney injury: Plan: Summary: Reshma is a 68F w/ PMH of HLD, HTN, ROSS, TII DM, thrombocytopenia, depression/anxiety, lumbar spinal stenosis/chronic LBP, and class III obesity who presented to the ED for abnormal labs and was found to be anemic w/ an MIGEL with Cr 3.64 -Patient recently had spinal surgery 05/01/23, was discharged with asymptomatic Hgb of 8.7. -Does have hx GNB/right pyelonephritis June 2022, however unclear if back pain masking any underlying urine infection/CVA tenderness - Urine cx pending, f/u Acute Kidney Injury Baseline 1.16, elevated to 1.36 post surgery, now 3.64 . Patient endorses poor PO intake and hydration due to lack of appetite, also endorses taking her OZEMPIC ON SUNDAY, likely contributing to poor PO intake/diarrheal losses s/p 1L NSS in ER, 2L ordered on admission --> Cr 3.64 to 3.18 on repeat Added NS @ 80cc/hr for now, reports making good urine, yellow in color. UA not overly infected appearing but did have gutierrez w/ her back surgery --> F/u urine cx, no abx at present time Monitor UOP, f/u urine cx. Will add blood cultures given prior bacteremia from urine source in case of need for antibiotics but WBC wnl and afebrile at this time Avoid nephrotoxins, renal dose meds as able Hold home losartan (suspect likely had some hypotension at home given reports of lightheadedness at home, none further reported but can check orthostatic VS) Celebrex also placed on hold as well as Flexeril Monitor CBC, BMP on repeat (2) Acute blood loss anemia: Plan: Baseline 11.3-11.7 PRIOR TO BACK SURGERY --> hgb 8.7 post surgery at discharge, was 8.4 on admission Likely 2/2 recent surgery/acute blood loss anemia from surgery/dilutional from IVF however ongoing Patient denies any hematuria, hematemesis, or hematochezia/melena Started GI Ppx w/ Protonic 40mg PO BID Fecal occult ordered Transfuse hgb <7 Hgb 7.8 however did receive 3L IVF as outlined above and will monitor for any bleeding. Continue PPI BID and monitor fecal occult. TSH wnl Check iron studies for completeness, Venofer if indicated/urine negative add B12/folate to AM labs CBC in AM (3) Status post lumbar spine surgery for decompression of spinal cord: Plan: Recent Spinal Surgery | Chronic Low Back Pain Spinal Surgery 05/01/23: Lumbar 4-5 Lateral Interbody Fusion with Posterior Instrumentation, Lumbar Decompression L2-3, L3-4, L4-5, With Local Bone Graft Procedure performed due to Scoliosis of Lumbar Region Due to Degenerative Disease Patient discharged 05/02/23 asymptomatic w/ close follow up labs Hold Celebrex and Cyclobenzaprine d/t MIGEL, continue Percocet, ordered Dilaudid 0 .25 for breakthrough pain Pain management noted to be adequate at home, currently stable and will monitor (4) Type II diabetes mellitus: Plan: hold metformin and Ozempic, SSI and BSG checks ACHS ordered Discussed w/ patient about holding her Ozempic at dc and discussing w/ PCP prior to resuming B12 w/ AM labs (5) Hypertension: Plan: HTN: BP stable 117/68 at present, borderline at dc 109/61 and reported some lighthead edness at home (however no darkened/tea color urine to suggest ATN) Home losartan on hold given MIGEL as above/borderline BPs Monitor (6) Hyperlipidemia: Plan: hold statin (7) Sleep apnea: Plan: may use home CPAP, ordered HS (8) Depression: Plan: continue Citalopram (9) Vitamin D insufficiency: (10) Anxiety: Plan DVT Proph: SCDs for now, will hold off chemoproph given anemia as above. Ambulation encouraged Dispo: possible dc tomorrow if renal function improved/hemoglobin stable Admission and Anticipated Discharge Date Admission Date: May 07, 2023 Supervising Physician Co-Signing Physician Notes The patient was not seen by me. The chart was reviewed. Case discussed with RUFUS Locke. Agree with assessment and plan Subjective Evaluated this morning, at bedside. She reports she is not entirely sure why she is admitted except being called by Danisha Mcintosh's nurse with worsening labs and send to ER. Did report some lightheadedness at home but no BP checks/no hypotension on admission. She reports she had not taken much PO since discharge from hospital. Last injection Ozempic on sunday. Discussed was prior to her surgery prior to restarting after surgery and would hold off for now until discussed given new med end of last year and risk for worsened renal function with reduced PO intake. Denies any bleeding. Back pain improved from surgery, had moved bowels at home but not since admission. No increased abdominal pain reported or significant NSAID use or bleeding reported. Hgb 7.8 after IVF and denies CP or SOB at present, 94% on RA. Denied any urinary symptoms but does have hx pyelonephritis however hard to dicern back pain from incision vs from kidney however denied any burning with urination however did note she had a gutierrez with her surgery and will await urine culture for eval. Reports urine yellow in color. Discussed continued IVF and if continued UOP acceptable w/ improvement in renal function will consider dc tomorrow. Physical Exam Physical Exam: General: 68yo female sitting up in bed, at bedside, NAD HEENT; head atraumatic, normocephalic, mm slightly dry, trachea midline Resp: even/unlabored, slightly diminished in the bases, on room air CV: RRR, +systolic murmur, no pitting edema GI:+ BS throughout, slight distension, nontender, no guarding/rebound : no gutierrez, no overt CVA tenderness MSK/Neuro: lumbar dressing w/ rayna intact, mild surrounding erythema but no active drainage Psych: AOx3, cooperative with exam Results & Data Results & Data Vital Signs (Past 12 Hours) Vital Signs Temp Pulse Pulse Resp BP BP Pulse Ox 05/08/23 07:17 36.5 C 67 16 117/68 94 05/07/23 23:00 36.9 C 72 18 162/68 H 95 05/07/23 22:30 126/57 L 05/07/23 22:30 68 17 05/07/23 22:00 122/56 L 05/07/23 22:00 66 19 93 05/07/23 21:30 127/55 L 05/07/23 21:30 66 21 94 05/07/23 21:16 143/63 H 05/07/23 21:16 70 19 05/07/23 21:00 64 19 05/07/23 20:45 66 17 05/07/23 20:45 66 O2 Del Method 05/08/23 07:17 Room Air 05/07/23 23:00 Room Air 05/07/23 22:30 05/07/23 22:30 05/07/23 22:00 05/07/23 22:00 Room Air 05/07/23 21:30 05/07/23 21:30 05/07/23 21:16 05/07/23 21:16 05/07/23 21:00 05/07/23 20:45 05/07/23 20:45 Laboratory Results 05/08/23 05/08/23 05/08/23 Range/Units 09:03 07:56 02:25 WBC 8.59 (4.8-10.8) K/ul RBC 2.75 L (4.20-5.40) M/uL Hgb 7.8 L (12.0-16.0) g/dl Hct 25.3 L (37.0-47.0) % MCV 92.0 (80.0-100.0) fL MCH 28.4 (25.0-34.0) pg MCHC 30.8 L (32.0-36.0) g/dL RDW Std Deviation 46.0 (36.4-46.3) fL RDW Coeff of [place] 13.7 (11.5-14.5) % Plt Count 214 (130-400) K/uL MPV 10.4 (9.4-12.4) fL Immature Gran % (Auto) 0.9 % Neut % (Auto) 72.6 % Lymph % (Auto) 12.8 % [place] % (Auto) 8.8 % Eos % (Auto) 4.3 % Baso % (Auto) 0.6 % Neut # (Auto) 6.23 (1.40-6.50) K/uL Lymph # (Auto) 1.10 L (1.20-3.40) K/uL [place] # (Auto) 0.76 H (0.11-0.59) K/uL Eos # (Auto) 0.37 (0.00-0.50) K/uL Baso # (Auto) 0.05 (0.00-0.20) K/uL Immature Gran # (Auto) 0.08 (0.01-0.20) K/uL Polychromasia 1+ PT (9.0-12.0) Seconds INR (0.9-1.1) APTT (21-31) Seconds PTT Ratio Sodium 138 (136-145) mmol/L Potassium 4.2 (3.5-5.1) mmol/L Chloride 108 H (98-107) mmol/L Carbon Dioxide 21 (21-32) mmol/L Anion Gap 9 (3-11) BUN 62 H (6-23) mg/dl Creatinine 3.18 H D (0.6-1.2) mg/dl Est Cr Clr Drug Dosing 18.2 Est GFR ( Amer) 16.3 ml/min Est GFR (Non-Af Amer) 14.1 ml/min BUN/Creatinine Ratio 19.5 (10-20) Glucose 114 H (70-99(Fasting)) mg/dl POC Glucose 103 H (70-99) mg/dl Calcium 9.3 (8.6-10.3) mg/dl Magnesium 1.9 (1.7-2.4) mg/dl Iron 22 L (35-150) mcg/dl TIBC 210 L (250-450) mcg/dl Unsaturated IBC 188 (155-355) mcg/dl Transferrin % Sat 10 L (15-50) % Ferritin Pending Total Bilirubin 0.4 (0.2-1.0) mg/dl AST 18 (13-39) U/L ALT 14 (7-52) U/L Alkaline Phosphatase 96 (34-104) U/L Total Protein 5.9 L (6.0-8.3) gm/dl Albumin 3.2 L (3.4-5.0) gm/dl Globulin 2.7 (2.5-4.0) gm/dl Albumin/Globulin Ratio 1.2 (0.9-2) Procalcitonin 0.35 (0-0.5) ng/ml Urine Color Yellow Urine Appearance Clear (Clear) Urine pH 5.0 (4.5-7.5) Ur Specific [place] 1.007 (1.000-1.030) Urine Protein Trace H (Negative) Urine Glucose (UA) Negative (Negative) Urine Ketones Negative (Negative) Urine Blood 1+ H (Negative) Urine Nitrite Negative (Negative) Urine Bilirubin Negative (Negative) Urine Urobilinogen Negative (Negative) Ur Leukocyte Esterase 2+ H (Negative) Urine WBC (Auto) 5-10 H (0-5) /hpf Urine RBC (Auto) 0-4 (0-4) /hpf U Hyaline Cast (Auto) 1-5 (0-5) /lpf U Epithel Cells (Auto) >30 H (0-5) /lpf Urine Bacteria (Auto) Negative (Negative) Urine Yeast Budding A (None Prsent) 05/07/23 Range/Units 18:15 WBC 9.07 (4.8-10.8) K/ul RBC 2.91 L (4.20-5.40) M/uL Hgb 8.4 L (12.0-16.0) g/dl Hct 26.9 L (37.0-47.0) % MCV 92.4 (80.0-100.0) fL MCH 28.9 (25.0-34.0) pg MCHC 31.2 L (32.0-36.0) g/dL RDW Std Deviation 47.0 H (36.4-46.3) fL RDW Coeff of [place]onimo 13.8 (11.5-14.5) % Plt Count 228 (130-400) K/uL MPV 10.6 (9.4-12.4) fL Immature Gran % (Auto) 1.2 % Neut % (Auto) 69.7 % Lymph % (Auto) 15.0 % [place] % (Auto) 10.0 % Eos % (Auto) 3.7 % Baso % (Auto) 0.4 % Neut # (Auto) 6.31 (1.40-6.50) K/uL Lymph # (Auto) 1.36 (1.20-3.40) K/uL [place] # (Auto) 0.91 H (0.11-0.59) K/uL Eos # (Auto) 0.34 (0.00-0.50) K/uL Baso # (Auto) 0.04 (0.00-0.20) K/uL Immature Gran # (Auto) 0.11 (0.01-0.20) K/uL Polychromasia PT 10.9 (9.0-12.0) Seconds INR 1.0 (0.9-1.1) APTT 26 (21-31) Seconds PTT Ratio 0.9 Sodium 135 L (136-145) mmol/L Potassium 4.8 (3.5-5.1) mmol/L Chloride 102 (98-107) mmol/L Carbon Dioxide 25 (21-32) mmol/L Anion Gap 8 (3-11) BUN 67 H (6-23) mg/dl Creatinine 3.64 H (0.6-1.2) mg/dl Est Cr Clr Drug Dosing Not Reportable Est GFR ( Amer) 13.9 ml/min Est GFR (Non-Af Amer) 12.0 ml/min BUN/Creatinine Ratio 18.4 (10-20) Glucose 96 (70-99(Fasting)) mg/dl POC Glucose (70-99) mg/dl Calcium 9.9 (8.6-10.3) mg/dl Magnesium (1.7-2.4) mg/dl Iron (35-150) mcg/dl TIBC (250-450) mcg/dl Unsaturated IBC (155-355) mcg/dl Transferrin % Sat (15-50) % Ferritin Total Bilirubin 0.4 (0.2-1.0) mg/dl AST 21 (13-39) U/L ALT 16 (7-52) U/L Alkaline Phosphatase 102 (34-104) U/L Total Protein 6.6 (6.0-8.3) gm/dl Albumin 3.5 (3.4-5.0) gm/dl Globulin 3.1 (2.5-4.0) gm/dl Albumin/Globulin Ratio 1.1 (0.9-2) Procalcitonin (0-0.5) ng/ml Urine Color Urine Appearance (Clear) Urine pH (4.5-7.5) Ur Specific [place] (1.000-1.030) Urine Protein (Negative) Urine Glucose (UA) (Negative) Urine Ketones (Negative) Urine Blood (Negative) Urine Nitrite (Negative) Urine Bilirubin (Negative) Urine Urobilinogen (Negative) Ur Leukocyte Esterase (Negative) Urine WBC (Auto) (0-5) /hpf Urine RBC (Auto) (0-4) /hpf U Hyaline Cast (Auto) (0-5) /lpf U Epithel Cells (Auto) (0-5) /lpf Urine Bacteria (Auto) (Negative) Urine Yeast (None Prsent) Diagnostic Findings Abdomen/Pelvis CT 05/07/23 19:06 Exam(s): CT ABDOMEN + PELVIS Without Contrast EXAM: CT Abdomen and Pelvis Without Intravenous Contrast CLINICAL HISTORY: Reason for exam: MIGEL. TECHNIQUE: Axial computed tomography images of the abdomen and pelvis without intravenous contrast. CTDI is 35.95 mGy and DLP is 1826.28 mGy-cm. Automated exposure control was utilized for the study. A dose lowering technique was utilized adhering to the principles of ALARA. COMPARISON: No relevant prior studies available. FINDINGS: Lung bases: Unremarkable. No mass. No consolidation. ABDOMEN: Liver: RIGHT hepatic low attenuation lesion measures 1.8 cm, which may represent a cyst. Gallbladder and bile ducts: Cholecystectomy. No ductal dilation. Pancreas: Unremarkable. No ductal dilation. Spleen: Unremarkable. No splenomegaly. Adrenals: Unremarkable. No mass. Kidneys and ureters: Unremarkable. No obstructing stones. No hydronephrosis. Stomach and bowel: Diverticulosis, without acute diverticulitis. No small bowel obstruction. No free intraperitoneal air. PELVIS: Appendix: No findings to suggest acute appendicitis. Bladder: Unremarkable. No stones. Reproductive: Hysterectomy. ABDOMEN and PELVIS: Intraperitoneal space: Free air in the RIGHT abdomen, inferior to the liver as well as posterior to the spine and right-sided subcutaneous fat. This is likely secondary to recent spinal surgery. No definite CT evidence of gastrointestinal perforation however, this should be correlated with physical exam. No significant fluid collection. Bones/joints: Posterior lumbar fusion hardware at L4-L5. Overlying cutaneous skin rayna. No acute fracture. No dislocation. Soft tissues: See above. Vasculature: Unremarkable. No abdominal aortic aneurysm. Lymph nodes: Unremarkable. No enlarged lymph nodes. IMPRESSION: 1. Free air in the RIGHT abdomen, inferior to the liver as well as posterior to the spine and right-sided subcutaneous fat. This is likely secondary to recent spinal surgery. No definite CT evidence of gastrointestinal perforation however, this should be correlated with physical exam. 2. Cholecystectomy. 3. Hysterectomy. 4. Posterior lumbar fusion hardware at L4-L5. Overlying cutaneous skin rayna. 5. Diverticulosis, without acute diverticulitis. No small bowel obstruction. No free intraperitoneal air. Electronically signed by: Rene Owusu MD 05/07/23 21:15 PM PG Care Time/CCT Total # of Minutes Spent Total Time Spent with Patient: Total time spent is greater than 50% in coordination of care (as documented) at patient's floor/unit and/or counseling patient: Coding Level of Care Code 54544 SUB INP/OBS CARE 3/50MIN Diagnoses Acute kidney injury N17.9 Acute blood loss anemia D62 Status post lumbar spine surgery for decompression of spinal cord Z98.890 Type II diabetes mellitus E11.9 Hypertension I10 Hyperlipidemia E78.5 Sleep apnea G47.30 Depression F32.9 Vitamin D insufficiency E55.9 Anxiety F41.9"
[2023-05-08 09:26] LABS: Basophils # (auto) 0.05 K/uL (0.00-0.20); Basophils % (auto) 0.6 %; Eosinophils # (auto) 0.37 K/uL (0.00-0.50); Eosinophils % (auto) 4.3 %; Hematocrit (blood only) 25.3 % (37.0-47.0); Hemoglobin 7.8 g/dl (12.0-16.0); Immature Granulocytes # (auto) 0.08 K/uL (0.01-0.20); Immature Granulocytes % (auto) 0.9 %; Lymphocytes % (auto) 12.8 %; Mean Corpuscular Hemoglobin 28.4 pg (25.0-34.0); Mean Corpuscular Hgb Conc 30.8 g/dL (32.0-36.0); Mean Platelet Volume 10.4 fL (9.4-12.4); Monocytes # (auto) 0.76 K/uL (0.11-0.59); Monocytes % (auto) 8.8 %; Neutrophils # (auto) 6.23 K/uL (1.40-6.50); Neutrophils % (auto) 72.6 %; Platelet Count 214 K/uL (130-400); RDW Coefficient of Variation 13.7 % (11.5-14.5); Red Blood Count 2.75 M/uL (4.20-5.40); White Blood Count 8.59 K/ul (4.8-10.8)
[2023-05-08] MEDS: SODIUM CHLORIDE 0.9% 1,000 ML IV SCH (09:29)
[2023-05-08 09:47] LABS: Polychromasia 1+
[2023-05-08 09:51] LABS: Albumin Globulin Ratio 1.2 (0.9-2); Albumin Level 3.2 gm/dl (3.4-5.0); BUN Creatinine Ratio 19.5 (10-20); Bilirubin,Total 0.4 mg/dl (0.2-1.0); Calcium 9.3 mg/dl (8.6-10.3); Creatinine Clr Calc Pharmacy 18.2 ml/min; Est GFR (African American) 16.3 ml/min; Est GFR (Non-African American) 14.1 ml/min; Globulin 2.7 gm/dl (2.5-4.0); Magnesium 1.9 mg/dl (1.7-2.4); Potassium 4.2 mmol/L (3.5-5.1); Total Protein 5.9 gm/dl (6.0-8.3)
[2023-05-08 11:11] LABS: Ferritin 296.6 ng/ml (8-388)
--- NOTE | 2023-05-08 12:41 | XRay Report ---
KUB HISTORY: Acute onset abdominal pain f/u free air, MIGEL COMPARISON: CT 05/07/2023 FINDINGS: Cholecystectomy. Nonobstructive bowel gas pattern. Anterior midline skin rayna. No renal calculi. No ureteral calculi. No pneumoperitoneum or pneumatosis. No fracture. IMPRESSION: 1. Nonobstructive bowel gas pattern. 2. No pneumoperitoneum identified by radiography. ACT 112: Negative or not required by law. The above report was generated using voice recognition software. It may contain grammatical, syntax o r spelling errors. Electronically signed by: Drake Robin M.D. 05/08/2023 12:38 PM
[2023-05-08] MEDS: CITALOPRAM 20 MG TAB PO SCH (20:34)
--- NOTE | 2023-05-08 21:33 | Billing Data ---
Date of Service May 08, 2023 Coding Level of Care Code 68859 INT INP/OBS CARE
[2023-05-09 07:03] LABS: Basophils # (auto) 0.04 K/uL (0.00-0.20); Basophils % (auto) 0.5 %; Eosinophils % (auto) 4.6 %; Hematocrit (blood only) 23.9 % (37.0-47.0); Hemoglobin 7.8 g/dl (12.0-16.0); Immature Granulocytes # (auto) 0.08 K/uL (0.01-0.20); Immature Granulocytes % (auto) 0.9 %; Lymphocytes # (auto) 1.45 K/uL (1.20-3.40); Lymphocytes % (auto) 16.8 %; Mean Corpuscular Hemoglobin 29.1 pg (25.0-34.0); Mean Corpuscular Hgb Conc 32.6 g/dL (32.0-36.0); Mean Corpuscular Volume 89.2 fL (80.0-100.0); Mean Platelet Volume 10.3 fL (9.4-12.4); Monocytes # (auto) 0.87 K/uL (0.11-0.59); Monocytes % (auto) 10.1 %; Neutrophils # (auto) 5.81 K/uL (1.40-6.50); Neutrophils % (auto) 67.1 %; Platelet Count 244 K/uL (130-400); RDW Coefficient of Variation 13.8 % (11.5-14.5); RDW Standard Deviation 45.1 fL (36.4-46.3); Red Blood Count 2.68 M/uL (4.20-5.40); Reticulocyte % 2.34 % (0.50-2.00); White Blood Count 8.65 K/ul (4.8-10.8)
[2023-05-09 07:30] LABS: RBC Morphology Unremarkable
[2023-05-09 07:35] LABS: Albumin Globulin Ratio 1.1 (0.9-2); Albumin Level 3.2 gm/dl (3.4-5.0); BUN Creatinine Ratio 18.5 (10-20); Bilirubin,Total 0.3 mg/dl (0.2-1.0); Calcium 9.5 mg/dl (8.6-10.3); Creatinine Clr Calc Pharmacy 22.2 ml/min; Est GFR (African American) 20.8 ml/min; Globulin 2.8 gm/dl (2.5-4.0); Magnesium 1.7 mg/dl (1.7-2.4); Potassium 4.3 mmol/L (3.5-5.1)
[2023-05-09 07:44] LABS: Folate (Folic Acid),Ser orPlas 6.67 ng/ml (>5.38)
--- NOTE | 2023-05-09 08:37 | Hospitalist Progress Note ---
"Date of Service May 09, 2023 Assessment & Plan (1) Acute kidney injury: Plan: Summary: Reshma is a 68F w/ PMH of HLD, HTN, ROSS, TII DM, thrombocytopenia, depression/anxiety, lumbar spinal stenosis/chronic LBP, and class III obesity who presented to the ED for abnormal labs and was found to be anemic w/ an MIGEL with Cr 3.64 * Patient recently had spinal surgery 05/01/23, was discharged with asymptomatic Hgb of 8.7. Does have hx GNB/right pyelonephritis June 2022, however unclear if back pain masking any underlying urine infection/CVA tenderness Urine cx pending, f/u Acute Kidney Injury Baseline 1.16, elevated to 1.36 post surgery, 3.64 on admission Patient endorses poor PO intake and hydration due to lack of appetite, also endorses taking her OZEMPIC ON SUNDAY, likely contributing to poor PO intake/diarrheal losses, as well as LIGHTHEADED/dizziness at home, suspect she was having some hypotension contributing to MIGEL as well s/p 1L NSS in ER, additional 2L on admission w/ repeat Cr to 3.18 Added NS @ 80cc/hr 05/07 and continued overnight BUN/Cr 48/2.60 this afternoon Continue NSS through this afternoon, reports improvement in PO intake and moving her bowels Blood cultures/urine cxs pending (noting no bacteria on UA however did have gutierrez w/ back surgery). Procal 0.35 but likely from anemia/reactive, WBC wnl, afebrile - holding off abx at this time. F/u urine/blood cultures Iron studies -- c/w anemia of chronic disease but low iron/trans % sat and will order dose Venofer for today, repeat in AM. B12/folate low normal -- PO replacement started and would continue at dc Avoid nephrotoxins, renal dose meds as able Monitoring overnight w/ labs in AM and if continued improvement will plan for dc tomorrow w/ repeat labs as outpatient. Would have her HOLD her losartan and metformin at discharge and STOP celebrex. Discuss ozempic resumption w/ PCP in follow up (2) Acute blood loss anemia: Plan: Baseline 11.3-11.7 PRIOR TO BACK SURGERY --> hgb 8.7 post surgery at discharge, was 8.4 on admission Likely 2/2 recent surgery/acute blood loss anemia from surgery/dilutional from IVF however ongoing Patient denies any hematuria, hematemesis, or hematochezia/melena Started GI Ppx w/ Protonic 40mg PO BID Hgb remains 7.8 but noting had received 3L IVF on admit and on continuous IVFM as noted and avoiding need for transfusion As above, iron studies acute on chronic disease --> Venofer x1, repeat for 05/09 B12 low normal 243, placed on PO supplementation and would continue at dc. Suspect 2nd metformin use at baseline Folate low normal 6.67, PO started and would continue Fecal occult NEGATIVE Monitor CBC in AM (3) Status post lumbar spine surgery for decompression of spinal cord: Plan: Recent Spinal Surgery | Chronic Low Back Pain Spinal Surgery 05/01/23: Lumbar 4-5 Lateral Interbody Fusion with Posterior Instrumentation, Lumbar Decompression L2-3, L3-4, L4-5, With Local Bone Graft Procedure performed due to Scoliosis of Lumbar Region Due to Degenerative Disease Patient discharged 05/02/23 asymptomatic w/ close follow up labs Hold Celebrex and Cyclobenzaprine d/t MIGEL, continue Percocet, ordered Dilaudid 0.25 for breakthrough pain Pain management noted to be adequate at home, currently stable and will monitor moving her bowels (4) Type II diabetes mellitus: Plan: hold metformin and Ozempic, SSI and BSG checks ACHS ordered Discussed w/ patient about holding her Ozempic at dc and discussing w/ PCP prior to resuming B12 low normal as above BSGs acceptable on SSI and will monitor (5) Hypertension: Plan: BP stable 162/76 in setting of hospital/pain from back/anxiety as above HOLDING her losartan given MIGEL as above (notable BP at dc 109/61) Would have losartan remain on hold until renal function normalized Monitor BP (6) Hyperlipidemia: Plan: hold statin (7) Sleep apnea: Plan: may use home CPAP, ordered HS -- has in room but hadn't used as mask too loose. will have RT see about mask (8) Depression: Plan: continue Citalopram Support provided (9) Vitamin D insufficiency: (10) Anxiety: Plan DVT Proph: SCDs for now, will hold off chemoproph given anemia as above. Ambulation encouraged Will consult PT given recent back surgery to ensure no needs at home Updated brother at bedside, entering room when leaving 05/08 case discussed w/ PCP, appt for close f/u arranged Dispo: planning for discharge 05/09 as long as renal function continues to improve Admission and Anticipated Discharge Date Admission Date: May 07, 2023 Supervising Physician Co-Signing Physician Notes The patient was not seen by me. The chart was reviewed. Case discussed with RUFUS Locke. Agree with assessment and plan Subjective Evaluated this morning, was upset/tearful this morning but discussed more anxious about not knowing why she needed to stay/what the plan was. Discussed suspicion for cause for Migel being hypotension in setting of surgery and continued BP medication, worsened by her NSAID use. Fecal occult negative but giving some iron and magnesium today. Pain to her back controlled, no urinary symptoms. Reports urine yellow in color. Moved her bowels yesterday. Pain controlled with ordered medications. Will anticipate discharge tomorrow with enforcement in instructions, discussed w/ her PCP this morning regarding plan. Brother updated at bedside. Questions/concerns addressed at this time. Physical Exam Physical Exam: General: 68yo female sitting up in bed, brother at bedside, NAD HEENT; head atraumatic, normocephalic, mm slightly dry, trachea midline Resp: even/unlabored, slightly diminished in the bases, on room air CV: RRR, +systolic murmur, no pitting edema GI:+ BS throughout, slight distension, nontender, no guarding/rebound : no gutierrez, no overt CVA tenderness MSK/Neuro: lumbar dressing w/ rayna intact, mild surrounding erythema but no active drainage Psych: AOx3, cooperative with exam Results & Data Results & Data Vital Signs (Past 12 Hours) Vital Signs Temp Pulse Resp BP Pulse Ox O2 Del Method 05/09/23 07:14 36.9 C 65 16 162/76 H 92 Room Air 05/08/23 20:47 36.9 C 62 20 140/68 95 Room Air Laboratory Results 05/09/23 05/09/23 05/08/23 Range/Units 07:40 06:33 20:20 WBC 8.65 (4.8-10.8) K/ul RBC 2.68 L (4.20-5.40) M/uL Hgb 7.8 L (12.0-16.0) g/dl Hct 23.9 L (37.0-47.0) % MCV 89.2 (80.0-100.0) fL MCH 29.1 (25.0-34.0) pg MCHC 32.6 (32.0-36.0) g/dL RDW Std Deviation 45.1 (36.4-46.3) fL RDW Coeff of Jeronimo 13.8 (11.5-14.5) % Plt Count 244 (130-400) K/uL MPV 10.3 (9.4-12.4) fL Immature Gran % (Auto) 0.9 % Neut % (Auto) 67.1 % Lymph % (Auto) 16.8 % [place] % (Auto) 10.1 % Eos % (Auto) 4.6 % Baso % (Auto) 0.5 % Reticulocyte % (Auto) 2.34 H (0.50-2.00) % Neut # (Auto) 5.81 (1.40-6.50) K/uL Lymph # (Auto) 1.45 (1.20-3.40) K/uL [place] # (Auto) 0.87 H (0.11-0.59) K/uL Eos # (Auto) 0.40 (0.00-0.50) K/uL Baso # (Auto) 0.04 (0.00-0.20) K/uL Reticulocyte # 0.060 (0.020-0.100) 10^6/uL Immature Gran # (Auto) 0.08 (0.01-0.20) K/uL RBC Morphology Unremarkable Polychromasia Sodium 141 (136-145) mmol/L Potassium 4.3 (3.5-5.1) mmol/L Chloride 111 H (98-107) mmol/L Carbon Dioxide 23 (21-32) mmol/L Anion Gap 7 (3-11) BUN 48 H (6-23) mg/dl Creatinine 2.60 H D (0.6-1.2) mg/dl Est Cr Clr Drug Dosing 22.2 ml/min Est GFR ( Amer) 20.8 ml/min Est GFR (Non-Af Amer) 18.0 ml/min BUN/Creatinine Ratio 18.5 (10-20) Glucose 95 (70-99(Fasting)) mg/dl POC Glucose 102 H 119 H (70-99) mg/dl Calcium 9.5 (8.6-10.3) mg/dl Magnesium 1.7 (1.7-2.4) mg/dl Iron (35-150) mcg/dl TIBC (250-450) mcg/dl Unsaturated IBC (155-355) mcg/dl Transferrin % Sat (15-50) % Ferritin (8-388) ng/ml Total Bilirubin 0.3 (0.2-1.0) mg/dl AST 16 (13-39) U/L ALT 12 (7-52) U/L Alkaline Phosphatase 84 (34-104) U/L Lactate Dehydrogenase 172 (86-244) U/L Total Protein 6.0 (6.0-8.3) gm/dl Albumin 3.2 L (3.4-5.0) gm/dl Globulin 2.8 (2.5-4.0) gm/dl Albumin/Globulin Ratio 1.1 (0.9-2) Vitamin B12 243 (180-914) pg/ml Folate 6.67 (>5.38) ng/ml Procalcitonin (0-0.5) ng/ml Stool Occult Bld Scrn (Negative) 05/08/23 05/08/23 05/08/23 Range/Units 16:33 15:42 11:28 WBC (4.8-10.8) K/ul RBC (4.20-5.40) M/uL Hgb (12.0-16.0) g/dl Hct (37.0-47.0) % MCV (80.0-100.0) fL MCH (25.0-34.0) pg MCHC (32.0-36.0) g/dL RDW Std Deviation (36.4-46.3) fL RDW Coeff of Jeronimo (11.5-14.5) % Plt Count (130-400) K/uL MPV (9.4-12.4) fL Immature Gran % (Auto) % Neut % (Auto) % Lymph % (Auto) % [place] % (Auto) % Eos % (Auto) % Baso % (Auto) % Reticulocyte % (Auto) (0.50-2.00) % Neut # (Auto) (1.40-6.50) K/uL Lymph # (Auto) (1.20-3.40) K/uL [place] # (Auto) (0.11-0.59) K/uL Eos # (Auto) (0.00-0.50) K/uL Baso # (Auto) (0.00-0.20) K/uL Reticulocyte # (0.020-0.100) 10^6/uL Immature Gran # (Auto) (0.01-0.20) K/uL RBC Morphology Polychromasia Sodium (136-145) mmol/L Potassium (3.5-5.1) mmol/L Chloride (98-107) mmol/L Carbon Dioxide (21-32) mmol/L Anion Gap (3-11) BUN (6-23) mg/dl Creatinine (0.6-1.2) mg/dl Est Cr Clr Drug Dosing ml/min Est GFR ( Amer) ml/min Est GFR (Non-Af Amer) ml/min BUN/Creatinine Ratio (10-20) Glucose (70-99(Fasting)) mg/dl POC Glucose 116 H 119 H (70-99) mg/dl Calcium (8.6-10.3) mg/dl Magnesium (1.7-2.4) mg/dl Iron (35-150) mcg/dl TIBC (250-450) mcg/dl Unsaturated IBC (155-355) mcg/dl Transferrin % Sat (15-50) % Ferritin (8-388) ng/ml Total Bilirubin (0.2-1.0) mg/dl AST (13-39) U/L ALT (7-52) U/L Alkaline Phosphatase (34-104) U/L Lactate Dehydrogenase (86-244) U/L Total Protein (6.0-8.3) gm/dl Albumin (3.4-5.0) gm/dl Globulin (2.5-4.0) gm/dl Albumin/Globulin Ratio (0.9-2) Vitamin B12 (180-914) pg/ml Folate (>5.38) ng/ml Procalcitonin (0-0.5) ng/ml Stool Occult Bld Scrn Negative (Negative) 05/08/23 Range/Units 09:03 WBC 8.59 (4.8-10.8) K/ul RBC 2.75 L (4.20-5.40) M/uL Hgb 7.8 L (12.0-16.0) g/dl Hct 25.3 L (37.0-47.0) % MCV 92.0 (80.0-100.0) fL MCH 28.4 (25.0-34.0) pg MCHC 30.8 L (32.0-36.0) g/dL RDW Std Deviation 46.0 (36.4-46.3) fL RDW Coeff of Jeronimo 13.7 (11.5-14.5) % Plt Count 214 (130-400) K/uL MPV 10.4 (9.4-12.4) fL Immature Gran % (Auto) 0.9 % Neut % (Auto) 72.6 % Lymph % (Auto) 12.8 % [place] % (Auto) 8.8 % Eos % (Auto) 4.3 % Baso % (Auto) 0.6 % Reticulocyte % (Auto) (0.50-2.00) % Neut # (Auto) 6.23 (1.40-6.50) K/uL Lymph # (Auto) 1.10 L (1.20-3.40) K/uL [place] # (Auto) 0.76 H (0.11-0.59) K/uL Eos # (Auto) 0.37 (0.00-0.50) K/uL Baso # (Auto) 0.05 (0.00-0.20) K/uL Reticulocyte # (0.020-0.100) 10^6/uL Immature Gran # (Auto) 0.08 (0.01-0.20) K/uL RBC Morphology Polychromasia 1+ Sodium 138 (136-145) mmol/L Potassium 4.2 (3.5-5.1) mmol/L Chloride 108 H (98-107) mmol/L Carbon Dioxide 21 (21-32) mmol/L Anion Gap 9 (3-11) BUN 62 H (6-23) mg/dl Creatinine 3.18 H D (0.6-1.2) mg/dl Est Cr Clr Drug Dosing 18.2 ml/min Est GFR ( Amer) 16.3 ml/min Est GFR (Non-Af Amer) 14.1 ml/min BUN/Creatinine Ratio 19.5 (10-20) Glucose 114 H (70-99(Fasting)) mg/dl POC Glucose (70-99) mg/dl Calcium 9.3 (8.6-10.3) mg/dl Magnesium 1.9 (1.7-2.4) mg/dl Iron 22 L (35-150) mcg/dl TIBC 210 L (250-450) mcg/dl Unsaturated IBC 188 (155-355) mcg/dl Transferrin % Sat 10 L (15-50) % Ferritin 296.6 (8-388) ng/ml Total Bilirubin 0.4 (0.2-1.0) mg/dl AST 18 (13-39) U/L ALT 14 (7-52) U/L Alkaline Phosphatase 96 (34-104) U/L Lactate Dehydrogenase (86-244) U/L Total Protein 5.9 L (6.0-8.3) gm/dl Albumin 3.2 L (3.4-5.0) gm/dl Globulin 2.7 (2.5-4.0) gm/dl Albumin/Globulin Ratio 1.2 (0.9-2) Vitamin B12 (180-914) pg/ml Folate (>5.38) ng/ml Procalcitonin 0.35 (0-0.5) ng/ml Stool Occult Bld Scrn (Negative) Diagnostic Findings KUB X-Ray 05/08/23 11:07 KUB HISTORY: Acute onset abdominal pain f/u free air, MIGEL COMPARISON: CT 05/07/2023 FINDINGS: Cholecystectomy. Nonobstructive bowel gas pattern. Anterior midline skin rayna. No renal calculi. No ureteral calculi. No pneumoperitoneum or pneumatosis. No fracture. IMPRESSION: 1. Nonobstructive bowel gas pattern. 2. No pneumoperitoneum identified by radiography. ACT 112: Negative or not required by law. The above report was generated using voice recognition software. It may contain grammatical, syntax or spelling errors. Electronically signed by: Drake Robin M.D. 05/08/2023 12:38 PM PG Care Time/CCT Total # of Minutes Spent Total Time Spent with Patient: Total time spent is greater than 50% in coordination of care (as documented) at patient's floor/unit and/or counseling patient: Coding Level of Care Code 68017 SUB INP/OBS CARE 3/50MIN Diagnoses Acute kidney injury N17.9 Acute blood loss anemia D62 Status post lumbar spine surgery for decompression of spinal cord Z98.890 Type II diabetes mellitus E11.9 Hypertension I10 Hyperlipidemia E78.5 Sleep apnea G47.30 Depression F32.9 Vitamin D insufficiency E55.9 Anxiety F41.9"
[2023-05-09] MEDS: IRON SUCROSE 300 MG in SODIUM CHLORIDE 0.9% 250 ML IV ONE (10:06)
[2023-05-09] MEDS: CYANOCOBALAMIN (B-12) 500 MCG TABLET PO SCH (10:06)
[2023-05-09] MEDS: FOLIC ACID 1 MG TAB PO SCH (10:06)
[2023-05-10] MEDS: ACETAMINOPHEN 325 MG TAB PO PRN (00:04)
[2023-05-10 06:17] LABS: Hematocrit (blood only) 23.7 % (37.0-47.0); Hemoglobin 7.7 g/dl (12.0-16.0); Mean Corpuscular Hemoglobin 28.8 pg (25.0-34.0); Mean Corpuscular Hgb Conc 32.5 g/dL (32.0-36.0); Mean Corpuscular Volume 88.8 fL (80.0-100.0); Mean Platelet Volume 10.3 fL (9.4-12.4); Platelet Count 249 K/uL (130-400); RDW Standard Deviation 45.1 fL (36.4-46.3); Red Blood Count 2.67 M/uL (4.20-5.40); White Blood Count 8.19 K/ul (4.8-10.8)
[2023-05-10 06:28] LABS: BUN Creatinine Ratio 17.8 (10-20); Calcium 9.4 mg/dl (8.6-10.3); Creatinine Clr Calc Pharmacy 29.3 ml/min; Est GFR (African American) 29.1 ml/min; Est GFR (Non-African American) 25.1 ml/min; Magnesium 1.4 mg/dl (1.7-2.4); Potassium 3.8 mmol/L (3.5-5.1)
--- NOTE | 2023-05-10 08:46 | Hospitalist Progress Note ---
"Date of Service May 10, 2023 Assessment & Plan (1) Acute kidney injury: Plan: Summary: Reshma is a 68F w/ PMH of HLD, HTN, ROSS, TII DM, thrombocytopenia, depression/anxiety, lumbar spinal stenosis/chronic LBP, and class III obesity who presented to the ED for abnormal labs and was found to be anemic w/ an MIGEL with Cr 3.64 * Patient recently had spinal surgery 05/01/23, was discharged with asymptomatic Hgb of 8.7. Does have hx GNB/right pyelonephritis June 2022, however unclear if back pain masking any underlying urine infection/CVA tenderness Urine cx pending, f/u Acute Kidney Injury Baseline 1.16, elevated to 1.36 post surgery, 3.64 on admission Patient endorses poor PO intake and hydration due to lack of appetite, also endorses taking her OZEMPIC ON SUNDAY, likely contributing to poor PO intake/diarrheal losses, as well as LIGHTHEADED/dizziness at home, suspect she was having some hypotension contributing to MIGEL as well s/p 1L NSS in ER, additional 2L on admission w/ repeat Cr to 3.18 Added NS @ 80cc/hr 05/07 and continued overnight BUN/Cr 48/2.60 this afternoon Continue NSS through this afternoon, reports improvement in PO intake and moving her bowels Blood cultures/urine cxs pending (noting no bacteria on UA however did have gutierrez w/ back surgery). Procal 0.35 but likely from anemia/reactive, WBC wnl, afebrile - holding off abx at this time. F/u urine/blood cultures Iron studies -- c/w anemia of chronic disease but low iron/trans % sat and will order dose Venofer for today, repeat in AM. B12/folate low normal -- PO replacement started and would continue at dc Avoid nephrotoxins, renal dose meds as able Monitoring overnight w/ labs in AM and if continued improvement will plan for dc tomorrow w/ repeat labs as outpatient. Would have her HOLD her losartan and metformin at discharge and STOP celebrex. Discuss ozempic resumption w/ PCP in follow up (2) Acute blood loss anemia: Plan: Baseline 11.3-11.7 PRIOR TO BACK SURGERY --> hgb 8.7 post surgery at discharge, was 8.4 on admission Likely 2/2 recent surgery/acute blood loss anemia from surgery/dilutional from IVF however ongoing Patient denies any hematuria, hematemesis, or hematochezia/melena Started GI Ppx w/ Protonic 40mg PO BID Hgb remains 7.8 but noting had received 3L IVF on admit and on continuous IVFM as noted and avoiding need for transfusion As above, iron studies acute on chronic disease --> Venofer x1, repeat for 05/09 B12 low normal 243, placed on PO supplementation and would continue at dc. Suspect 2nd metformin use at baseline Folate low normal 6.67, PO started and would continue Fecal occult NEGATIVE Monitor CBC in AM (3) Status post lumbar spine surgery for decompression of spinal cord: Plan: Recent Spinal Surgery | Chronic Low Back Pain Spinal Surgery 05/01/23: Lumbar 4-5 Lateral Interbody Fusion with Posterior Instrumentation, Lumbar Decompression L2-3, L3-4, L4-5, With Local Bone Graft Procedure performed due to Scoliosis of Lumbar Region Due to Degenerative Disease Patient discharged 05/02/23 asymptomatic w/ close follow up labs Hold Celebrex and Cyclobenzaprine d/t MIGEL, continue Percocet, ordered Dilaudid 0.25 for breakthrough pain Pain management noted to be adequate at home, currently stable and will monitor moving her bowels (4) Type II diabetes mellitus: Plan: hold metformin and Ozempic, SSI and BSG checks ACHS ordered Discussed w/ patient about holding her Ozempic at dc and discussing w/ PCP prior to resuming B12 low normal as above BSGs acceptable on SSI and will monitor (5) Hypertension: Plan: BP stable 162/76 in setting of hospital/pain from back/anxiety as above HOLDING her losartan given MIGEL as above (notable BP at dc 109/61) Would have losartan remain on hold until renal function normalized Monitor BP (6) Hyperlipidemia: Plan: hold statin (7) Sleep apnea: Plan: may use home CPAP, ordered HS -- has in room but hadn't used as mask too loose. will have RT see about mask (8) Depression: Plan: continue Citalopram Support provided (9) Vitamin D insufficiency: (10) Anxiety: Plan DVT Proph: SCDs for now, will hold off chemoproph given anemia as above. Ambulation encouraged Will consult PT given recent back surgery to ensure no needs at home Updated brother at bedside, entering room when leaving 05/08 case discussed w/ PCP, appt for close f/u arranged Dispo: planning for discharge 05/09 as long as renal function continues to improve Admission and Anticipated Discharge Date Admission Date: May 07, 2023 Subjective Evaluated this morning, was anxious/upset this morning about continued inpatient stay, given ativan and reported significant improvement. Discussed possible dc today, she states she would if she knows she doesn't have to come back. Reports making good urine, yellow in color. BP stable off meds and to continue to hold. Getting IV magnesium this morning as well as Venofer but will have PT see as she initially declined as was upset this morning and arrange for home health therapy at dc if needs based on therapy evaluation. No fever/chills, chest pain, shortness of breath. Utilized supplemental O2 overnight and discussed CM to contact her [employer] company about getting her a new mask. Questions/concerns addressed at this time, updated at bedside. Results & Data Results & Data Vital Signs (Past 12 Hours) Vital Signs Temp Pulse Resp BP Pulse Ox O2 Del Method 05/10/23 05:41 36.4 C L 57 L 16 135/67 96 Room Air PG Care Time/CCT Total # of Minutes Spent Total Time Spent with Patient: Total time spent is greater than 50% in coordination of care (as documented) at patient's floor/unit and/or counseling patient: Coding Diagnoses Acute kidney injury N17.9 Acute blood loss anemia D62 Status post lumbar spine surgery for decompression of spinal cord Z98.890 Type II diabetes mellitus E11.9 Hypertension I10 Hyperlipidemia E78.5 Sleep apnea G47.30 Depression F32.9 Vitamin D insufficiency E55.9 Anxiety F41.9"
[2023-05-10] MEDS: IRON SUCROSE 300 MG in SODIUM CHLORIDE 0.9% 250 ML IV SCH (08:52)
[2023-05-10] MEDS: MAGNESIUM SULFATE / D5W 1 GM/100 ML BAG IV SCH (08:52)
[2023-05-10] MEDS: LORazepam 0.5 MG TAB SL STA (08:59)
--- NOTE | 2023-05-10 13:20 | Discharge Summary ---
"Date of Service May 10, 2023 Admission HPI Per Admitting Provider Reshma is a 68F w/ PMH of HLD, HTN, ROSS, TII DM, thrombocytopenia, depression/anxiety, lumbar spinal stenosis/chronic LBP, and class III obesity who presented to the ED for abnormal labs and was found to be anemic w/ an MIGEL. Patient recently had spinal surgery 05/01/23, was discharged with asymptomatic Hgb of 8.7. ED Course: S/p 1L NSS Patient notes that she is overall feeling well and only presented due to abnormal labs outpatient. She states that since her surgery she has had a poor appetite and has not been able to eat more than cottage cheese and occasional fruit. Furthermore, her only source of hydration is the 40-60 ounces of iced tea she drinks in a day. Patient endorses good pain control with home regimen. She denies chest pain, dyspnea, nausea, emesis, lightheadedness, dizziness or bowel/bladder changes. She notes that she urinates 4-5 times a day, clear-yellow urine. She has not had any hematuria, hematochezia, or melena. She has moved her bowels multiple times since surgery. Patient has a history of T2DM for which she takes Ozempic (started in December) and Metformin, but has no known history of CKD. Admission Exam Per Admitting Provider Gen: NAD, alert, interactive HEENT: Supple, no LAD, no thyromegaly, no JVD Resp:Non-labored, no wheezing/rhonchi/rales, CTAB CV:RRR, normal S1/S2, 2/6 systolic murmur Abd: Soft, non-distended, no TTP, normoactive bowels, no masses Extr: 2+ dp bilaterally, no edema Skin: No rashes lesions or erythema Back: Midline incision present over lumbar spine, rayna intact, minimal surrounding erythema, no purulence, scant serous drainage Principal Diagnosis Acute kidney injury, anemia Discharge Exam General: 68yo female sitting up in bed, at bedside, just woke up from resting after ativan, inquiring about home HEENT; head atraumatic, normocephalic, mmm, trachea midline Resp: even/unlabored, slightly diminished in the bases, on room air CV: RRR, +systolic murmur, no pitting edema GI:+ BS throughout, nontender, no guarding/rebound : no gutierrez, no overt CVA tenderness MSK/Neuro: lumbar dressing w/ rayna intact, mild surrounding erythema but no active drainage Psych: AOx3, cooperative with exam Discharge Data Allergies Allergy/AdvReac Type Severity Reaction Status Date / Time Sulfa (Sulfonamide Allergy Intermediate Hives Verified 05/07/23 21:45 Antibiotics) Ordered Studies Abdomen/Pelvis CT 05/07/23 19:06 Exam(s): CT ABDOMEN + PELVIS Without Contrast EXAM: CT Abdomen and Pelvis Without Intravenous Contrast CLINICAL HISTORY: Reason for exam: MIGEL. TECHNIQUE: Axial computed tomography images of the abdomen and pelvis without intravenous contrast. CTDI is 35.95 mGy and DLP is 1826.28 mGy-cm. Automated exposure control was utilized for the study. A dose lowering technique was utilized adhering to the principles of ALARA. COMPARISON: No relevant prior studies available. FINDINGS: Lung bases: Unremarkable. No mass. No consolidation. ABDOMEN: Liver: RIGHT hepatic low attenuation lesion measures 1.8 cm, which may represent a cyst. Gallbladder and bile ducts: Cholecystectomy. No ductal dilation. Pancreas: Unremarkable. No ductal dilation. Spleen: Unremarkable. No splenomegaly. Adrenals: Unremarkable. No mass. Kidneys and ureters: Unremarkable. No obstructing stones. No hydronephrosis. Stomach and bowel: Diverticulosis, without acute diverticulitis. No small bowel obstruction. No free intraperitoneal air. PELVIS: Appendix: No findings to suggest acute appendicitis. Bladder: Unremarkable. No stones. Reproductive: Hysterectomy. ABDOMEN and PELVIS: Intraperitoneal space: Free air in the RIGHT abdomen, inferior to the liver as well as posterior to the spine and right-sided subcutaneous fat. This is likely secondary to recent spinal surgery. No definite CT evidence of gastrointestinal perforation however, this should be correlated with physical exam. No significant fluid collection. Bones/joints: Posterior lumbar fusion hardware at L4-L5. Overlying cutaneous skin rayna. No acute fracture. No dislocation. Soft tissues: See above. Vasculature: Unremarkable. No abdominal aortic aneurysm. Lymph nodes: Unremarkable. No enlarged lymph nodes. IMPRESSION: 1. Free air in the RIGHT abdomen, inferior to the liver as well as posterior to the spine and right-sided subcutaneous fat. This is likely secondary to recent spinal surgery. No definite CT evidence of gastrointestinal perforation however, this should be correlated with physical exam. 2. Cholecystectomy. 3. Hysterectomy. 4. Posterior lumbar fusion hardware at L4-L5. Overlying cutaneous skin rayna. 5. Diverticulosis, without acute diverticulitis. No small bowel obstruction. No free intraperitoneal air. Electronically signed by: Rene Owusu MD 05/07/23 21:15 PM KUB X-Ray 05/08/23 11:07 KUB HISTORY: Acute onset abdominal pain f/u free air, MIGEL COMPARISON: CT 05/07/2023 FINDINGS: Cholecystectomy. Nonobstructive bowel gas pattern. Anterior midline skin rayna. No renal calculi. No ureteral calculi. No pneumoperitoneum or pneumatosis. No fracture. IMPRESSION: 1. Nonobstructive bowel gas pattern. 2. No pneumoperitoneum identified by radiography. ACT 112: Negative or not required by law. The above report was generated using voice recognition software. It may contain grammatical, syntax or spelling errors. Electronically signed by: Drake Robin M.D. 05/08/2023 12:38 PM Hospital Course (1) Acute kidney injury: Summary: Reshma is a 68F w/ PMH of HLD, HTN, ROSS, TII DM, thrombocytopenia, depression/anxiety, lumbar spinal stenosis/chronic LBP, and class III obesity who presented to the ED for abnormal labs and was found to be anemic w/ an MIGEL with Cr 3.64 following spinal surgery with Dr Bravo on 04/30, discharged with hgb 8.7 and Cr 1.36 and continued on her losartan along with celebrex for pain control at discharge. Cr at baseline ~1.16 CTAP on admission noting cholecystectomy, hysterectomy, diverticulosis without acute diverticulitis, no small bowel obstruction. Free air in R abd inferior to liver suspected 2nd to recent spinal surgery (KUB witout pneumoperitoneum, no abd pain on exam) Patient did report poor PO intake/hydration due to lack of appetite and also likely worsened by her taking her OZEMPIC this past sunday and reported some lightheaded/dizziness at home and suspect she may have had some hypotension contributing along with her losartan/celebrex use and ongoing metformin for her DM. Urine cx negative, moderate counts mixed skin km, no evidence for infection. Was provided 1L NSS in ER, additional 2L on admission and continued NS @ 80cc/hr overnight through 05/08 and improvement in PO intake (also had been moving her bowels) and continued to report good urine output/clear yellow in color and suspect will normalize with continuing to hold nephrotoxic agents. Of note, did check fecal occult which was NEGATIVE. Retic count elevated and indicates making new RBC. Did check iron studies for completeness and appear acute on chronic disease. Again fecal occult testing negative but did give Venofer IV x 2 doses while inpatient Also checked B12/folate given low iron and normal MCV and B12 and folate low normal and supplementation started and continued at discharge. Cr improved from 3.64--> 3.18 --> 2.6 and further improved to 1.97 off of her IVF and continued to hold her home losartan and BPs stable in setting of pain/anxiety in hospital at 135/67 prior to discharge. Instructed patient to continue to hold her home losartan at discharge, DISCONTINUED celebrex and instructed to hold her home metformin and ozempic at discharge until discussed in follow up with primary care. Messaged primary care of [place] for today. Avoidance of NSAIDs encouraged in meantime at [place] BMP outpatient and f/u PCP ordered along w/ CBC to ensure hgb levels stable given below (2) Acute blood loss anemia: Baseline 11.3-11.7 PRIOR TO BACK SURGERY --> hgb 8.7 post surgery at discharge, was 8.4 on admission Likely 2/2 recent surgery/acute blood loss anemia from surgery/dilutional from IVF Patient denies any hematuria, hematemesis, or hematochezia/melena Started GI Ppx w/ Protonix 40mg PO BID, continued for month at [place] for GI proph in case given improvement in PO intake Hgb 7.7 on repeat but had received 3L IVF on admission and continuous IVF as above through 05/08 and suspect aspect of dilution Fecal occult NEGATIVE Venofer x 2, f/u PCP and can consider PO (has been moving her bowels while inpatient) B12 and folate low normal and started and continued supplementation at [place] Retic count ELEVATED TSH wnl CBC outpatient as above and f/u PCP (3) Status post lumbar spine surgery for decompression of spinal cord: Recent Spinal Surgery | Chronic Low Back Pain Spinal Surgery 05/01/23: Lumbar 4-5 Lateral Interbody Fusion with Posterior Instrumentation, Lumbar Decompression L2-3, L3-4, L4-5, With Local Bone Graft Procedure performed due to Scoliosis of Lumbar Region Due to Degenerative Disease Patient discharged 3/27/24 asymptomatic w/ close follow up labs Held Celebrex and Cyclobenzaprine d/t MIGEL on admission -- DC'd celebrex at dc, cautious use flexeril if needed and encouraged use percocet/tylenol for pain Utilized percocet/small dose IV dilaudid while inpatient and pain controlled Moving her bowels PT eval'd to ensure no needs at dc and stable for dc home w/ (4) Type II diabetes mellitus: held metformin and Ozempic, SSI and BSG checks ACHS ordered while inpatient BSGs WELL controlled and on low end while inpatient but no hypoglycemia To hold her Ozempic and metformin as above at dc and f/u pcp w/ labs and discuss prior to resuming. consider holding off her ozempic for a week or two in meantime given new med in past several months (5) Hypertension: BP stable in setting of hospital/pain from back/anxiety as above HOLDING her losartan given MIGEL as above and BPs remaining stable OFF her losartan and instructed to continue to hold at dc until renal function back to baseline and monitor her BPs at home and alert PCP if elevated in home environment given stress inpatient causes severe anxiety (6) Hyperlipidemia: resume statin at dc (7) Sleep apnea: may use home CPAP, ordered HS -- has in room but hadn't used as mask too loose --> CM contacting her [employer] to provider her new mask compliance at [place] encouraged (8) Depression: continued Citalopram Support provided and did have significant anxiety which appears to occur when she is in the hospital. She did get ativan 0.5mg PO x 1 for anxiety AM 4/ about continued inaptient stay and declined need at dc but encouraged continued f/u discussions w/ PCP and discussed can alert providers during any future hospital izations to inquire about adding as needed to prevent issues she reported anxiety much better at home and will discuss w/ Danisha Mcintosh in f/u on Sunday (9) Vitamin D insufficiency: (10) Anxiety: see depression above Plan DVT Proph: SCDs for now, hold off chemoproph given anemia as above. Ambulation encouraged. No evidence for DVT on exam or calf tenderness reported PT cleared for dc home without needs To hold her losartan/metformin/ozempic at dc, celebrex discontinued and to avoid NSAIDs. To return if any decreased UOP/darkened urine but reporting good output and clear yellow in color and suspect will normalize with time and holding nephrotoxic agents Repeat labs for tomorrow and f/u PCP on sunday Total Time Total Time Spent Total Time Spent (In Minutes): 50 Discharge Plan Discharge Items Patient Disposition: Home - Self-Care Reason For Visit: MIGEL/ANEMIA Discharge Diagnosis: Acute kidney injury, anemia Goals: You have been hospitalized for an acute medical problem. During your stay at [facility], we have made an effort to correct the problem that brought you to the hospital while keeping you as comfortable as possible. Medications were used to bring your condition under control and your discharge instructions will include directions for any medications you should take after leaving the hospital. Please make sure you see your Primary Care Provider as part of your follow up plan. Activity: As commented below Non-emergency contact: Primary Care Provider Call non-emergency contact if: you have any medication questions, your symptoms worsen and your pain is not controlled Follow-up/Referrals: Danisha Gage CRNP [Primary Care Provider] - 05/15/23 4:00 pm Diet: Carb Consistent or DM2 and Heart Healthy Ambulatory Orders: Basic Metabolic Panel (Routine) Timeframe: 20230511 Location: Determined by Patient Ordered By: Edwige Francis Complete Blood Count no Diff (Routine) Timeframe: 20230511 Location: Determined by Patient Ordered By: Edwige Francis Magnesium (Routine) Timeframe: 20230511 Location: Determined by Patient Ordered By: Edwige Francis Addtl Attending Provider Instructions: You have been hospitalized for elevated kidney function (acute kidney injury) and low hemoglobin counts. We suspect this acute kidney injury is from low blood pressure along with continued use of your losartan post-operatively along with NSAIDs (celebrex) and metformin. We have provided IV fluids and held some of your home medications that were likely contributing. At discharge, you should STOP any further CELEBREX and utilize oxycodone as needed instead for pain during this time. You should HOLD your METFORMIN as well as your LOSARTAN until repeat labs with primary care later this week to ensure returning to normal baseline. Your stool was tested and negative for blood. Your iron studies were checked and on low normal side. You were given IV dose of iron and can continue over the counter daily in follow up with primary care along with stool softener for constipation. We have checked folate/b12 levels due to anemia and these were borderline low and you have been continued on supplementation. You should hold off taking your Ozempic until you talk with primary care as this can cause decreased intake and in setting of medications with risk of dehydration would prefer you talk with primary care before resuming. Urine and blood cultures are pending at discharge but your white count was normal and you remained without a fever. These are negative at present time but there is possibility of having urinary tract infection contributing and you should monitor for any symptoms of burning/fever/increased urination. Please follow up with primary care in the next week to monitor your progress after discharge. I have put in for repeat labs to be drawn later this week. Please monitor your blood pressures at home to ensure not having any lows and to keep an eye on how these are trending. If any lows, please alert primary care, especially if any lightheaded/dizziness. Please return to the ER with any fevers/chills, chest pain, shortness of breath, abdominal pain, nausea/vomiting or any other symptoms concerning for you. Take care! Pending Studies at Discharge: Yes Studies:: blood cultures -- no growth to date after 48 hours urine culture NEGATIVE Stand-Alone Forms: My [facility], Smoking Cessation Medications and DC Order Prescriptions: New cyanocobalamin (vitamin B-12) 500 mcg Tablet 1,000 mcg PO QAM Qty: 30 0RF pantoprazole 40 mg Tablet,Delayed Release (Dr/Ec) 40 mg PO BID Qty: 28 0RF folic acid 1 mg Tablet 1 mg PO QAM Qty: 30 0RF Continued citalopram 40 mg tablet 40 mg PO QAM Qty: 90 3RF citalopram 20 mg tablet 20 mg PO QPM Qty: 90 3RF docusate sodium [Stool Softener] 100 mg capsule 100 mg PO BID prevagen 1 dose PO QAM polyethylene glycol 3350 [ClearLax] 17 gram/dose powder 17 g PO QAM cholecalciferol (vitamin D3) 2,000 unit Tablet 2,000 unit PO QAM montelukast 10 mg tablet 10 mg PO HS PRN (Reason: Allergy Symptoms) rosuvastatin 40 mg tablet 40 mg PO QAM oxycodone-acetaminophen [Percocet] 5-325 mg Tablet 1 tab PO Q6 PRN (Reason: pain) Qty: 28 0RF Held metformin 500 mg tablet 500 mg PO BID Qty: 180 3RF Hold Instructions: Resume on 05/16/23. losartan 50 mg tablet 50 mg PO QAM Qty: 90 3RF Hold Instructions: Resume on 05/08/23. hold until you hear from your PCP regarding your lab results Rx Instructions: ON HOLD cyclobenzaprine 10 mg tablet 10 mg PO TID PRN (Reason: muscle spasm) Qty: 90 1RF Hold Instructions: Resume on 05/30/23. Patient Comments: rarely takes semaglutide 1 mg/dose (4 mg/3 mL) pen injector 1 mg subcut WK Hold Instructions: Resume on 05/16/23. Patient Comments: sundays Rx Instructions: SUNDAYS Discontinued celecoxib [Celebrex] 100 mg capsule 100 mg PO BID Discharge Orders: Discharge Order (Routine); Ordered 05/10/23 Ordered By: Edwige Francis Admission Data Admit Date/Time: 05/07/23 22:23 Attending Provider: Hari Arnold Admit Provider: Eber Castillo Primary Care Provider: Danisha Gage Other Interventions: Discharge Summary Assessment (RN) Last Done: 05/10/23 15:21 Supervising Physician Co-Signing Physician Notes The patient was not seen by me. The chart was reviewed. Case discussed with RUFUS Locke. Agree with assessment and plan Coding Level of Care Code 12819 INP/OBS DISCH >30 MIN Diagnoses Acute kidney injury N17.9 Acute blood loss anemia D62 Status post lumbar spine surgery for decompression of spinal cord Z98.890 Type II diabetes mellitus E11.9 Hypertension I10 Hyperlipidemia E78.5 Sleep apnea G47.30 Depression F32.9 Vitamin D insufficiency E55.9 Anxiety F41.9"
== END 2023-05-10 15:54 | disposition home or self-care (01) | DRG 683 ==
LOC: ED 17:31 → SUATTDRO 22:23 → 3W 22:23 → INTOOBSV 22:23 → 3W 23:26